=== PATIENT | female | born 1935 | race Caucasian/White ===

== ENCOUNTER 2017-01-10 14:00 | Inpatient (IN) | payer MEDICARE ==
[~2017-01-10] VITALS: Ht 154.9 cm; Wt 46.3 kg
[2017-01-10] VITALS: BP 103/32
[~2017-01-10 14:00] MED LIST: ALBU2.5V11 NEB; ASPI81TA2 PO; LACT1CAP69 PO; LEVO50TA8 PO
[2017-01-10] MEDS ORDERED: IPRATROPIUM NEB FS 0.5 MG/2.5 ML AMPUL.NEB NEB ONE (14:30)
[2017-01-10] MEDS ORDERED: ACETAMINOPHEN ES 500 MG TABLET PO ONE (14:30)
[2017-01-10] MEDS ORDERED: ALBUTEROL FS 2.5 MG/3 ML VIAL.NEB NEB ONE (14:30)
[2017-01-10] MEDS ORDERED: IV NS 0.9% 1,000 ML BAG IV ONE (14:30)
[2017-01-10] MEDS ORDERED: ACETAMINOPHEN ES 500 MG TABLET ONE (14:34)
--- NOTE | 2017-01-10 14:45 | NUR ---
PT C/O SOB SHAKING . IV STARTED 20 RT AC LABS DRAWN SENT TO LAB IV NS INFUSING WELL VSS O2 SATS 2L 98%. SON AT BEDSIDE . LIVES WITH HIS MOTHER .
[2017-01-10 15:08] LABS: EOSINOPHILS # (AUTO) 0.1 /CMM (0.0-0.7); EOSINOPHILS % (AUTO) 0.6 % (0.0-6.0); HEMATOCRIT 30 % (33-45); MEAN CORPUSCULAR HGB CONC 34 g/dl (31.0-36.0); MONOCYTES # (AUTO) 1.5 /CMM (0.1-1.30); NEUTROPHILS # (AUTO) 13.3 /CMM (1.8-8.9); WHITE BLOOD COUNT (AUTO) 16.5 K/uL (4.3-11.0)
[2017-01-10 15:18] LABS: BASOPHILS # (AUTO) 0.1 /CMM (0.0-0.2); BASOPHILS % (AUTO) 0.9 % (0.0-2.0); LYMPHOCYTES # (AUTO) 1.5 /CMM (0.8-4.8); LYMPHOCYTES % (AUTO) 8.9 % (20.0-44.0); MEAN CORPUSCULAR HEMOGLOBIN 31 PG (26.0-33.0); MEAN CORPUSCULAR VOLUME 92 fL (82-100); MONOCYTES % (AUTO) 8.9 % (2.0-12.0); NEUTROPHILS % (AUTO) 80.7 % (43.0-81.0); PLATELET COUNT (AUTO) 195 /CMM (150-450); RED BLOOD CELL COUNT(AUTO) 3.27 MIL/uL (4.0-5.2)
[2017-01-10 15:24] LABS: CALCIUM, SERUM 8.8 mg/dL (8.5-10.1); CARBON DIOXIDE 31 mmol/L (21-32); CHLORIDE 101 mmol/L (98-107); GLUCOSE 152 mg/dL (74-106); POTASSIUM 4.2 mmol/L (3.5-5.1); SODIUM SERUM 135 mmol/L (136-145); UREA NITROGEN, BLOOD 25 mg/dL (7-18)
[2017-01-10 15:32] LABS: TROPONIN I 0.021 ng/mL (0.00-0.056)
--- NOTE | 2017-01-10 15:33 | NUR ---
SON YULY NUMBER YULY [phone]
[2017-01-10 15:36] LABS: ALANINE AMINOTRANSFERASE 19 U/L (12-78); ALKALINE PHOSPHATASE 83 U/L (46-116); ASPARTATE AMINOTRANSFERASE 19 U/L (15-37); BILIRUBIN,DIRECT 0.1 mg/dL (0.0-0.2); BILIRUBIN,TOTAL 0.4 mg/dL (0.2-1.0)
[2017-01-10 15:41] LABS: INR 0.96 (0.87-1.13)
[2017-01-10] MEDS ORDERED: RANI150T8 PO (15:52)
[2017-01-10] MEDS ORDERED: TRAZ-144 PO (15:52)
[2017-01-10] MEDS ORDERED: PANT40TA4 PO (15:52)
[2017-01-10] MEDS ORDERED: BUDE10.2 IH (15:52)
[2017-01-10] MEDS ORDERED: AMLO5TAB2 PO (15:52)
[2017-01-10] MEDS ORDERED: PREG100C PO (15:52)
[2017-01-10] MEDS ORDERED: MUPI22OI2 TP (15:52)
[2017-01-10] MEDS ORDERED: CARV12.52 PO (15:52)
[2017-01-10] MEDS ORDERED: DONE5TAB34 PO (15:52)
--- NOTE | 2017-01-10 15:56 | NUR ---
RT CALLED FOR BREATHING TX
[2017-01-10] MEDS ORDERED: VANCOMYCIN 1 GM in IV D5W 250 ML IV ONE (16:30)
--- NOTE | 2017-01-10 17:00 | NUR ---
PT UP TO BEDSIDER COMMODE VOIDED UA SENT TO LAB
[2017-01-10] MEDS ORDERED: ALBUTEROL FS 2.5 MG/0.5 ML VIAL.NEB ONE (17:03)
[2017-01-10] MEDS ORDERED: IPRATROPIUM NEB FS 0.5 MG/2.5 ML AMPUL.NEB ONE (17:03)
--- NOTE | 2017-01-10 17:23 | NUR ---
PT GIVEN VANCO IVPB TO THE FLOOR CALED REPORT TO RN MANGO ARMAS FOR TRANSFER TO TELE CALLED SON YULY NOTIFIED HIM OF ADMIT
[2017-01-10 17:37] LABS: APPEARANCE,URINE Slightly Cloudy (CLEAR); BILIRUBIN,URINE Negative (NEGATIVE); BLOOD, URINE Negative Ery/uL (NEGATIVE); COLOR,URINE Yellow (YELLOW); KETONES,URINE Trace (NEGATIVE); LEUKOCYTE ESTERASE ,URINE Trace (NEGATIVE); NITRITE, URINE Negative (NEGATIVE); PROTEIN,URINE Negative (NEGATIVE); UGLUCOSE Negative (NEGATIVE); UROBILINOGEN,URINE 0.2 EU/dL (0.2)
[2017-01-10 18:30] VITALS: BP 96/40
[2017-01-10] MEDS ORDERED: PANTOPRAZOLE 40 MG VIAL IV SCH (18:30)
[2017-01-10] MEDS ORDERED: ONDANSETRON HCL/PF 4 MG/2 ML VIAL IV PRN (18:30)
[2017-01-10] MEDS: IPRATROPIUM NEB FS 0.5 MG/2.5 ML AMPUL.NEB NEB SCH (19:30)
[2017-01-10] MEDS: ALBUTEROL FS 2.5 MG/0.5 ML VIAL.NEB NEB SCH (19:30)
[2017-01-10 20:00] VITALS: BP 105/34
--- NOTE | 2017-01-10 20:00 | NUR ---
rn noteS RECEIVED PATIENT IN BED. ON O2 AT 2LPM VIA NASAL CANNULA TOLERATING WELL. ALERT AND ORIENTED. ABLE TO COMMUNICATE NEEDS VERBALLY. NO COMPLAINT OF PAIN OF THIS TIME. WILL CONTINUE TO MONITOR
--- NOTE | 2017-01-10 23:15 | NUR ---
RN NOTES NOTED PATIENT WITH DIFFICULTY BREATHING. CHECKED O2SAT 97%. ON O2 VIA NASAL CANNULA. VITAL SIGNS BP105/36, TEMP 98.7, RR 32, HR 82. PATIENT COMPLAINING OF SHORTNESS OF BREATH. BREATHING TREATMENT ADMINISTERED BY RT. HEAD OF BED ELEVATED. REPOSITION FOR COMFORT. PATIENT STILL NOTED WITH SHORTNESS OF BREATH. CALLED MD AND LEFT MESSAGE. WILL CONTINUE TO MONITOR.
[2017-01-10 23:37] LABS: BACTERIA,URINE None seen /HPF (None Seen); RBC,URINE NONE SEEN /HPF (0-2); SQUAMOUS EPITHELIAL CELL,UR Rare /HPF (None Seen); WBC,URINE 0-2 /HPF (0-3)
[2017-01-10] MEDS: ALBUTEROL FS 2.5 MG/0.5 ML VIAL.NEB NEB PRN (23:44)
[2017-01-10] MEDS: IPRATROPIUM NEB FS 0.5 MG/2.5 ML AMPUL.NEB NEB PRN (23:45)
[2017-01-11] VITALS (8 sets, daily range): BP systolic 98–123; BP diastolic 26–78
[2017-01-11] MEDS: TRAZODONE 50 MG TABLET PO PRN (01:10)
[2017-01-11] MEDS: IPRATROPIUM NEB FS 0.5 MG/2.5 ML AMPUL.NEB NEB SCH ×4 (01:19→20:04)
[2017-01-11] MEDS: ALBUTEROL FS 2.5 MG/0.5 ML VIAL.NEB NEB SCH ×4 (01:19→20:04)
[2017-01-11] MEDS ORDERED: BUMETANIDE INJ 1 MG in IV NS 0.9% 40 ML IV ONE ×4 (02:00)
[2017-01-11] MEDS ORDERED: MORPHINE SULFATE INJ 2 MG/ML DISP.SYRIN IVP PRN (02:00)
--- NOTE | 2017-01-11 02:00 | NUR ---
RN NOTES SPOKE WITH MD WITH ORDEERS FOR BUMEX DRIP, MORPHINE 2MG IV,ABG AND TO INSERT FC, NOTED AND CARRIED OUT.
[2017-01-11] MEDS ORDERED: BUMETANIDE INJ 0.25 MG/ML VIAL ONE (02:07)
[2017-01-11] MEDS ORDERED: methylPREDNISolone SOD SUCC 125 MG/2ML VIAL IV SCH (02:30)
--- NOTE | 2017-01-11 02:30 | NUR ---
RN NOTES MD (DR. GAY) SEEN AND EVALUATED PATIENT WITH ADDITIONAL ORDERS OF SOLUMEDROL ivp AND CHEST XRAY 1VIEW. NOTED AND CARRIED OUT.
[2017-01-11] MEDS ORDERED: methylPREDNISolone SOD SUCC 125 MG/2ML VIAL ONE (02:33)
[2017-01-11 02:38] LABS: ABG BASE EXCESS 3.3 mmol/L; ABG OXYGEN SATURATION 94.8 % (92.0-98.5); ABG PCO2 38.7 mmHg (35.0-45.0); ABG PH 7.465 (7.350-7.450); AaDO2 109.9 mmHg; COHb 0.3 % (0.5-1.5); MetHb 0.9 % (0.0-1.5); O2Hb 93.7 % (94.0-97.0); SITE, ABG Left Radial; VENT MODE, BG nasal cannula
--- NOTE | 2017-01-11 03:50 | NUR ---
RN NOTES RECEIVED ABG RESULTS RECEIVED, WAITING FOR CHEST XRAY RESULTS TO BE COMMUNICATED TO TO MD.-
[2017-01-11] MEDS: ALBUTEROL FS 2.5 MG/0.5 ML VIAL.NEB NEB PRN (04:34)
[2017-01-11] MEDS: IPRATROPIUM NEB FS 0.5 MG/2.5 ML AMPUL.NEB NEB PRN ×2 (04:34→16:30)
--- NOTE | 2017-01-11 04:41 | NUR ---
ABG RESULTS AND XR-CHEST RELAYED TO DR PINEDA, AWAITING CALL BACK, LABS
--- NOTE | 2017-01-11 06:32 | NUR ---
DEPARTMENT HEAD CLOSING NOTE ENDORSED PATIENT IN BED. ON O2 AT 2LPM VIA NASAL CANNULA TOLERATING WELL, O2 SAT 95 %. ALERT AND ORIENTED. ABLE TO COMMUNICATE NEEDS VERBALLY. NO COMPLAINT OF PAIN OF THIS TIME. WILL CONTINUE TO MONITOR
--- NOTE | 2017-01-11 07:35 | NUR ---
ELEVATOR TECHNICIAN OPENING RECEIVED PATIENT SLEEPING COMFORTABLY. TELE AV PACING 70. PATIENT APPEARS STABLE NO S/S SOB, DIFFICULTY BREATHING AND WILL REASSESS PAIN ONCE PATIENT AWAKE. ALL NEEDS IN REACH, BED LOWERED AND LOCKED, RAILS UPX3 FOR SAFETY WITH BED ALARM ON. WILL MONITOR CLOSELY PRN
[2017-01-11 07:37] LABS: HEMATOCRIT 30 % (33-45); HEMOGLOBIN 9.9 g/dL (11.5-14.8); LYMPHOCYTES # (AUTO) 0.8 /CMM (0.8-4.8); LYMPHOCYTES % (AUTO) 4.6 % (20.0-44.0); MEAN CORPUSCULAR HEMOGLOBIN 31 PG (26.0-33.0); MEAN CORPUSCULAR HGB CONC 33 g/dl (31.0-36.0); MEAN CORPUSCULAR VOLUME 92 fL (82-100); MONOCYTES # (AUTO) 0.2 /CMM (0.1-1.30); MONOCYTES % (AUTO) 1.1 % (2.0-12.0); NEUTROPHILS # (AUTO) 16.4 /CMM (1.8-8.9); NEUTROPHILS % (AUTO) 94.3 % (43.0-81.0); PLATELET COUNT (AUTO) 159 /CMM (150-450); RDW COEFFICIENT OF VARIATION 16.9 (11.5-15.0); RED BLOOD CELL COUNT(AUTO) 3.24 MIL/uL (4.0-5.2); WHITE BLOOD COUNT (AUTO) 17.4 K/uL (4.3-11.0)
[2017-01-11 07:53] LABS: CALCIUM, SERUM 8.9 mg/dL (8.5-10.1); CARBON DIOXIDE 28 mmol/L (21-32); CHLORIDE 100 mmol/L (98-107); CREATININE 1.1 mg/dL (0.6-1.3); GLUCOSE 177 mg/dL (74-106); MAGNESIUM 1.8 mg/dL (1.8-2.4); PHOSPHORUS 3.1 mg/dL (2.5-4.9); POTASSIUM 3.8 mmol/L (3.5-5.1); SODIUM SERUM 137 mmol/L (136-145); UREA NITROGEN, BLOOD 23 mg/dL (7-18)
[2017-01-11] MEDS ORDERED: MORPHINE SULFATE INJ 10 MG/ML DISP.SYRIN IV PRN (08:30)
[2017-01-11] MEDS ORDERED: CARVEDILOL 3.125 MG TABLET PO SCH (09:00)
[2017-01-11] MEDS: ASPIRIN 81 MG TAB.CHEW PO SCH (09:06)
[2017-01-11] MEDS: methylPREDNISolone SOD SUCC 125 MG/2ML VIAL IV SCH ×2 (09:08→17:47)
[2017-01-11] MEDS: ENOXAPARIN SODIUM 30 MG/0.3 ML DISP.SYRIN SQ SCH (09:14)
--- NOTE | 2017-01-11 11:00 | NUR ---
NEEDLE MAKER NOTE DR ESPOSITO AND DR MITCHELL AT THE BEDSIDE
[2017-01-11] MEDS ORDERED: ASPIRIN 81 MG TAB.CHEW PO SCH (11:30)
[2017-01-11] MEDS: CARVEDILOL 12.5 MG TABLET PO SCH ×2 (11:30→17:00)
[2017-01-11] MEDS: LEVOTHYROXINE SODIUM 50 MCG TABLET PO SCH (11:30)
[2017-01-11] MEDS: AMLODIPINE BESYLATE 5 MG TABLET PO SCH (11:30)
[2017-01-11] MEDS: PANTOPRAZOLE 40 MG TABLET.DR PO SCH (11:30)
[2017-01-11 12:15] LABS: THYROID STIMULATING HORMONE 0.452 uIU/mL (0.358-3.74)
[2017-01-11] MEDS: IV NS 0.9% 1,000 ML IV PRN (12:18)
--- NOTE | 2017-01-11 12:29 | NUR ---
VETERINARY POULTRY INSPECTOR NOTE PROTONIX AND SYNTHROID WERE NOT ADMINISTERED BECAUSE PATIENT HAD ATE ALREADY
[2017-01-11] MEDS: LACTOBACILLUS RHAMNOSUS GG 1 EACH CAP.SPRINK PO SCH ×2 (12:35→17:47)
[2017-01-11] MEDS: PREGABALIN 100 MG CAPSULE PO SCH ×2 (12:43→17:47)
[2017-01-11] MEDS ORDERED: LEVOFLOXACIN 500 MG /D5W 100ML 500 MG in PREMIX 1 EA IV ONE (13:00)
--- NOTE | 2017-01-11 13:47 | NUR ---
telegraph inspector notes Notified MD of manual BP, no new orders given
--- NOTE | 2017-01-11 16:18 | NUR ---
ENGINEERING TEST MECHANIC NOTES Notified dr Christianson regarding diastolic reading, no new orders given
--- NOTE | 2017-01-11 19:39 | NUR ---
telecom billing analyst closing notes All due medications given. Endorsed report to ROSALVA Milian. All needs are met. Patient is stable.
[2017-01-11] MEDS ORDERED: FAMOTIDINE 40 MG TABLET PO SCH (22:00)
[2017-01-11] MEDS ORDERED: TRAZODONE 50 MG TABLET PO SCH (22:00)
[2017-01-12] VITALS (43 sets, daily range): BP systolic 70–175; BP diastolic 29–90
[2017-01-12] MEDS: IPRATROPIUM NEB FS 0.5 MG/2.5 ML AMPUL.NEB NEB PRN ×2 (00:09→05:24)
[2017-01-12] MEDS: ALBUTEROL FS 2.5 MG/3 ML VIAL.NEB NEB PRN ×2 (00:09→05:24)
[2017-01-12] MEDS: methylPREDNISolone SOD SUCC 125 MG/2ML VIAL IV SCH ×2 (01:17→09:00)
[2017-01-12] MEDS: TRAZODONE 50 MG TABLET PO PRN ×2 (01:30→20:49)
[2017-01-12] MEDS: IV NS 0.9% 1,000 ML IV PRN (01:32)
[2017-01-12] MEDS: ALBUTEROL FS 2.5 MG/0.5 ML VIAL.NEB NEB SCH ×4 (02:30→19:38)
[2017-01-12] MEDS: IPRATROPIUM NEB FS 0.5 MG/2.5 ML AMPUL.NEB NEB SCH ×4 (02:30→19:38)
--- NOTE | 2017-01-12 05:30 | NUR ---
QUILLER MACHINE FIXER NOTES, PATIENT REQUESTING BREATHING TREATMENT, WHEN ASSESSED PATIENT, PATIENT NOTED WITH SOB AND WHEEZING, 02 SAT @86%, RR 24, WITH LABORED BREATHING, BP 150/ 60, HR 68, CALLED RT STAT, AND BREATHING TREATMENT ADMINISTERED, O2 SAT 95-97% DESPITE BREATHING TREATMENT PATIENT CONTINUE WITH LABORED BREATHING AND SOB, PATIENT PLACED IN NON RE- BREATHING MASK @15LPM, PATIENT O2 SAT DECREASED AGAIN TO HIGH 80%, CONTINUE CARE PROVIDED TO PATIENT, RN'S AND RTS AT BEDSIDE PROVIDING CONTINUE CARE.
--- NOTE | 2017-01-12 06:00 | NUR ---
RN NOTES PATIENT NOTED TO EXPERIENCE SOB. RT AT BEDSIDE TO ADMINISTER BREATHING TREATMENT, INEFFECTIVE. PATIENT STILL CONTINUES TO HAVE SOB, STAT ABG AND STAT CXR ORDERED. DR ESPOSITO MADE AWARE OF THE PATIENT'S CHANGE OF CONDITION, WELL CRITICAL RESULTS OF ABG, WITH FOLLOWING ORDERS: TRANSFER TO ICU FOR RESCUE BIPAP SETTINGS 01/28, REPEAT ABG IN 1 HOUR. IV LASIX 40MG X1 NOW. ALL ORDERS READ BACK FOR CLARIFICATION. PATIENT TRANSFERRED TO ICU VIA ACLS PROTOCOL.
[2017-01-12] MEDS ORDERED: FUROSEMIDE 40 MG/4 ML VIAL ONE (06:10)
--- NOTE | 2017-01-12 06:29 | NUR ---
FOOD AND BEVERAGE ASSOCIATE DF PROGRESSIVE DIE MAKER RESPONDED TO ROOM 115-1 TO EVALUATE PT FOR RESPIRATORY DISTRESS. PT OBSERVED ON NRM @ 15 LPM. PT IN DISTRESS, SOB, UNABLE TO SPEAK IN FULL SENTENCES, ACCESSORY MUSCLE USE OBSERVED(I SAW THIS PT EARLIER IN PM OF 01/11 AND PT WAS CONVERSING W/O DIFFICULTY. ABG/PXCR OBTAINED. ABNORMAL ABG PH 7.17 CO2 80. PT WITH STAT TRANSFER TO ICU.PLACED ON BIPAP, LASIX 40 MG IVP ADMIN. PT DISTRESS DECREASING, O2 SAT OF 99% VSS. NAD NOTED.
[2017-01-12] MEDS ORDERED: FUROSEMIDE 40 MG/4 ML VIAL IV ONE (06:30)
[2017-01-12] MEDS ORDERED: FUROSEMIDE 40 MG/4 ML VIAL IV SCH ×2 (06:30→17:30)
[2017-01-12 06:52] LABS: ABG BASE EXCESS -0.4 mmol/L; ABG OXYGEN SATURATION 87.6 % (92.0-98.5); ABG PH 7.177 (7.350-7.450); ABG PO2 64.9 mmHg (75.0-100.0); AaDO2 566.1 mmHg; COHb 0.4 % (0.5-1.5); MetHb 0.5 % (0.0-1.5); O2Hb 86.8 % (94.0-97.0); SITE, ABG Right Radial; VENT MODE, BG NRB
[2017-01-12 07:16] LABS: HEMATOCRIT 32 % (33-45); HEMOGLOBIN 10.4 g/dL (11.5-14.8); MEAN CORPUSCULAR HEMOGLOBIN 30 PG (26.0-33.0); MEAN CORPUSCULAR HGB CONC 33 g/dl (31.0-36.0); MEAN CORPUSCULAR VOLUME 93 fL (82-100); PLATELET COUNT (AUTO) 218 /CMM (150-450); RDW COEFFICIENT OF VARIATION 17.1 (11.5-15.0); RED BLOOD CELL COUNT(AUTO) 3.44 MIL/uL (4.0-5.2); WHITE BLOOD COUNT (AUTO) 20.2 K/uL (4.3-11.0)
[2017-01-12] MEDS: PANTOPRAZOLE 40 MG TABLET.DR PO SCH (07:30)
[2017-01-12] MEDS: LEVOTHYROXINE SODIUM 50 MCG TABLET PO SCH (07:30)
--- NOTE | 2017-01-12 07:34 | NUR ---
INITIAL MOTOR HOTEL MANAGER NOTE RCVD PT AWAKE AND ALERT, ON BIPAP APPEARS SOB, RT AT BEDSIDE. NO C/O PAIN VERBALIZED. V-PACING ON TELE. KHOURY TO GRAVITY DRAINING CLEAR, YELLOW URINE. LEFT FA #22 C/D/I/PATENT. NO S/O INFILTRATION/PHLEBITIS OBSERVED UPON FLUSHING. WILL CONTINUE TO MONITOR PT FOR SAFETY AND COMFORT. CALL LIGHT WITHIN REACH. BED IN LOW AND LOCKED POSITION.
[2017-01-12 07:40] LABS: ALANINE AMINOTRANSFERASE 106 U/L (12-78); ALBUMIN 3.1 g/dL (3.4-5.0); ALKALINE PHOSPHATASE 98 U/L (46-116); ASPARTATE AMINOTRANSFERASE 115 U/L (15-37); BILIRUBIN,TOTAL 0.4 mg/dL (0.2-1.0); CALCIUM, SERUM 9.3 mg/dL (8.5-10.1); CARBON DIOXIDE 28 mmol/L (21-32); CHLORIDE 98 mmol/L (98-107); CREATININE 1.1 mg/dL (0.6-1.3); GLUCOSE 263 mg/dL (74-106); MAGNESIUM 1.9 mg/dL (1.8-2.4); POTASSIUM 3.9 mmol/L (3.5-5.1); SODIUM SERUM 135 mmol/L (136-145); UREA NITROGEN, BLOOD 22 mg/dL (7-18)
[2017-01-12 08:50] LABS: ABG BASE EXCESS 1.6 mmol/L; ABG OXYGEN SATURATION 95.4 % (92.0-98.5); ABG PCO2 40.4 mmHg (35.0-45.0); ABG PH 7.428 (7.350-7.450); ABG PO2 77.1 mmHg (75.0-100.0); AaDO2 53.2 mmHg; COHb 0.3 % (0.5-1.5); MetHb 0.9 % (0.0-1.5); O2Hb 94.3 % (94.0-97.0); PEEP,BG 6 cm H2O; SITE, ABG Right Radial
[2017-01-12] MEDS: FUROSEMIDE 40 MG/4 ML VIAL IV SCH ×3 (08:58→17:21)
[2017-01-12] MEDS: methylPREDNISolone SOD SUCC 40 MG/ML VIAL IV SCH ×3 (09:00→17:08)
[2017-01-12] MEDS: PREGABALIN 100 MG CAPSULE PO SCH ×3 (09:00→17:08)
[2017-01-12] MEDS: ASPIRIN 81 MG TAB.CHEW PO SCH (09:00)
[2017-01-12] MEDS: LACTOBACILLUS RHAMNOSUS GG 1 EACH CAP.SPRINK PO SCH ×2 (09:00→17:08)
[2017-01-12] MEDS: AMLODIPINE BESYLATE 5 MG TABLET PO SCH (09:00)
[2017-01-12] MEDS ORDERED: BUDESONIDE INH SCH (09:00)
[2017-01-12] MEDS ORDERED: FORMOTEROL FUMARATE INH SCH (09:00)
[2017-01-12] MEDS: ENOXAPARIN SODIUM 30 MG/0.3 ML DISP.SYRIN SQ SCH (09:05)
--- NOTE | 2017-01-12 09:17 | NUR ---
ABG DONE. ABG RESULTS WNL. PT TRIED OFF BIPAP, PT WAS LABORED AND TACHYPNEIC. PT PLACED BACK ON BIPAP. NICK BLACKWELL IN ROOM AND AWARE.
--- NOTE | 2017-01-12 09:21 | NUR ---
DIRECTOR OF SUSTAINABILITY NOTE PT INSISTING TO BE OFF BIPAP, PT PLACED ON NC APPEARS IN DISTRESS, RT AT BEDSIDE PLACED PT BACK ON BIPAP. WILL CONTINUE TO MONITOR AM MEDS HELD, PT UNABLE TO TOLERATE BEING OFF BIPAP AT THIS TIME. WILL RE-ASSESS LATER.
[2017-01-12] MEDS: POTASSIUM CL. PREMIX PERIPHER. 50 ML IV SCH ×4 (09:31→17:08)
[2017-01-12] MEDS ORDERED: BOOST GLUCOSE CONTROL VANILLA 237 ML BOX PO SCH (10:00)
[2017-01-12 10:39] LABS: BAND % (MANUAL) 11 % (0.0-5.0); MONOCYTES % (MANUAL) 3 % (0-11.0); NEUTROPHILS % (MANUAL) 86 (42-76)
--- NOTE | 2017-01-12 10:50 | NUR ---
PT TRIED OFF BIPAP ONCE AGAIN. PT LOOKS COMFORTABLE OFF BIPAP. PLACED ON 2LPM NC.
--- NOTE | 2017-01-12 11:14 | NUR ---
WOUND CARE CONSULT PATIENT SEEN AND SKIN INTEGRITY ASSESSMENT DONE. PATIENT INDEPENDENT WITH BED MOBILITY, POOJA 18. PATIENT NOTED TO HAVE INTACT SKIN AT THIS TIME, BLANCHABLE REDNESS TO BILATERAL HEELS AND SACRAL REGION. ALL SKIN MANAGEMENT AND PREVENTION MEASURES IN PLACE. MD IN AGREEMENT WITH PLAN OF CARE. Addendum: 01/12/17 at 1116 by RICARDO MCKEON WNDNU Amended: Links added.
--- NOTE | 2017-01-12 11:40 | NUR ---
METAL STAMPER NOTE PT OFF BIPAP, TOLERATING O2 VIA NC. PT APPEARS COMFORTABLE, ABLE TO SPEAK WITHOUT BEING SOB. WILL CONTINUE TO MONITOR.
[2017-01-12] MEDS: LEVOFLOXACIN 250 MG /D5W 50 ML 250 MG in PREMIX 1 EA IV SCH (12:38)
[2017-01-12] MEDS: SOD FERRIC GLUC 125 MG in IV NS 0.9% 100 ML IV SCH (14:25)
--- NOTE | 2017-01-12 15:05 | NUR ---
MASTER ESTHETICIAN NOTE PT'S SON AT BEDSIDE UPDATED ON PT'S CONDITION. QUESTIONS ANSWERED. MYRA ANDUJAR RN AT BEDSIDE ATTEMPTING TO PUT A LINE. AFTER TRYING PT AND PT'S SON DECLINE MIDLINE. JANELLE, CRN INFORMED.
[2017-01-12] MEDS: BOOST PLUS FOOD-CHOCLATE 237 ML BOX PO SCH (17:08)
--- NOTE | 2017-01-12 18:33 | NUR ---
CROSS COUNTRY/TRACK AND FIELD COACH NOTE PT REMAINS STABLE, OFF BIPAP, TOLERATING O2 VIA NC. V-PACING ON TELE. KHOURY TO GRAVITY DRAINING CLEAR, YELLOW URINE. IV SITES REMAIN C/D/I/PATENT. NO S/O INFILTRATION/PHLEBITIS OBSERVED. PT'S CARE WILL BE ENDORSED TO TOOL/DIE MAKER RN FOR CONTINUITY OF CARE. BED IN LOW AND LOCKED POSITION. CALL LIGHT WITHIN REACH.
--- NOTE | 2017-01-12 19:41 | NUR ---
METERS SUPERINTENDENT NON ADMIT STK MEDS FOR PT SAFETY.
--- NOTE | 2017-01-12 21:01 | NUR ---
STREETCAR MOTORMAN PER PT SHE HAS A SORE THROAT SHE HAS BEEN CALLING OUT SO MUCH; REINSTRUCTED TO USE CALL LIGHT WHICH IS RIGHT NEXT TO HER. NURSE OUTSIDE ROOM; PT HAS NOT BEEN CALLING OUT HAS BEEN USING CALL LIGHT EFFECTIVELY; MULTIPLE NURSES HAVE ATTENDED TO HER. CONTINUE TO MONITOR.
[2017-01-13] VITALS (20 sets, daily range): BP systolic 79–127; BP diastolic 37–70
--- NOTE | 2017-01-13 | NUR ---
HAIR SPINNING MACHINE OPERATOR PT REMOVED NIBP CUFF; DECLINES TO PUT IT BACK ON. PT NOTED WITH MOMENTS OF CONFUSION. UPSET ABOUT THE CARE SHE IS RECEIVING. MULTIPLE ATTEMPTS TO REMIND PT OF SITUATION, ATTEMPT TO MEET ALL NEEDS. PT UPSET ONLY WANTS TO TALK TO CHARGE. CONTINUE TO MONITOR PT.
[2017-01-13] MEDS: ALBUTEROL FS 2.5 MG/0.5 ML VIAL.NEB NEB SCH ×4 (01:47→19:44)
[2017-01-13] MEDS: IPRATROPIUM NEB FS 0.5 MG/2.5 ML AMPUL.NEB NEB SCH ×4 (01:47→19:44)
--- NOTE | 2017-01-13 03:00 | NUR ---
COMPUTER SYSTEMS TECHNOLOGY INSTRUCTOR PT MORE CALM; MORE ALERT AND AWARE OF SITUATION. ABLE TO REPOSITION PT. CONTINUE TO MONITOR.
--- NOTE | 2017-01-13 03:34 | NUR ---
ANIMAL NUTRITION TEACHER REPORT GIVEN TO CARINE FOR CONTINUITY OF CARE. Addendum: 01/13/17 at 0335 by GERRY GEORGE RN PT REMAINED OFF BIPAP. NO RESP DIST NOTED. TOLERATING O2 2L VIA NC.
[2017-01-13 05:12] LABS: HEMATOCRIT 27 % (33-45); HEMOGLOBIN 9.1 g/dL (11.5-14.8); LYMPHOCYTES # (AUTO) 0.5 /CMM (0.8-4.8); LYMPHOCYTES % (AUTO) 3.5 % (20.0-44.0); MEAN CORPUSCULAR HEMOGLOBIN 31 PG (26.0-33.0); MEAN CORPUSCULAR HGB CONC 33 g/dl (31.0-36.0); MEAN CORPUSCULAR VOLUME 92 fL (82-100); MONOCYTES # (AUTO) 0.7 /CMM (0.1-1.30); MONOCYTES % (AUTO) 4.9 % (2.0-12.0); NEUTROPHILS # (AUTO) 13.1 /CMM (1.8-8.9); NEUTROPHILS % (AUTO) 91.6 % (43.0-81.0); PLATELET COUNT (AUTO) 180 /CMM (150-450); RDW COEFFICIENT OF VARIATION 16.9 (11.5-15.0); RED BLOOD CELL COUNT(AUTO) 2.95 MIL/uL (4.0-5.2); WHITE BLOOD COUNT (AUTO) 14.3 K/uL (4.3-11.0)
[2017-01-13 05:33] LABS: ALANINE AMINOTRANSFERASE 59 U/L (12-78); ALBUMIN 2.6 g/dL (3.4-5.0); ALKALINE PHOSPHATASE 73 U/L (46-116); ASPARTATE AMINOTRANSFERASE 27 U/L (15-37); BILIRUBIN,TOTAL 0.3 mg/dL (0.2-1.0); CALCIUM, SERUM 8.9 mg/dL (8.5-10.1); CARBON DIOXIDE 34 mmol/L (21-32); CHLORIDE 97 mmol/L (98-107); CREATININE 1.2 mg/dL (0.6-1.3); GLUCOSE 180 mg/dL (74-106); MAGNESIUM 1.6 mg/dL (1.8-2.4); POTASSIUM 3.9 mmol/L (3.5-5.1); SODIUM SERUM 134 mmol/L (136-145); TOTAL PROTEIN, SERUM 5.9 g/dL (6.4-8.2); UREA NITROGEN, BLOOD 36 mg/dL (7-18)
[2017-01-13 05:36] LABS: TROPONIN I 0.052 ng/mL (0.00-0.056)
[2017-01-13] MEDS: PANTOPRAZOLE 40 MG TABLET.DR PO SCH (06:48)
--- NOTE | 2017-01-13 07:41 | NUR ---
INITIAL FRAME GATE MORTISER OPERATOR NOTE RCVD PT AWAKE AND ALERT, SHOWING NO S/O DISTRESS. TOLERATING O2 VIA NC. AV PACING ON TELE. KHOURY TO GRAVITY DRAINING CLEAR, YELLOW URINE. IV SITES C/D/I/PATENT. NO S/O INFILTRATION/PHLEBITIS OBSERVED UPON FLUSHING. WILL CONTINUE TO MONITOR PT FOR SAFETY AND COMFORT. CALL LIGHT WITHIN REACH. BED IN LOW AND LOCKED POSITION.
[2017-01-13] MEDS: LEVOTHYROXINE SODIUM 50 MCG TABLET PO SCH (07:57)
[2017-01-13] MEDS: ASPIRIN 81 MG TAB.CHEW PO SCH (08:00)
[2017-01-13] MEDS: LACTOBACILLUS RHAMNOSUS GG 1 EACH CAP.SPRINK PO SCH ×2 (08:00→17:32)
[2017-01-13] MEDS: AMLODIPINE BESYLATE 5 MG TABLET PO SCH (08:00)
[2017-01-13] MEDS: methylPREDNISolone SOD SUCC 40 MG/ML VIAL IV SCH ×3 (08:00→17:32)
[2017-01-13] MEDS: PREGABALIN 100 MG CAPSULE PO SCH ×3 (08:00→17:32)
[2017-01-13] MEDS: ENOXAPARIN SODIUM 30 MG/0.3 ML DISP.SYRIN SQ SCH (08:01)
--- NOTE | 2017-01-13 08:07 | NUR ---
RT NOTE PT IN STABLE CONDITION. PT FOUND ON NC AT 2L. PT AWAKE AND ALERT. APPEARS COMFORTABLE. SATURATION 99% HR 73. BIPAP AT BED SIDE. AMBU BAG AT BED SIDE. NO DISTRESS NOTED. WILL CONTINUE TO MONITOR. Addendum: 01/13/17 at 0808 by JENNIFER DUNHAM RT Amended: Links added.
[2017-01-13] MEDS: BOOST PLUS FOOD-CHOCLATE 237 ML BOX PO SCH ×3 (08:11→17:33)
[2017-01-13] MEDS ORDERED: Magnesium 1GM/D5W 100ML PREMIX PIGGYBACK IV ONE ×2 (09:00→10:00)
[2017-01-13] MEDS: Magnesium 1GM/D5W 100ML PREMIX 100 ML IV SCH ×2 (09:53→11:17)
[2017-01-13] MEDS: LEVOFLOXACIN 250 MG /D5W 50 ML 250 MG in PREMIX 1 EA IV SCH (13:51)
[2017-01-13] MEDS ORDERED: HYDROMORPHONE INJ 2 MG/ML DISP.SYRIN IV PRN (15:30)
[2017-01-13] MEDS: SOD FERRIC GLUC 125 MG in IV NS 0.9% 100 ML IV SCH (15:40)
--- NOTE | 2017-01-13 18:04 | NUR ---
SUPERVISOR SECURITIES VAULT NOTE REPORT GIVEN TO Rajeev WOMACK RN. PT REMAINS STABLE, SHOWING NO S/O DISTRESS OR C/O PAIN VERBALIZED. TOLERATING O2 VIA NC. KHOURY TO GRAVITY DRAINING CLEAR, YELLOW URINE. IV SITES C/D/I/PATENT. NO S/O INFILTRATION/PHLEBITIS OBSERVED UPON FLUSHING. PT'S SON AT BEDSIDE UPDATED ON PT'S CONDITION.
--- NOTE | 2017-01-13 18:17 | NUR ---
TRANSFER RN NOTE PT TRANSFERRED PER PROTOCOL, VIA BED IN STABLE CONDITION. PT'S BELONGINGS TRANSPORTED WELL. PT REMAINS STABLE TAKEN TO ROOM 325-1 PT'S CARE ENDORSED TO ROSALVA WOMACK.
--- NOTE | 2017-01-13 18:28 | NUR ---
TELEMETRY NOTES RECEIVED PT TRANSFER FROM ICU. AO X 3, ON 2L O2, NOT IN ANY DISTRESS. VSS. TELEMETRY READS V PACING, HR 79 BELONGINGS CHECKED. UNIT ORIENTATION DONE. CALL LIGHT WITHIN REACH. MADE COMFORTABLE. WILL ENDORSE TO NEXT SHIFT FOR KUSUM.
--- NOTE | 2017-01-13 19:15 | NUR ---
MS RN NOTES RECEIVED TRANSFER FROM ICU,A/O X 2-3,BREATHING REGULAR,NOT IN ANY FORM OF DISTRESS.WITH KHOURY CATH IN PLACE DRAINING YELLOWISH OUTPUT.SALINE LOCK BILATERAL ARM INTACT AND PATENT.FALL PRECAUTION OBSERVED.BED ON LOWEST POSITION AND LOCK.CALL LIGHT IN REACH,NEEDS ANTICIPATED.
--- NOTE | 2017-01-13 19:45 | NUR ---
MS RN NOTES RT AT BEDSIDE ADMINISTERING DUE BREATHING TREATMENT.WILL CONTINUE TO MONITOR STATUS.
--- NOTE | 2017-01-13 20:30 | NUR ---
PHARMACIST TECHNICIAN NOTES TELE READING V-PACING,RATE OF 82 ON TELE MONITOR.
[2017-01-13] MEDS: DONEPEZIL 5 MG TABLET PO SCH (21:43)
[2017-01-13] MEDS: TRAZODONE 50 MG TABLET PO PRN (23:03)
--- NOTE | 2017-01-13 23:03 | NUR ---
SAND MILL GRINDER NOTES C/O INSOMNIA,TRAZODONE 50MG PO GIVEN PER PATIENT REQUEST
[2017-01-13] MEDS: ALBUTEROL FS 2.5 MG/3 ML VIAL.NEB NEB PRN (23:29)
[2017-01-14] VITALS: BP 127/50
--- NOTE | 2017-01-14 00:42 | NUR ---
BUSINESS INSIGHT AND ANALYTICS MANAGER NOTES STILL AWAKE,CLAIMED SHE WANTS TO GO HOME THIS MORNING.
[2017-01-14] MEDS: IPRATROPIUM NEB FS 0.5 MG/2.5 ML AMPUL.NEB NEB SCH ×4 (02:27→19:40)
[2017-01-14] MEDS: ALBUTEROL FS 2.5 MG/0.5 ML VIAL.NEB NEB SCH ×4 (02:27→19:40)
[2017-01-14 04:00] VITALS: BP 149/60
--- NOTE | 2017-01-14 06:23 | NUR ---
JET HANDLER NOTES ON BED A/O X2-3 WITH PERIODS OF CONFUSION.WITH KNOWN HX OF MILD DEMENTIA.VERBALIZING SHE WANTS TO GO HOME,REFUSING BLOOD DRAW AT THE MOMENT,SHE WANTS IT LATER.KEPT WARM AND COMFORTABLE.CALL LIGHT IN REACH,NEEDS ATTENDED.WILL ENDORSE TO DAY NURSE FOR KUSUM.
--- NOTE | 2017-01-14 07:55 | NUR ---
MS/BIODIESEL ENGINEERING MANAGER OPENING NOTES. PT IN LOW SEMI FOWLERS IN BED. A&0X3 AT THIS BUT CONFRONTATIONAL AND AGITATED REGARDING HER ROOM PARTNER'S CONSTANT YELLING. SHE REPORTS NOT SLEEPING THROUGH THE NIGHT AND REQUESTING A ROOM CHANGE. CHARGE NURSE NOTIFIED. PT WITH NC AT 3LPM AND SAO2 96%. IVC AT L.AC G#22 AND R .UA G#20 BOTH PATENT AND S.L. BED IN LOWEST LOCKED POSITION, HANDRAILSX2 AND CALL CHAPPELL WITH REACH. PT BRIEFED ON TODAY'S POC.
[2017-01-14 08:00] VITALS: BP 115/56
[2017-01-14] MEDS: PANTOPRAZOLE 40 MG TABLET.DR PO SCH (08:18)
[2017-01-14] MEDS: LEVOTHYROXINE SODIUM 50 MCG TABLET PO SCH (08:18)
[2017-01-14] MEDS: DILTIAZEM HCL CD 240 MG PO SCH (08:19)
[2017-01-14] MEDS: methylPREDNISolone SOD SUCC 40 MG/ML VIAL IV SCH ×3 (08:19→16:52)
[2017-01-14] MEDS: ASPIRIN 81 MG TAB.CHEW PO SCH (08:19)
[2017-01-14] MEDS: PREGABALIN 100 MG CAPSULE PO SCH ×3 (08:20→16:52)
[2017-01-14] MEDS: LACTOBACILLUS RHAMNOSUS GG 1 EACH CAP.SPRINK PO SCH ×2 (08:20→16:52)
[2017-01-14] MEDS: ENOXAPARIN SODIUM 30 MG/0.3 ML DISP.SYRIN SQ SCH (08:30)
[2017-01-14] MEDS: BOOST PLUS FOOD-CHOCLATE 237 ML BOX PO SCH ×3 (08:35→16:56)
--- NOTE | 2017-01-14 10:00 | NUR ---
MS RN NOTES. TELE MONITORING D/C. PT HAS DECLINED MOVING TO A NEW ROOM, REPORTS THAT WE SHOULD MOVE HER ROOM MATE INSTEAD. CHARGE AWARE.
--- NOTE | 2017-01-14 10:30 | NUR ---
MS RN NOTES. PT REFUSED BLOOD DRAWS. PT EDUCATED ON TECHNIQUE OF LAB DRAW AND BENEFIT OF LAB RESULTS.
[2017-01-14] MEDS: FLUTICASONE/VILANTEROL 1 EACH BLST.W.DEV IH SCH (13:34)
[2017-01-14] MEDS: LEVOFLOXACIN 250 MG /D5W 50 ML 250 MG in PREMIX 1 EA IV SCH (13:52)
[2017-01-14] MEDS: ALBUTEROL FS 2.5 MG/3 ML VIAL.NEB NEB PRN (14:34)
--- NOTE | 2017-01-14 14:46 | NUR ---
MS RN NOTES. PT SITTING IN BED A&0X3. NO OBVIOUS CHANGE IN PATIENT STATUS AT THIS TIME. PT SON HERRERA VISTED FOR LUNCH. PT RELIEVED TO HAVE PRIVATE ROOM.
[2017-01-14] MEDS: SOD FERRIC GLUC 125 MG in IV NS 0.9% 100 ML IV SCH (14:56)
[2017-01-14 16:00] VITALS: BP 126/47
--- NOTE | 2017-01-14 19:12 | NUR ---
MS RN CLOSING NOTES. PT A&0X3 RESTING LOW SEMI FOWLERS, BED IN LOWEST LOCKED POSITION WITH HAND RAILSX2 AND CALL CHAPPELL WITHIN REACH. PT IVCX2 AND KHOURY INTACT AND OPERATIONAL. PT REPORTS NO PAIN OR DISTRESS AT THIS TIME. ALL DAY SHIFT DUTIES ATTENDED TO. PT WITHOUT CONCERN OR COMPLAINT AT THIS TIME. WILL ENDORSE TO NIGHT NURSE
--- NOTE | 2017-01-14 19:40 | NUR ---
MS/RN OPENING NOTES PT AWAKE, SITTING UP IN BED, TALKING ON THE PHONE. ON 3L O2 VIA NC, BREATHING APPEARS EVEN AND UNLABORED, NO APPARENT DISTRESS NOTED. NO FACIAL GRIMACING OR SIGNS OF PAIN. KHOURY IN PLACE AND DRAINING TO GRAVITY. IV TO LEFT HAND AND AUGIE PATENT AND INTACT. BED IN LOW/LOCKED POSITION WITH CALL LIGHT IN REACH. SIDE RAILS UPX2. BED ALARM ON FOR SAFETY. WILL CONTINUE TO MONITOR
[2017-01-14 20:00] VITALS: BP 126/58
[2017-01-14 20:21] VITALS: BP 126/58
[2017-01-14] MEDS: DONEPEZIL 5 MG TABLET PO SCH (22:03)
[2017-01-15] MEDS: ALBUTEROL FS 2.5 MG/0.5 ML VIAL.NEB NEB SCH ×5 (00:33→23:07)
[2017-01-15] MEDS: IPRATROPIUM NEB FS 0.5 MG/2.5 ML AMPUL.NEB NEB SCH ×7 (00:33→23:08)
[2017-01-15] MEDS: IPRATROPIUM NEB FS 0.5 MG/2.5 ML AMPUL.NEB NEB PRN (04:51)
[2017-01-15] MEDS: ALBUTEROL FS 2.5 MG/3 ML VIAL.NEB NEB PRN (04:51)
--- NOTE | 2017-01-15 06:57 | NUR ---
MS/RN CLOSING NOTES PT ASLEEP, AROUSABLE TO NAME/LIGHT TOUCH. ON 3L O2 VIA NC, BREATHING EVEN AND UNLABORED. BREATHING TX PROVIDED ORDERED. KHOURY IN PLACE AND DRAINING TO GRAVITY. IV TO LEFT HAND AND AUGIE PATENT AND INTACT. MADE PT COMFORTABLE DURING SHIFT. NO SIGNIFICANT CHANGES OVERNIGHT. BED IN LOW/LOCKED POSITION WITH CALL LIGHT IN REACH. SIDE RAILS UPX3 BED ALARM ON FOR SAFETY. WILL ENDORSE TO AM SHIFT KUSUM.
[2017-01-15] MEDS: PANTOPRAZOLE 40 MG TABLET.DR PO SCH (07:30)
--- NOTE | 2017-01-15 07:40 | NUR ---
MS RN OPENING NOTE RECEIVED SBAR REPORT AT THE BEDSIDE. PATIENT IS A/O X3, AWAKE AND RESPONSIVE. NO SOB/DISTRESS/DYSPNEA PRESENT. SPO2 94 % ON 3 L O2. CHEST IS RISING EQUALLY BILATERALLY. DENIES PAIN/DISCOMFORT AT THIS TIME. BED IS LOCKED IN LOWEST POSITION, SIDE RAILS UP X2, BED ALARM IS ON. CALL LIGHT WITHIN REACH. PATIENT EDUCATED TO CALL FOR ASSISTANCE USING THE CALL LIGHT VIA TEACH BACK METHOD. PATIENT VERBALIZED FULL UNDERSTANDING OF THE TEACHING. WILL CONTINUE TO ASSESS AND MONITOR THROUGHOUT THE SHIFT.
[2017-01-15 08:00] VITALS: BP 129/73
[2017-01-15] MEDS: ENOXAPARIN SODIUM 30 MG/0.3 ML DISP.SYRIN SQ SCH (09:00)
[2017-01-15] MEDS: LACTOBACILLUS RHAMNOSUS GG 1 EACH CAP.SPRINK PO SCH ×2 (09:12→17:42)
[2017-01-15] MEDS: BOOST PLUS FOOD-CHOCLATE 237 ML BOX PO SCH ×3 (09:13→17:44)
[2017-01-15] MEDS: PREGABALIN 100 MG CAPSULE PO SCH ×3 (09:14→17:42)
[2017-01-15] MEDS: LEVOTHYROXINE SODIUM 50 MCG TABLET PO SCH (09:14)
[2017-01-15] MEDS: methylPREDNISolone SOD SUCC 40 MG/ML VIAL IV SCH ×3 (09:16→17:42)
[2017-01-15] MEDS: DILTIAZEM HCL CD 240 MG PO SCH (09:16)
[2017-01-15] MEDS: ASPIRIN 81 MG TAB.CHEW PO SCH (09:16)
[2017-01-15] MEDS: FLUTICASONE/VILANTEROL 1 EACH BLST.W.DEV IH SCH (09:18)
--- NOTE | 2017-01-15 09:21 | NUR ---
MS RN NOTE PATIENT REFUSED LOVENOX. EDUCATION PROVIDED ON RISKS AND BENEFITS OF THE MEDICATION. PATIENT REFUSED THE MEDICATION, WHILE VERBALIZED UNDERSTANDING OF THE RISKS AND BENEFITS.
[2017-01-15] MEDS: LEVOFLOXACIN (250MG) 250 MG TABLET PO SCH (13:04)
--- NOTE | 2017-01-15 13:10 | NUR ---
MS RN NOTE ISOSORBIDE DINITRATE [facility] TOOK OUT LEVOQUIN REPEATEDLY. LEVAQUIN ADMINISTERED PRESCRIBED. ISOSORBIDE PLACED IN THE BIN FOR THE PHARMACY TO BRAIDER SETTER.
[2017-01-15] MEDS: SOD FERRIC GLUC 125 MG in IV NS 0.9% 100 ML IV SCH (15:10)
[2017-01-15] MEDS: ACETAMINOPHEN 325 MG TABLET PO PRN (15:45)
[2017-01-15 16:00] VITALS: BP 130/78
[2017-01-15] MEDS ORDERED: ALBUTEROL FS 2.5 MG/3 ML VIAL.NEB NEB PRN (17:23)
--- NOTE | 2017-01-15 17:50 | NUR ---
MS RN NOTE RIGHT UPPER ARM IV CATHETER WAS LICKING. IV SITE DISCONTINUED. IV CATHETER REMOVED WITH THE TIP INTACT. OCCLUSIVE DRESSING APPLIED. PATIENT TOLERATED THE PROCEDURE WELL.
--- NOTE | 2017-01-15 18:45 | NUR ---
MS RN CLOSING NOTE PATIENT IS A/O X3, AWAKE AND RESPONSIVE.NO SOB/DISTRESS/DYSPNEA PRESENT. SPO2 96 % ON 2 L O2. CHEST IS RISING EQUALLY BILATERALLY. DENIES PAIN/DISCOMFORT AT THIS TIME. HOB ELEVATED THROUGHOUT THE DAY. ALL DUE MEDICATIONS ADMINISTERED. BED IS LOCKED IN LOWEST POSITION, SIDE RAILS UP X2, BED ALARM IS ON. CALL LIGHT WITHIN REACH. PATIENT EDUCATED TO CALL FOR ASSISTANCE USING THE CALL LIGHT VIA TEACH BACK METHOD. PATIENT VERBALIZED FULL UNDERSTANDING OF THE TEACHING. FAMILY AT THE BEDSIDE. ALL NEEDS ARE MET AT THIS TIME. WILL ENDORSE TO THE SOFTWARE DEVELOPER MID LEVEL NURSE FOR THE KUSUM.
--- NOTE | 2017-01-15 19:30 | NUR ---
MS/RN OPENING NOTES PT AWAKE, A/OX3. ON 2L O2 VIA NC, BREATHING EVEN AND UNLABORED. FAMILY MEMBER AT BEDSIDE. HOB ELEVATED. IV TO LEFT HAND PATENT AND INTACT. KHOURY IN PLACE AND DRAINING TO GRAVITY. BED IN LOW/LOCKED POSITION WITH CALL LIGHT IN REACH. SIDE RAILS UPX2 WITH BED ALARM ON FOR SAFETY. WILL CONTINUE TO MONITOR
[2017-01-15 20:00] VITALS: BP 135/49
--- NOTE | 2017-01-15 21:00 | NUR ---
MS/RN NOTES PT COMPLAINING OF INDIGESTION. SPOKE TO DR POE WITH ORDERS FOR MAALOX 30ML PO Q6H PRN. ORDERS NOTED AND CARRIED OUT.
[2017-01-15] MEDS ORDERED: MAG HYDROX/AL HYDROX/SIMETH 30 ML UDC ONE (21:04)
[2017-01-15] MEDS: MAG HYDROX/AL HYDROX/SIMETH 30 ML UDC PO PRN (21:05)
[2017-01-15] MEDS: DONEPEZIL 5 MG TABLET PO SCH (21:58)
[2017-01-16] MEDS: IPRATROPIUM NEB FS 0.5 MG/2.5 ML AMPUL.NEB NEB SCH ×4 (02:30→11:34)
[2017-01-16] MEDS: ALBUTEROL FS 2.5 MG/0.5 ML VIAL.NEB NEB SCH ×3 (02:30→11:34)
[2017-01-16] MEDS ORDERED: MAG HYDROX/AL HYDROX/SIMETH 30 ML UDC ONE (04:25)
[2017-01-16] MEDS: ACETAMINOPHEN 325 MG TABLET PO PRN ×2 (04:28→11:28)
[2017-01-16] MEDS: MAG HYDROX/AL HYDROX/SIMETH 30 ML UDC PO PRN (04:28)
--- NOTE | 2017-01-16 04:32 | NUR ---
MS/RN NOTES PT C/O OF SOME ABDOMINAL PAIN 05/02 AND INDIGESTION. REQUESTING TYLENOL AND MAALOX. ADMINISTERED ORDERED.
--- NOTE | 2017-01-16 06:40 | NUR ---
MS/RN NOTES PT AWAKE, A/OX3. ON 2L O2 VIA NC, BREATHING EVEN SLIGHTLY LABORED. PT ASKING FOR BREATHING TX. RT CALLED. PT REFUSED AM LAB DRAW, WANTED TO GET BREATHING TX FIRST. NO COMPLAINTS OF INDIGESTION OR PAIN AT THIS TIME. KHOURY IN PLACE AND DRAINING TO GRAVITY. IV TO LEFT HAND PATENT AND INTACT. MADE PT COMFORTABLE DURING SHIFT. SIDE RAILS UPX2 AND CALL LIGHT IN REACH. BED IN LOW/LOCKED POSITION. WILL ENDORSE TO AM SHIFT KUSUM.
--- NOTE | 2017-01-16 06:59 | NUR ---
MS RN OPENING NOTE RECEIVED bedside SBAR REPORT. PATIENT IS A/O X3, AWAKE AND RESPONSIVE. RESPIRATOEY THERAPIST AT THE BEDSIDE. PATIENT IS RECEIVING BREATHING TREATMENT. NO SOB/DISTRESS/DYSPNEA PRESENT. SPO2 96 % ON 2 L O2. CHEST IS RISING EQUALLY BILATERALLY. DENIES PAIN/DISCOMFORT AT THIS TIME. BED IS LOCKED IN LOWEST POSITION, SIDE RAILS UP X2, BED ALARM IS ON. CALL LIGHT WITHIN REACH. PATIENT EDUCATED TO CALL FOR ASSISTANCE USING THE CALL LIGHT VIA TEACH BACK METHOD. PATIENT VERBALIZED FULL UNDERSTANDING OF THE TEACHING. WILL CONTINUE TO ASSESS AND MONITOR THROUGHOUT THE SHIFT.
[2017-01-16] MEDS: PANTOPRAZOLE 40 MG TABLET.DR PO SCH (07:50)
[2017-01-16] MEDS: LEVOTHYROXINE SODIUM 50 MCG TABLET PO SCH (07:50)
[2017-01-16 08:00] VITALS: BP 114/51
[2017-01-16 09:00] VITALS: BP 110/59
[2017-01-16] MEDS: ENOXAPARIN SODIUM 30 MG/0.3 ML DISP.SYRIN SQ SCH (09:00)
[2017-01-16] MEDS: DILTIAZEM HCL CD 240 MG PO SCH (09:00)
[2017-01-16] MEDS: FLUTICASONE/VILANTEROL 1 EACH BLST.W.DEV IH SCH (09:33)
[2017-01-16] MEDS: LACTOBACILLUS RHAMNOSUS GG 1 EACH CAP.SPRINK PO SCH (09:35)
[2017-01-16] MEDS: PREGABALIN 100 MG CAPSULE PO SCH ×2 (09:37→12:12)
[2017-01-16] MEDS: ASPIRIN 81 MG TAB.CHEW PO SCH (09:37)
[2017-01-16] MEDS: methylPREDNISolone SOD SUCC 40 MG/ML VIAL IV SCH ×2 (09:38→12:12)
[2017-01-16] MEDS: BOOST PLUS FOOD-CHOCLATE 237 ML BOX PO SCH ×2 (09:39→12:12)
--- NOTE | 2017-01-16 09:50 | NUR ---
MS RN NOTE PATIENT REFUSED ENOXAPARIN AND CARDIZEM. RISKS AND BENEFITS DISCUSSED.
[2017-01-16 10:01] LABS: HEMATOCRIT 32 % (33-45); HEMOGLOBIN 10.5 g/dL (11.5-14.8); LYMPHOCYTES # (AUTO) 0.4 /CMM (0.8-4.8); LYMPHOCYTES % (AUTO) 2.3 % (20.0-44.0); MEAN CORPUSCULAR HEMOGLOBIN 30 PG (26.0-33.0); MEAN CORPUSCULAR HGB CONC 32 g/dl (31.0-36.0); MEAN CORPUSCULAR VOLUME 93 fL (82-100); MONOCYTES # (AUTO) 0.8 /CMM (0.1-1.30); MONOCYTES % (AUTO) 4.1 % (2.0-12.0); NEUTROPHILS # (AUTO) 17.9 /CMM (1.8-8.9); NEUTROPHILS % (AUTO) 93.6 % (43.0-81.0); PLATELET COUNT (AUTO) 301 /CMM (150-450); RDW COEFFICIENT OF VARIATION 16.8 (11.5-15.0); WHITE BLOOD COUNT (AUTO) 19.2 K/uL (4.3-11.0)
[2017-01-16 10:15] LABS: CALCIUM, SERUM 9.3 mg/dL (8.5-10.1); CARBON DIOXIDE 35 mmol/L (21-32); CHLORIDE 97 mmol/L (98-107); GLUCOSE 201 mg/dL (74-106); MAGNESIUM 2.5 mg/dL (1.8-2.4); PHOSPHORUS 2.8 mg/dL (2.5-4.9); POTASSIUM 4.4 mmol/L (3.5-5.1); SODIUM SERUM 136 mmol/L (136-145); UREA NITROGEN, BLOOD 40 mg/dL (7-18)
[2017-01-16] MEDS ORDERED: DILT240C88 PO (10:58)
[2017-01-16] MEDS ORDERED: METH4TAB17 PO (10:58)
[2017-01-16] MEDS ORDERED: LEVO250T2 PO (10:58)
[2017-01-16] MEDS ORDERED: PRED20TA PO (10:58)
[2017-01-16] MEDS: LEVOFLOXACIN (250MG) 250 MG TABLET PO SCH (12:12)
--- NOTE | 2017-01-16 13:45 | NUR ---
ms rn note catheter removed. patient tolerated the procedure well.
--- NOTE | 2017-01-16 14:45 | NUR ---
MS RN NOTE PATIENT VOIDED. DENIES BURNING SENSATION. ANY S/S OF DISCOMFORT ON URINATION.
--- NOTE | 2017-01-16 15:00 | NUR ---
MS ATTENDANT HONOR BAR NOTE DISCHARGE INSTRUCTIONS PROVIDED TO THE PATIENT. DISCHARGE ORDERS DISCUSSED. EDUCATION PROVIDED VIA TEACH BACK METHOD. PATIENT/SON VERBALIZED UNDERSTANDING OF THE TEACHINGS. ALL BELONGINGS ACCOUNTED FOR. IV CATHETER REMOVED WITH THE TIP INTACT. OCCLUSIVE DRESSING APPLIED. PATIENT TOLERATED THE PROCEDURE WELL. VS WNL. SPO2 95% ON RA. PATIENT IS LEAVING THE UNIT ACCOMPANIED BY THE SON VIA WHEELCHAIR IN STABLE CONDITION. PATIENT IS TO GO HOME ACCOMPANIED BY THE SON VIA PRIVATE CAR. HOME HEALTH ARRANGEMENTS DISCUSSED WITH THE BANK NOTE DESIGNER AND THE PATIENT.
== END 2017-01-16 15:00 | disposition home health service (06) | DRG 177 ==
LOC: ER 14:03 → TELE1 16:36 → ICU 01-12 06:03 → MED 01-13 18:39 → TELE 01-14 02:03 → MED 01-14 08:25
PROVIDERS: ADMIT Legal Medicine; ATTEND Legal Medicine
PROC: 5A09357 Assistance with Respiratory Ventilation, Less than 24 Consecutive Hours, Continuous Positive Airway Pressure (ICD-10-PCS; principal; 2017-01-12)
DX: J15.6 Pneumonia due to other Gram-negative bacteria (principal); J96.02 Acute respiratory failure with hypercapnia; J96.01 Acute respiratory failure with hypoxia; J44.0 Chronic obstructive pulmonary disease with (acute) lower respiratory infection; J44.1 Chronic obstructive pulmonary disease with (acute) exacerbation; G62.9 Polyneuropathy, unspecified; J15.9 Unspecified bacterial pneumonia; E03.9 Hypothyroidism, unspecified; I10 Essential (primary) hypertension; I25.10 Atherosclerotic heart disease of native coronary artery without angina pectoris; K21.9 Gastro-esophageal reflux disease without esophagitis; Z95.0 Presence of cardiac pacemaker; I34.2 Nonrheumatic mitral (valve) stenosis; R79.89 Other specified abnormal findings of blood chemistry; J40 Bronchitis, not specified as acute or chronic; E61.1 Iron deficiency; F03.90 Unspecified dementia, unspecified severity, without behavioral disturbance, psychotic disturbance, mood disturbance, and anxiety
CPT/HCPCS: 36415; 36600; 71010-TC; 71250-TC; 80048-TC; 80053-TC; 80076-TC; 81000-TC; 82728-TC; 82803-TC; 83540-TC; 83605-TC; 83735-TC; 83880; 84100-TC; 84439-TC; 84443-TC; 84484-TC; 85025-TC; 85730-TC; 87040-TC; 87081-TC; 87086-TC; 93307-TC; 94799-TC; 97116-TC; 97530-TC; A4216; A4606; C9113; J1650; J1940; J1956; J2405; J2916; J2920; J2930; J3370; J3475; J3480; J3490; J7030; J7050; J7060; Z7610

== ENCOUNTER 2017-01-24 13:50 | Inpatient (IN) | payer MEDICARE ==
[~2017-01-24] VITALS: Ht 157.5 cm; Wt 58.1 kg
[2017-01-24] VITALS (16 sets, daily range): BP systolic 105–136; BP diastolic 36–63
[~2017-01-24 13:50] MED LIST changes: +ASPI-1169 PO; -ASPI81TA2 PO; +BUDE10.2 IH; +DILT240C88 PO; +DONE5TAB34 PO; +LEVO250T2 PO; +METH4TAB17 PO; +MUPI22OI2 TP; +PANT40TA4 PO; +PRED20TA PO; +PREG100C PO; +RANI150T8 PO; +TRAZ-144 PO
[2017-01-24] MEDS ORDERED: Magnesium 1GM/D5W 100ML PREMIX 200 ML IV ONE ×2 (13:52→13:59)
[2017-01-24] MEDS ORDERED: ETOMIDATE 2 MG/ML VIAL IV ONE ×2 (13:53→14:00)
[2017-01-24] MEDS ORDERED: SUCCINYLCHOLINE CHLORIDE 20 MG/ML VIAL IV ONE ×2 (13:53→14:00)
--- NOTE | 2017-01-24 13:55 | NUR ---
BIB RA 78 FROM HOME C/O SOB ALTERED GIVEN ALBUTEROL AND NONREBREATHER MASK, RT AND MD AT BEDSIDE.
--- NOTE | 2017-01-24 13:55 | NUR ---
2 BAGS MAG INFUSED IN 2 HOURS END TIME 6514
[2017-01-24] MEDS ORDERED: methylPREDNISolone SOD SUCC 125 MG/2ML VIAL IV ONE (14:00)
[2017-01-24] MEDS ORDERED: PROPOFOL 100 ML IV ONE ×2 (14:00→14:02)
[2017-01-24] MEDS ORDERED: IPRATROPIUM NEB FS 0.5 MG/2.5 ML AMPUL.NEB NEB ONE (14:00)
[2017-01-24] MEDS ORDERED: IV NS 0.9% 1,000 ML BAG IV ONE (14:00)
[2017-01-24] MEDS ORDERED: ALBUTEROL FS 2.5 MG/3 ML VIAL.NEB NEB ONE (14:00)
[2017-01-24] MEDS ORDERED: CEFEPIME 1 GM in IV D5W 50 ML IV ONE (14:00)
[2017-01-24] MEDS ORDERED: VANCOMYCIN 1 GM in IV D5W 250 ML IV ONE (14:00)
--- NOTE | 2017-01-24 14:00 | NUR ---
IV ACCESS OBTAINED, BLOOD SAMPLE SENT TO LAB, KHOURY CATH INSERTED, URINE COLLECTED, SENT TO LAB.
[2017-01-24] MEDS ORDERED: methylPREDNISolone SOD SUCC 125 MG/2ML VIAL ONE (14:02)
--- NOTE | 2017-01-24 14:02 | NUR ---
PT TO CTSCAN.
[2017-01-24] MEDS ORDERED: IPRATROPIUM NEB FS 0.5 MG/2.5 ML AMPUL.NEB ONE (14:03)
[2017-01-24] MEDS ORDERED: ALBUTEROL FS 2.5 MG/3 ML VIAL.NEB ONE (14:03)
[2017-01-24 14:25] LABS: BASOPHILS # (AUTO) 0.6 /CMM (0.0-0.2); BASOPHILS % (AUTO) 2.3 % (0.0-2.0); HEMATOCRIT 30 % (33-45); LYMPHOCYTES # (AUTO) 1.7 /CMM (0.8-4.8); MEAN CORPUSCULAR HEMOGLOBIN 32 PG (26.0-33.0); MEAN CORPUSCULAR HGB CONC 34 g/dl (31.0-36.0); MEAN CORPUSCULAR VOLUME 94 fL (82-100); MONOCYTES # (AUTO) 1.7 /CMM (0.1-1.30); NEUTROPHILS # (AUTO) 24.2 /CMM (1.8-8.9); NEUTROPHILS % (AUTO) 85.7 % (43.0-81.0); PLATELET COUNT (AUTO) 383 /CMM (150-450); RED BLOOD CELL COUNT(AUTO) 3.16 MIL/uL (4.0-5.2); WHITE BLOOD COUNT (AUTO) 28.2 K/uL (4.3-11.0)
--- NOTE | 2017-01-24 14:28 | NUR ---
RT NOTE PT INTUBATED PER MD ORDER. 7.5 ETT 22 CM AT LIP. SETTINGS PRESCRIBED AC 16 400 100% +5. ALARMS SET PER PROTOCOL AND AUDIBLE. AMBU BAG AT BED SIDE. VENT PLUGGED IN TO RED OUTLET. NO DISTRESS NOTED WILL CONTINUE TO MONITOR. Addendum: 01/24/17 at 1430 by JENNIFER DUNHAM RT Amended: Links added.
[2017-01-24] MEDS ORDERED: DILT240C56 PO (14:29)
[2017-01-24] MEDS ORDERED: CARV6.252 PO (14:29)
[2017-01-24 14:32] LABS: CALCIUM, SERUM 8.9 mg/dL (8.5-10.1); CARBON DIOXIDE 35 mmol/L (21-32); CHLORIDE 95 mmol/L (98-107); CREATININE 0.7 mg/dL (0.6-1.3); GLUCOSE 217 mg/dL (74-106); POTASSIUM 4.8 mmol/L (3.5-5.1); SODIUM SERUM 130 mmol/L (136-145); UREA NITROGEN, BLOOD 33 mg/dL (7-18)
[2017-01-24 14:35] LABS: INR 0.95 (0.87-1.13); PROTHROMBIN TIME 9.9 SECS (9.5-12.7)
--- NOTE | 2017-01-24 14:36 | NUR ---
SEISMIC SURVEY ASSISTANT AT BEDSIDE
[2017-01-24 14:40] LABS: TROPONIN I < 0.017 ng/mL (0.00-0.056)
[2017-01-24 14:44] LABS: ALANINE AMINOTRANSFERASE 41 U/L (12-78); ALBUMIN 3.3 g/dL (3.4-5.0); ALKALINE PHOSPHATASE 77 U/L (46-116); ASPARTATE AMINOTRANSFERASE 25 U/L (15-37); B-TYPE NATRIURETIC PEPTIDE 1171 PG/ML (0-125); BILIRUBIN,TOTAL 0.3 mg/dL (0.2-1.0); TOTAL PROTEIN, SERUM 6.6 g/dL (6.4-8.2)
[2017-01-24 14:45] LABS: APPEARANCE,URINE Slightly Cloudy (CLEAR); BILIRUBIN,URINE Negative (NEGATIVE); BLOOD, URINE Negative Ery/uL (NEGATIVE); COLOR,URINE Yellow (YELLOW); KETONES,URINE Negative (NEGATIVE); LEUKOCYTE ESTERASE ,URINE Negative (NEGATIVE); NITRITE, URINE Negative (NEGATIVE); PROTEIN,URINE 100 mg/dl (NEGATIVE); UGLUCOSE Negative (NEGATIVE); UROBILINOGEN,URINE 0.2 EU/dL (0.2)
[2017-01-24 15:02] LABS: BACTERIA,URINE Few /HPF (None Seen); FINE GRANULAR CASTS,URINE Few /LPF (None Seen); RBC,URINE 0-2 /HPF (0-2); SQUAMOUS EPITHELIAL CELL,UR Few /HPF (None Seen)
[2017-01-24 15:03] LABS: HYALINE CASTS, URINE Few /LPF (None Seen); MUCUS,URINE Few /LPF (None Seen)
--- NOTE | 2017-01-24 15:14 | NUR ---
RIND DR. ESPOSITO FOR PANEL
--- NOTE | 2017-01-24 15:26 | NUR ---
MARIPOSA GUPTA AT [facility] - DR. DAVIS IS ACCOUNTS RECEIVABLE EXECUTIVE FOR CONSULT
--- NOTE | 2017-01-24 15:38 | NUR ---
YULY Connors PT SON PHONE # [phone]
[2017-01-24 16:00] LABS: ABG BASE EXCESS 5.2 mmol/L; ABG OXYGEN SATURATION 99.3 % (92.0-98.5); ABG PCO2 61.4 mmHg (35.0-45.0); ABG PH 7.336 (7.350-7.450); ABG PO2 570.3 mmHg (75.0-100.0); AaDO2 81.3 mmHg; COHb 0.3 % (0.5-1.5); MetHb 0.6 % (0.0-1.5); O2Hb 98.4 % (94.0-97.0); PEEP,BG 5 cm H2O; SITE, ABG Right Radial; VENT MODE, BG AC 16 400 100% +5; VT, ABG 400 mL
[2017-01-24 16:11] LABS: BAND % (MANUAL) 5 % (0.0-5.0); LYMPHOCYTES % (MANUAL) 5 % (16-48); MONOCYTES % (MANUAL) 9 % (0-11.0); NEUTROPHILS % (MANUAL) 80 (42-76); REACTIVE LYMPHOCYTES 1 % (0-0)
[2017-01-24] MEDS ORDERED: PROPOFOL 100 ML IV PRN (17:00)
[2017-01-24] MEDS: IV NS 0.9% 1,000 ML IV PRN (17:17)
[2017-01-24] MEDS ORDERED: FEE PK DOSING 1 MIN EA MC ONE (17:21)
[2017-01-24] MEDS ORDERED: ACETAMINOPHEN 650 MG/SUPP.RECT RC PRN (17:30)
[2017-01-24] MEDS ORDERED: ALBUTEROL FS 2.5 MG/0.5 ML VIAL.NEB NEB PRN (17:30)
[2017-01-24] MEDS ORDERED: MORPHINE SULFATE INJ 2 MG/ML DISP.SYRIN IV PRN (17:30)
[2017-01-24] MEDS ORDERED: IPRATROPIUM NEB FS 0.5 MG/2.5 ML AMPUL.NEB NEB PRN (17:30)
[2017-01-24] MEDS ORDERED: ENOXAPARIN SODIUM 40 MG/0.4 ML DISP.SYRIN SQ SCH (17:30)
[2017-01-24] MEDS: methylPREDNISolone SOD SUCC 40 MG/ML VIAL IV SCH ×2 (17:39→23:21)
[2017-01-24] MEDS: ENOXAPARIN SODIUM 30 MG/0.3 ML DISP.SYRIN SQ SCH (17:44)
[2017-01-24] MEDS: FENTANYL PF 100MCG/2ML AMPUL IV PRN (17:46)
[2017-01-24 17:50] LABS: ABG BASE EXCESS 1.8 mmol/L; ABG OXYGEN SATURATION 98.3 % (92.0-98.5); ABG PCO2 48.4 mmHg (35.0-45.0); ABG PH 7.372 (7.350-7.450); ABG PO2 154.3 mmHg (75.0-100.0); AaDO2 75.2 mmHg; COHb 0.3 % (0.5-1.5); MetHb 0.8 % (0.0-1.5); O2Hb 97.2 % (94.0-97.0); PEEP,BG 5 cm H2O; SITE, ABG Right Radial; VENT MODE, BG AC 18 450 40% +5; VT, ABG 450 mL
[2017-01-24] MEDS: PIPERACILLIN /TAZOBACTAM 3.375 G in IV D5W 50 ML IV SCH ×2 (17:58→23:21)
[2017-01-24] MEDS: PROPOFOL 100 ML IV PRN (17:58)
--- NOTE | 2017-01-24 18:13 | NUR ---
UNDERWRITING CLERKS SUPERVISOR NOTE Admitted 81 y/o F patient from ER, intubated for COPD exacerbation, sepsis, with WBC 28.2 from unknown source for now. Awaiting cultures. ETT to vent, tolerated settings, no respiratory distress noted at this time. Placed on bed from [facility]. Examined skin, noted with sacral redness and all extremities discoloration. AV pacing 70 on the monitor. PIVs on RFA and LH intact. On Diprivan @ 50mcg, still noted with restless and trying to pull out ETT, placed on CORPORATE AFFAIRS MANAGER restraints and will keep on 50 mcg at this time, with order of pain med, will F.U from pharmacy. S/E by Dr. Isabel, admitting order placed in. S/E by Dr. Sloan, aware for the ABG result, continue same vent settings of AC 18, 450, 40%, +5. With order of CXR and ABG in am. Able to get order to may increase Diprivan to 75 mcg, calm on 50mcg for now, will continue to monitor, Fentanyl given as ordered. Lujan cath intact, noted with clear yellow urine drained to BSD. No order for NGT insertion for now, no any PO or /GT meds ordered for now.
[2017-01-24] MEDS: Z GUARD REMEDY 2 OZ OINT TP SCH (19:03)
[2017-01-24] MEDS: ALBUTEROL FS 2.5 MG/0.5 ML VIAL.NEB NEB SCH (19:22)
[2017-01-24] MEDS: IPRATROPIUM NEB FS 0.5 MG/2.5 ML AMPUL.NEB NEB SCH (19:22)
--- NOTE | 2017-01-24 20:00 | NUR ---
CONCRETE ROD BUSTER DF RECEIVED PT TO ROOM#258 PT INTUBATED SEDATED ON DIPRIVAN @50MCG/MIN IV, TOLERATING CURRENT AC VENT SETTINGS WITH FIO2 OF 35%.PT WITH PPM WITH AV PACING ON MONITOR RATE OF 70BPM. VSS.NAD NOTED.
[2017-01-25] VITALS (39 sets, daily range): BP systolic 97–138; BP diastolic 40–70
[2017-01-25] MEDS: PROPOFOL 100 ML IV PRN ×4 (00:07→22:29)
[2017-01-25] MEDS: VANCOMYCIN 500 MG in IV D5W 100 ML IV SCH ×2 (02:25→13:56)
[2017-01-25 04:35] LABS: BASOPHILS % (AUTO) 0.1 % (0.0-2.0); EOSINOPHILS % (AUTO) 0.2 % (0.0-6.0); HEMATOCRIT 28 % (33-45); HEMOGLOBIN 9.1 g/dL (11.5-14.8); LYMPHOCYTES # (AUTO) 0.6 /CMM (0.8-4.8); LYMPHOCYTES % (AUTO) 6.7 % (20.0-44.0); MEAN CORPUSCULAR HEMOGLOBIN 31 PG (26.0-33.0); MEAN CORPUSCULAR HGB CONC 33 g/dl (31.0-36.0); MEAN CORPUSCULAR VOLUME 94 fL (82-100); MONOCYTES # (AUTO) 0.4 /CMM (0.1-1.30); MONOCYTES % (AUTO) 4.2 % (2.0-12.0); NEUTROPHILS # (AUTO) 8.5 /CMM (1.8-8.9); NEUTROPHILS % (AUTO) 88.8 % (43.0-81.0); PLATELET COUNT (AUTO) 213 /CMM (150-450); RDW COEFFICIENT OF VARIATION 18.2 (11.5-15.0); RED BLOOD CELL COUNT(AUTO) 2.93 MIL/uL (4.0-5.2); WHITE BLOOD COUNT (AUTO) 9.5 K/uL (4.3-11.0)
[2017-01-25 04:47] LABS: CALCIUM, SERUM 8.3 mg/dL (8.5-10.1); CARBON DIOXIDE 27 mmol/L (21-32); CHLORIDE 103 mmol/L (98-107); CREATININE 0.7 mg/dL (0.6-1.3); GLUCOSE 151 mg/dL (74-106); MAGNESIUM 2.3 mg/dL (1.8-2.4); POTASSIUM 3.6 mmol/L (3.5-5.1); SODIUM SERUM 137 mmol/L (136-145); UREA NITROGEN, BLOOD 21 mg/dL (7-18)
[2017-01-25] MEDS: PIPERACILLIN /TAZOBACTAM 3.375 G in IV D5W 50 ML IV SCH ×3 (05:36→17:59)
[2017-01-25] MEDS: methylPREDNISolone SOD SUCC 40 MG/ML VIAL IV SCH ×3 (05:36→17:59)
--- NOTE | 2017-01-25 07:30 | NUR ---
LABS AND X/R R/V'D WITHOUT REPORTABLE VALUES. VSS. AFEBRILE. D/W R.T. ABG PLAN.
[2017-01-25] MEDS: IPRATROPIUM NEB FS 0.5 MG/2.5 ML AMPUL.NEB NEB SCH ×3 (07:41→20:13)
[2017-01-25] MEDS: ALBUTEROL FS 2.5 MG/0.5 ML VIAL.NEB NEB SCH ×3 (07:41→20:13)
--- NOTE | 2017-01-25 08:00 | NUR ---
PROPOFOL GTT DECREASED TO 20 MCG/KG/MIN TO EVAL NEURO. PT AWAKENS, AGITATED, ATTEMPTING TO SELF EXTUBATE. MOVES ALL 4 EXTREMS PURPOSEFULLY. DOES NOT FOLLOW INSTRUCTIONS. FREQ VIGOROUS COUGHING WHICH CAUSES CONTIN. VENT PRESSURE LIMITING. NO VENT WEAN PLAN. PROPOFOL GTT TITRATED BACK UP TO 50 MCG/KG/MIN
[2017-01-25] MEDS: Z GUARD REMEDY 2 OZ OINT TP SCH ×2 (08:41→21:34)
[2017-01-25] MEDS: PANTOPRAZOLE 40 MG VIAL IV SCH (08:41)
[2017-01-25] MEDS: FENTANYL PF 100MCG/2ML AMPUL IV PRN ×2 (08:42→22:36)
[2017-01-25 09:21] LABS: ABG OXYGEN SATURATION 98.5 % (92.0-98.5); ABG PCO2 24.1 mmHg (35.0-45.0); ABG PH 7.611 (7.350-7.450); ABG PO2 189.1 mmHg (75.0-100.0); AaDO2 68.4 mmHg; COHb 0.3 % (0.5-1.5); MetHb 0.8 % (0.0-1.5); O2Hb 97.4 % (94.0-97.0); SITE, ABG Left Radial
[2017-01-25] MEDS: IV NS 0.9% 1,000 ML IV PRN (09:45)
--- NOTE | 2017-01-25 10:00 | NUR ---
VENT RESPIR RATE DECREASED TO 12/MIN BASED ON ABG WHICH SHOWED HYPERVENTILATION. RAMO SALDIVAR AND CATE HERE TO R/V
--- NOTE | 2017-01-25 11:30 | NUR ---
D/W DNP JUAN AND NURS. SUP. CINTHIA THAT PT NEEDS A MIDLINE IV CATH RUE IV SITE IS SLIGHTLY RED AND SWOLLEN-TO BE DONE AT 1400
--- NOTE | 2017-01-25 15:30 | NUR ---
WOUND RX-I DO NOT APPRECIATE TISSUE INJURY-JUST AISLINN ANAL AND SACRAL REDNESS-USUAL RX INCLUDING Z REMEDY. PT IS ON AN ISO FLEX BED. [employer] MATTRESS NOT APPLIED PER RN RICARDO'S POLICY TO ISO FLEX BED. PT ON VENTILATOR WITH ETT AND HAS BREAKTHROUGH AGITATION THEREFORE BENEFITS OF TRANSFERRING TO ANOTHER BED OUTWEIGHED BY RISKS. .
--- NOTE | 2017-01-25 19:30 | NUR ---
DELIVERY RN INITIAL NOTE RECEIVED REPORT FROM JANELLE RN. PT IN BED, INTUBATED AND SEDATED. ETT 7.5, 21 CM, SETTINGS AC 12, TV 450, FIO2 30%, PEEP 5. LUNG SOUNDS CLEAR AT UPPER BASES AND DIMINISHED AT LOWER BASES. ORAL CARE PROVIDED. BOWEL SOUNDS PRESENT. KHOURY INTACT AND DRAINING URINE. PULSES PRESENT. IV PATENT AND INTACT. REPOSITIONED FOR COMFORT. BED IN LOW LOCKED POSITION. WILL CONTINUE TO MONITOR.
[2017-01-25] MEDS: ENOXAPARIN SODIUM 30 MG/0.3 ML DISP.SYRIN SQ SCH (21:34)
[2017-01-26] VITALS (33 sets, daily range): BP systolic 109–172; BP diastolic 42–104
[2017-01-26] MEDS: methylPREDNISolone SOD SUCC 40 MG/ML VIAL IV SCH ×4 (00:02→17:46)
[2017-01-26] MEDS: PIPERACILLIN /TAZOBACTAM 3.375 G in IV D5W 50 ML IV SCH ×4 (00:02→17:46)
[2017-01-26] MEDS: IV NS 0.9% 1,000 ML IV PRN ×2 (00:07→16:50)
[2017-01-26] MEDS: VANCOMYCIN 500 MG in IV D5W 100 ML IV SCH ×2 (01:24→14:49)
[2017-01-26 04:32] LABS: HEMATOCRIT 26 % (33-45); HEMOGLOBIN 8.5 g/dL (11.5-14.8); LYMPHOCYTES # (AUTO) 0.5 /CMM (0.8-4.8); LYMPHOCYTES % (AUTO) 4.8 % (20.0-44.0); MEAN CORPUSCULAR HEMOGLOBIN 31 PG (26.0-33.0); MEAN CORPUSCULAR HGB CONC 33 g/dl (31.0-36.0); MEAN CORPUSCULAR VOLUME 93 fL (82-100); MONOCYTES # (AUTO) 0.5 /CMM (0.1-1.30); MONOCYTES % (AUTO) 4.3 % (2.0-12.0); NEUTROPHILS # (AUTO) 10.3 /CMM (1.8-8.9); NEUTROPHILS % (AUTO) 90.9 % (43.0-81.0); PLATELET COUNT (AUTO) 216 /CMM (150-450); RDW COEFFICIENT OF VARIATION 18.1 (11.5-15.0); RED BLOOD CELL COUNT(AUTO) 2.76 MIL/uL (4.0-5.2); WHITE BLOOD COUNT (AUTO) 11.4 K/uL (4.3-11.0)
[2017-01-26 04:47] LABS: CALCIUM, SERUM 8.1 mg/dL (8.5-10.1); CARBON DIOXIDE 30 mmol/L (21-32); CHLORIDE 106 mmol/L (98-107); CREATININE 0.8 mg/dL (0.6-1.3); GLUCOSE 164 mg/dL (74-106); MAGNESIUM 2.2 mg/dL (1.8-2.4); POTASSIUM 3.1 mmol/L (3.5-5.1); SODIUM SERUM 142 mmol/L (136-145); UREA NITROGEN, BLOOD 16 mg/dL (7-18)
[2017-01-26 05:46] LABS: BAND % (MANUAL) 3 % (0.0-5.0); LYMPHOCYTES % (MANUAL) 1 % (16-48); MONOCYTES % (MANUAL) 3 % (0-11.0); NEUTROPHILS % (MANUAL) 93 (42-76)
[2017-01-26] MEDS: IPRATROPIUM NEB FS 0.5 MG/2.5 ML AMPUL.NEB NEB SCH ×3 (07:46→20:14)
[2017-01-26] MEDS: ALBUTEROL FS 2.5 MG/0.5 ML VIAL.NEB NEB SCH ×3 (07:46→20:14)
--- NOTE | 2017-01-26 07:47 | NUR ---
ICU/RN INITIAL NOTES,AM RECEIVED REPORT FROM NIGHT NURSE. PT INTUBATED, ETT 7.5, 21 CM AT THE LIP, PT ON VENT SETTINGS ORDERED BY MD, NO ACUTE DISTRESS NOTED AT THIS TIME. PT SEDATED ON DIPRIVAN, 50 MCG, WILL TITRATE APPROPRIATE. POSSIBLE WEANING THIS AM, WILL REVIEW CHEST XRAY AND COLLABORATE WITH MD. PT ON TELE, AV PACING. OG TUBE IN PLACE, FEEDING INFUSING ORDERED, TOLERATING WELL, NO ISSUES NOTED. PIV/MIDLINE PATENT AND INTACT, NO S/S INFECTION OR INFILTRATION NOTED. ALL NEEDS NEEDS WILL BE MET, SAFETY MEASURES TAKEN, BED IN LOW POSITION, SIDE RAILS UP, CALL LIGHT WITHIN REACH.
[2017-01-26] MEDS: Z GUARD REMEDY 2 OZ OINT TP SCH ×2 (08:06→20:51)
[2017-01-26] MEDS: PANTOPRAZOLE 40 MG VIAL IV SCH (08:06)
--- NOTE | 2017-01-26 08:55 | NUR ---
ICU/RN: SEDATION VACATION DECREASED DIPRIVAN PER PROTOCOL, PT AT THIS TIME ABLE TO FOLLOW COMMANDS AND MOVE ALL EXTREMITIES. PT BITING DOWN ON TUBE INTERFERING WITH VOLUMES, WILL RESUME AND TITRATE PER PROTOCOL
[2017-01-26] MEDS: PROPOFOL 100 ML IV PRN (10:13)
[2017-01-26] MEDS ORDERED: POTASSIUM CHLORIDE 20 MEQ TAB.PRT.SR PO SCH (11:00)
[2017-01-26] MEDS: Potassium Chloride 10 MEQ in IV D5W 50 ML IV SCH ×4 (12:08→16:49)
--- NOTE | 2017-01-26 13:00 | NUR ---
ICU/RN: PER , WEANING PROCESS STARTED. WEANING OFF SEDATION, WILL GO DOWN PER PROTOCOL.
--- NOTE | 2017-01-26 15:40 | NUR ---
ICU/RN: PT OFF DIPRIVAN PER PROTOCOL. PT OPENS EYES, FOLLOWS COMMANDS. WILL DO ABG ORDERED.
[2017-01-26 15:59] LABS: ABG BASE EXCESS 2.6 mmol/L; ABG OXYGEN SATURATION 97.2 % (92.0-98.5); ABG PCO2 42.1 mmHg (35.0-45.0); ABG PH 7.428 (7.350-7.450); ABG PO2 106.4 mmHg (75.0-100.0); COHb 0.3 % (0.5-1.5); MetHb 0.8 % (0.0-1.5); O2Hb 96.1 % (94.0-97.0); PEEP,BG 5 cm H2O; SITE, ABG Right Radial; VENT MODE, BG CPAP 15
--- NOTE | 2017-01-26 16:10 | NUR ---
ICU/RN: POST ABG RESULTS REVIEWED BY . PT ON VENT WEANING MODE. DR GUPTA ORDERED TO EXTUBATE PATIENT. PATIENT EXTUBATED AND PLACED ON 2L N/C. WILL CONTINUE TO CLOSELY MONITOR.
--- NOTE | 2017-01-26 16:10 | NUR ---
RT POST ABG RESULTS ON VENT WEANING MODE DR GUPTA ORDERED TO EXTUBATE PATIENT. PATIENT EXTUBATED AND PLACED ON 2L N/C.
--- NOTE | 2017-01-26 16:50 | NUR ---
ICU/RN: SOB/DISTRESS NOTED. PER MD ORDER PT PLACED ON BIPAP WITH SETTINGS ORDERED BY MD. WILL CONTINUE TO MONITOR AND ASSESS.
--- NOTE | 2017-01-26 18:37 | NUR ---
ICU/RN ENDING NOTES,AM REPORT WILL BE ENDORSED TO NIGHT NURSE FOR CONTINUATION OF CARE. PT ON BIPAP WITH SETTINGS ORDERED BY MD, NO ACUTE RESPIRATORY DISTRESS NOTED. PT MAINTAINING 02 SAT >90%. PT AV PACING ON TELE. CALLED REGARDING MED. RECON DIDN'T GET CALL BACK WILL ENDORSE TO FOLLOW UP IN AM. IV FLUIDS INFUSING ORDERED. MIDLINE PATENT AND INTACT, NO S/S OF INFECTION OR INFILTRATION NOTED. ALL NEEDS MET. SAFETY MEASURES TAKEN, BED IN LOW POSITION, SIDE RIALS UP, CALL LIGHT WITHIN REACH. WILL CONTINUE CARE.
[2017-01-26] MEDS: FENTANYL PF 100MCG/2ML AMPUL IV PRN (19:26)
--- NOTE | 2017-01-26 19:30 | NUR ---
BODY MECHANIC INITIAL NOTE RECEIVED REPORT FROM KASIE BLACKWELL. PT IN BED, ON BIPAP. PT IS AGITATED, RESTLESS BUT EASILY CONSOLABLE. LUNG SOUNDS RHONCHI. THICK ORAL SECRETIONS NOTED. ORAL CARE PROVIDED. BOWEL SOUNDS PRESENT. KHOURY INTACT AND DRAINING YELLOW URINE. PULSES PRESENT. IV PATENT AND INTACT. BED IN LOW LOCKED POSITION. CALL LIGHT WITHIN REACH. WILL CONTINUE TO MONITOR.
--- NOTE | 2017-01-26 20:30 | NUR ---
BEE RAISER PT SCREAMING FOR WATER. PT REMAINS NPO. ICE CHIPS GIVEN AND OBSERVED REACTION, PT STARTED COUGHING AND SPIT OUT WATER. REINSTRUCTED PATIENT THAT WE CANNOT GIVE HER WATER AT THIS TIME AND WILL RE ASSESS LATER. WILL CONTINUE TO MONITOR.
[2017-01-26] MEDS: ENOXAPARIN SODIUM 30 MG/0.3 ML DISP.SYRIN SQ SCH (20:52)
--- NOTE | 2017-01-26 21:05 | NUR ---
GLOBAL ANALYTICS HEAD PT IS VERY AGITATED. SAYS SHE CANT BREATH, RR 26 SATS 100% ON 4L NC. NO DISTRESS NOTED. CALL MADE TO DR ESPOSITO FOR ORDERS RELATED TO AGITATION .
[2017-01-26] MEDS ORDERED: LORAZEPAM INJ 2 MG/ML VIAL ONE (21:36)
[2017-01-26] MEDS: LORAZEPAM INJ 2 MG/ML VIAL IV PRN (21:37)
--- NOTE | 2017-01-26 22:31 | NUR ---
ACCOUNTING SYSTEMS MANAGER PT PLACED BACK ON BIPAP. PT CONTINUES TO SAY SHE IS SHORT OF BREATH. WILL CONTINUE TO MONITOR.
[2017-01-27] VITALS (55 sets, daily range): BP systolic 102–206; BP diastolic 41–94
[2017-01-27] MEDS: methylPREDNISolone SOD SUCC 40 MG/ML VIAL IV SCH ×5 (00:07→23:12)
[2017-01-27] MEDS: PIPERACILLIN /TAZOBACTAM 3.375 G in IV D5W 50 ML IV SCH ×5 (00:07→23:12)
[2017-01-27] MEDS: FENTANYL PF 100MCG/2ML AMPUL IV PRN (01:07)
[2017-01-27] MEDS: VANCOMYCIN 500 MG in IV D5W 100 ML IV SCH ×2 (02:27→13:48)
[2017-01-27 04:55] LABS: CALCIUM, SERUM 8.3 mg/dL (8.5-10.1); CARBON DIOXIDE 31 mmol/L (21-32); CHLORIDE 105 mmol/L (98-107); CREATININE 0.7 mg/dL (0.6-1.3); GLUCOSE 169 mg/dL (74-106); POTASSIUM 3.4 mmol/L (3.5-5.1); SODIUM SERUM 144 mmol/L (136-145); UREA NITROGEN, BLOOD 15 mg/dL (7-18)
[2017-01-27] MEDS: IV NS 0.9% 1,000 ML IV PRN ×2 (05:51→17:41)
[2017-01-27] MEDS ORDERED: HALOPERIDOL LACTATE INJ 5 MG/ML VIAL ONE (06:14)
[2017-01-27] MEDS: HALOPERIDOL LACTATE INJ 5 MG/ML VIAL IM PRN (06:15)
--- NOTE | 2017-01-27 07:05 | NUR ---
RN INITIAL NOTES RECEIVED PT LETHARGIC. ON BIPAP. SOB NOTED. 02 SAT 88%. BP AND HR ELEVATED. HOB ELEVATED. PT AV PACING ON MONITOR. VAN MIDLINE IN PLACE. NS AT 75ML/HR INFUSING. FC IN PLACE. NO HEMATURIA NOTED. CHUCK RT AT BEDSIDE AWARE. PT SEEN BY DR. ESPOSITO AT 0630, AWARE THAT PT WAS AGITATED AND GIVEN HALDOL ORDERED AT 0615. WILL CLOSELY MONITOR.
[2017-01-27] MEDS: ALBUTEROL FS 2.5 MG/0.5 ML VIAL.NEB NEB SCH ×3 (07:06→19:27)
[2017-01-27] MEDS: IPRATROPIUM NEB FS 0.5 MG/2.5 ML AMPUL.NEB NEB SCH ×3 (07:06→19:27)
[2017-01-27] MEDS: LEVOTHYROXINE SODIUM 50 MCG TABLET PO SCH (07:30)
[2017-01-27] MEDS ORDERED: PANTOPRAZOLE 40 MG TABLET.DR PO SCH (07:30)
[2017-01-27 07:58] LABS: ABG BASE EXCESS -0.1 mmol/L; ABG PCO2 91.5 mmHg (35.0-45.0); ABG PH 7.146 (7.350-7.450); ABG PO2 77.2 mmHg (75.0-100.0); AaDO2 102.8 mmHg; COHb 0.3 % (0.5-1.5); MetHb 0.7 % (0.0-1.5); O2Hb 90.1 % (94.0-97.0); SITE, ABG Right Radial
--- NOTE | 2017-01-27 08:00 | NUR ---
RN NOTES CALLED DR. ESPOSITO REGARDING MEDICATIONS. PT LETHARGIC. ON BIPAP. UNABLE TO FOLLOW COMMANDS. HAS ORDER FOR SWALLOW EVAL. PER MD, DO SWALLOW EVAL FIRST. ALSO ORDERED HYDRALAZINE PRN FOR SPB>160. NOTED AND CARRIED OUT.
--- NOTE | 2017-01-27 08:03 | NUR ---
RN NOTES ABG RESULT RELAYED TO DR. GUPTA. AWAITING FOR CALL BACK. PT REMAINS ON BIPAP. 02 SAT 90%. WILL CLOSELY MONITOR. Addendum: 01/27/17 at 0812 by CATHERINE JAEGER RN DR. GUPTA CALLED BACK REGARDING ABG RESULT. ORDERED CHANGE BIPAP SETTINGS TO 18/5, RR 14. ABG IN 1HR. NOTED AND CARRIED OUT. WILL CLOSELY MONITOR.
[2017-01-27] MEDS: Z GUARD REMEDY 2 OZ OINT TP SCH ×2 (08:19→20:52)
[2017-01-27] MEDS: PANTOPRAZOLE 40 MG VIAL IV SCH (08:19)
[2017-01-27] MEDS: hydrALAZINE HCL IV 20 MG VIAL IV PRN (08:24)
[2017-01-27] MEDS: DILTIAZEM HCL CD 120 MG PO SCH (08:52)
[2017-01-27] MEDS: PREGABALIN 100 MG CAPSULE PO SCH ×3 (08:52→17:06)
[2017-01-27] MEDS: ACIDOPHILUS/BULGARICUS 1 EACH TAB.CHEW PO SCH ×2 (08:52→17:06)
[2017-01-27] MEDS: CARVEDILOL 6.25 MG TABLET PO SCH ×2 (08:52→17:06)
[2017-01-27] MEDS: ASPIRIN 81 MG TAB.CHEW PO SCH (08:52)
--- NOTE | 2017-01-27 09:00 | NUR ---
RN NOTES SEEN AND EXAMINED BY DR. GUPTA. AWARE OF CURRENT ABG RESULT. PT ON BIPAP. LETHARGIC. MD ORDERED INTUBATION. 0910 PT INTUBATED. STAT CXR ORDERED. OG PLACED. NO RESPIRATORY DISTRESS NOTED. NO SOB NOTED. AWAITING CXR RESULT. WILL CLOSELY MONITOR.
--- NOTE | 2017-01-27 09:15 | NUR ---
PT. 81 Y OLD FEMALE ASSIST ORALLY INTUBATED @[address] TURPIN (ER DR,.) 7.5@ 21CM LIP LINE. GOOD COLOR EXCHANGE (CAPNOGRAPHY), ALARMS ARE SET AND FUNCTIONAL, EQUAL CHEST RISE NOTED PT. DARRICK. CURRENT SETTINGS. AND AMBU BAG REMAIN AT THE BEDSIDE. AND CONTINUE FOR MONITOR AND BAG REPEAT IN 1 HR.
[2017-01-27] MEDS ORDERED: PROPOFOL 100 ML IV PRN (09:30)
[2017-01-27] MEDS: POTASSIUM CL. PREMIX PERIPHER. 50 ML IV SCH ×2 (09:50→11:11)
[2017-01-27] MEDS ORDERED: SUCCINYLCHOLINE CHLORIDE 20 MG/ML VIAL IV ONE (10:06)
[2017-01-27] MEDS ORDERED: ETOMIDATE 2 MG/ML VIAL IV ONE (10:06)
[2017-01-27 10:38] LABS: ABG BASE EXCESS 1.6 mmol/L; ABG OXYGEN SATURATION 99.4 % (92.0-98.5); ABG PCO2 41.7 mmHg (35.0-45.0); ABG PH 7.417 (7.350-7.450); ABG PO2 593.5 mmHg (75.0-100.0); AaDO2 77.8 mmHg; COHb 0.4 % (0.5-1.5); MetHb 0.4 % (0.0-1.5); O2Hb 98.6 % (94.0-97.0); SITE, ABG Right Radial; VENT MODE, BG AC 18. 450. 100%+5; VT, ABG 450 mL
--- NOTE | 2017-01-27 10:40 | NUR ---
RN NOTES DR. GUPTA AWARE OF ABG RESULT 1HR POST INTUBATION. NO RESPIRATORY DISTRESS NOTED. NO SOB NOTED. HOB ELEVATED. ORDERED TO DECREASE AC TO 12 FI02 TO 40%. WILL CLOSELY MONITOR.
[2017-01-27] MEDS: PROPOFOL 100 ML IV PRN ×2 (12:20→20:51)
--- NOTE | 2017-01-27 12:20 | NUR ---
RN NOTES PT AWAKE AND AGITATED. UNABLE TO FOLLOW COMMANDS. TRYING TO PULL OUT ETT/OG TUBE. PT ON BILATERAL WRIST RESTRAINTS. NO CIRCULATORY IMPAIRMENT NOTED. DIPRIVAN STARTED. WILL TITRATE ACCORDINGLY. WILL MONITOR.
--- NOTE | 2017-01-27 18:45 | NUR ---
RN CLOSING NOTES PT INTUBATED, ON VENT. NO RESPIRATORY DISTRESS NOTED. NO SIGNS OF PAIN NOTED. PT SEDATED. ON DIPRIVAN, TITRATED ACCORDINGLY. OG IN PLACE. MIDLINE IN PLACE. TOLERATING IVF WELL. FC IN PLACE. ADEQUATE OUTPUT NOTED. KEPT CLEAN AND DRY. REPOSITIONED Q2. BLE ELEVATED. PT COMFORTABLE. WILL MONITOR.
--- NOTE | 2017-01-27 19:51 | NUR ---
RN:ICU: PT RECEIVED IN BED REINTUBATED THIS MORNING DUE TO RESPIRATORY DISTRESS. PT IS RESTLESS AT TIMES REQUIRING DIPRIVAN AND BILATERAL SOFT WRIST RESTRAINTS. ASPIRATION PRECAUTIONS IN PLACE. WILL CONTINUE TO MONITOR CLOSELY.
--- NOTE | 2017-01-27 19:58 | NUR ---
PT RECEIVED INTUBATED WITH 7.5 ETT SECURED AT 21CM AT THE LIP. NO RESP DISTRESS NOTED. PT TOLERATING VENT SETTINGS. SX'D FOR SML AMT OF WHITE SECRETIONS. VENT ALARMS SET AND AUDIBLE. AMBU BAG AT BEDSIDE. WILL CONTINUE TO MONITOR. Addendum: 01/27/17 at 1959 by IRENE REYES RT Amended: Links added.
[2017-01-27] MEDS: ENOXAPARIN SODIUM 30 MG/0.3 ML DISP.SYRIN SQ SCH (20:52)
[2017-01-27] MEDS: FAMOTIDINE (20 MG) 20 MG TABLET PO SCH (21:04)
[2017-01-27] MEDS: DONEPEZIL 5 MG TABLET PO SCH (21:04)
[2017-01-27] MEDS: TRAZODONE 50 MG TABLET PO SCH (21:04)
[2017-01-28] VITALS (40 sets, daily range): BP systolic 125–162; BP diastolic 44–74
[2017-01-28] MEDS: VANCOMYCIN 500 MG in IV D5W 100 ML IV SCH ×2 (01:10→16:12)
[2017-01-28] MEDS: PROPOFOL 100 ML IV PRN ×3 (03:22→18:06)
[2017-01-28 04:47] LABS: HEMATOCRIT 24 % (33-45); HEMOGLOBIN 7.9 g/dL (11.5-14.8); LYMPHOCYTES # (AUTO) 0.2 /CMM (0.8-4.8); LYMPHOCYTES % (AUTO) 3.2 % (20.0-44.0); MEAN CORPUSCULAR HEMOGLOBIN 31 PG (26.0-33.0); MEAN CORPUSCULAR HGB CONC 32 g/dl (31.0-36.0); MEAN CORPUSCULAR VOLUME 95 fL (82-100); MONOCYTES # (AUTO) 0.3 /CMM (0.1-1.30); MONOCYTES % (AUTO) 3.3 % (2.0-12.0); NEUTROPHILS # (AUTO) 7.2 /CMM (1.8-8.9); NEUTROPHILS % (AUTO) 93.5 % (43.0-81.0); PLATELET COUNT (AUTO) 163 /CMM (150-450); RDW COEFFICIENT OF VARIATION 18.3 (11.5-15.0); RED BLOOD CELL COUNT(AUTO) 2.57 MIL/uL (4.0-5.2); WHITE BLOOD COUNT (AUTO) 7.7 K/uL (4.3-11.0)
[2017-01-28 05:01] LABS: CALCIUM, SERUM 7.7 mg/dL (8.5-10.1); CARBON DIOXIDE 32 mmol/L (21-32); CHLORIDE 108 mmol/L (98-107); CREATININE 0.7 mg/dL (0.6-1.3); GLUCOSE 151 mg/dL (74-106); MAGNESIUM 2.1 mg/dL (1.8-2.4); POTASSIUM 3.1 mmol/L (3.5-5.1); SODIUM SERUM 144 mmol/L (136-145); UREA NITROGEN, BLOOD 23 mg/dL (7-18)
[2017-01-28] MEDS: methylPREDNISolone SOD SUCC 40 MG/ML VIAL IV SCH ×4 (05:32→23:57)
[2017-01-28] MEDS: PIPERACILLIN /TAZOBACTAM 3.375 G in IV D5W 50 ML IV SCH ×4 (05:32→23:58)
[2017-01-28] MEDS: IV NS 0.9% 1,000 ML IV PRN ×2 (05:33→17:18)
--- NOTE | 2017-01-28 07:10 | NUR ---
RN INITIAL NOTES RECEIVED PT INTUBATED. ON MECH VENT. NO RESPIRATORY DISTRESS NOTED. NO SIGNS OF PAIN NOTED. PT SEDATED. ON DIPRIVAN AT 50MCG/KG/MIN. OG IN PLACE. VAN MIDLINE IN PLACE. IVF INFUSING. FC IN PLACE. NO HEMATURIA NOTED. BILATERAL WRIST RESTRAINTS ON. NO CIRCULATORY DISTRESS NOTED. BLE ELEVATED. WILL MONITOR.
[2017-01-28] MEDS: ALBUTEROL FS 2.5 MG/0.5 ML VIAL.NEB NEB SCH ×3 (07:55→19:46)
[2017-01-28] MEDS: IPRATROPIUM NEB FS 0.5 MG/2.5 ML AMPUL.NEB NEB SCH ×3 (07:55→19:47)
--- NOTE | 2017-01-28 07:56 | NUR ---
RT PT RECEIVED ORALLY INTUBATED WITH A 7.5 ETT SECURED 21CM AT THE LIP LINE. PT IS ON THE VENT WITH NOTED SETTINGS. VENT ALARMS ARE SET AND AUDIBLE WITH BVM BY BEDSIDE. CONSUMER MARKETING ANALYST CUFF PRESSURE NOTED. VENT IS PLUGGED INTO RED OUTLET. SX SMALL MEJIA THIN/THICK SECRETIONS. NO RESPIRATORY DISTRESS NOTED AT THIS TIME, WILL CONTINUE TO MONITOR. Addendum: 01/28/17 at 0958 by ROCK YOUSIF RT Amended: Links added.
[2017-01-28] MEDS: PANTOPRAZOLE 40 MG VIAL IV SCH (08:09)
[2017-01-28] MEDS: DILTIAZEM HCL CD 120 MG PO SCH (08:10)
[2017-01-28] MEDS: Z GUARD REMEDY 2 OZ OINT TP SCH ×2 (08:10→21:28)
[2017-01-28] MEDS: ASPIRIN 81 MG TAB.CHEW PO SCH (08:10)
[2017-01-28] MEDS: PREGABALIN 100 MG CAPSULE PO SCH ×3 (08:10→16:13)
[2017-01-28] MEDS: ACIDOPHILUS/BULGARICUS 1 EACH TAB.CHEW PO SCH ×2 (08:10→16:13)
[2017-01-28] MEDS: LEVOTHYROXINE SODIUM 50 MCG TABLET PO SCH (08:10)
[2017-01-28] MEDS: CARVEDILOL 6.25 MG TABLET PO SCH ×2 (08:10→16:13)
--- NOTE | 2017-01-28 09:00 | NUR ---
RN NOTES PT ON SEDATION VACATION. PT OPENS EYES. ABLE TO FOLLOW SIMPLE COMMAND. NO RESPIRATORY DISTRESS NOTED. NO SOB NOTED. NO SIGNS OF PAIN NOTED. VS STABLE. WILL CLOSELY MONITOR
[2017-01-28 09:05] LABS: ABG BASE EXCESS 3.5 mmol/L; ABG OXYGEN SATURATION 98.4 % (92.0-98.5); ABG PCO2 43.5 mmHg (35.0-45.0); ABG PH 7.429 (7.350-7.450); ABG PO2 151.6 mmHg (75.0-100.0); AaDO2 83.6 mmHg; COHb 0.2 % (0.5-1.5); MetHb 0.7 % (0.0-1.5); O2Hb 97.5 % (94.0-97.0); PEEP,BG 5 cm H2O; SITE, ABG Right Radial; VT, ABG 450 mL
--- NOTE | 2017-01-28 09:30 | NUR ---
RN NOTES SEEN AND EXAMINED BY DR. GUPTA. PT ON SEDATION VACATION. PT ABLE TO OPEN EYES UPON VERBAL AND TACTILE STIMULI. ABLE TO FOLLOW SIMPLE COMMANDS. NO RESPIRATORY DISTRESS NOTED. NO SOB NOTED. NO SIGNS OF PAIN NOTED. WILL CLOSELY MONITOR
[2017-01-28] MEDS ORDERED: POTASSIUM CL. PREMIX PERIPHER. 50 ML IV SCH (10:30)
--- NOTE | 2017-01-28 11:08 | NUR ---
RN NOTES DIPRIVAN RESTARTED. PT AGITATED. TRYING TO PULL OUT ETT/OG TUBE. PT ON BILATERAL WRIST RESTRAINT. WILL CLOSELY MONITOR. WILL TITRATE DIPRIVAN ACCORDINGLY.
[2017-01-28] MEDS: Potassium Chloride 10 MEQ in IV D5W 50 ML IV SCH ×4 (11:59→14:59)
--- NOTE | 2017-01-28 15:30 | NUR ---
RN NOTES SEEN AND EXAMINED BY DR. IDALMIS TALAVERA. PT REMAINS INTUBATED. NO RESPIRATORY DISTRESS NOTED. NO SOB NOTED. NO SIGNS OF PAIN NOTED. PT SEDATED. PT ABLE TO OPEN EYES AND FOLLOW SIMPLE COMMANDS DURING SEDATION VACATION. AWARE OF CURRENT LAB VALUES: WBC 7.7, HGN 7.9, HCT 24, PLATELET 163. POTASSIUM 3.1, REPLACED. MADE AWARE WEANING TRIALS IN AM. NO ORDER MADE. WILL MONITOR.
--- NOTE | 2017-01-28 18:41 | NUR ---
RN CLOSING NOTES PT STABLE. NO SIGNIFICANT CHANGE NOTED. REMAINS INTUBATED AND SEDATED. ON VENT. NO RESPIRATORY DISTRESS NOTED. NO SIGNS OF PAIN NOTED. MIDLINE IN PLACE. FC IN PLACE. KEPT CLEAN AND DRY. REPOSITIONED Q2. KEPT BLE ELEVATED. WILL ENDORSE FOR CONTINUITY OF CARE.
[2017-01-28] MEDS: DONEPEZIL 5 MG TABLET PO SCH (21:28)
[2017-01-28] MEDS: TRAZODONE 50 MG TABLET PO SCH (21:28)
[2017-01-28] MEDS: FAMOTIDINE (20 MG) 20 MG TABLET PO SCH (21:28)
[2017-01-28] MEDS: ENOXAPARIN SODIUM 30 MG/0.3 ML DISP.SYRIN SQ SCH (21:30)
[2017-01-29] VITALS (46 sets, daily range): BP systolic 120–222; BP diastolic 47–91
[2017-01-29] MEDS: PROPOFOL 100 ML IV PRN ×2 (01:28→08:39)
[2017-01-29] MEDS: VANCOMYCIN 500 MG in IV D5W 100 ML IV SCH (02:30)
[2017-01-29 05:00] LABS: HEMATOCRIT 26 % (33-45); HEMOGLOBIN 8.4 g/dL (11.5-14.8); LYMPHOCYTES # (AUTO) 0.3 /CMM (0.8-4.8); LYMPHOCYTES % (AUTO) 3.7 % (20.0-44.0); MEAN CORPUSCULAR HEMOGLOBIN 30 PG (26.0-33.0); MEAN CORPUSCULAR HGB CONC 32 g/dl (31.0-36.0); MEAN CORPUSCULAR VOLUME 94 fL (82-100); MONOCYTES # (AUTO) 0.1 /CMM (0.1-1.30); MONOCYTES % (AUTO) 1.5 % (2.0-12.0); NEUTROPHILS # (AUTO) 6.6 /CMM (1.8-8.9); NEUTROPHILS % (AUTO) 94.8 % (43.0-81.0); PLATELET COUNT (AUTO) 150 /CMM (150-450); RDW COEFFICIENT OF VARIATION 17.5 (11.5-15.0); RED BLOOD CELL COUNT(AUTO) 2.78 MIL/uL (4.0-5.2)
[2017-01-29 05:27] LABS: CALCIUM, SERUM 7.8 mg/dL (8.5-10.1); CARBON DIOXIDE 29 mmol/L (21-32); CHLORIDE 105 mmol/L (98-107); CREATININE 0.6 mg/dL (0.6-1.3); GLUCOSE 167 mg/dL (74-106); PHOSPHORUS 2.4 mg/dL (2.5-4.9); POTASSIUM 3.2 mmol/L (3.5-5.1); SODIUM SERUM 140 mmol/L (136-145); UREA NITROGEN, BLOOD 20 mg/dL (7-18)
[2017-01-29] MEDS: PIPERACILLIN /TAZOBACTAM 3.375 G in IV D5W 50 ML IV SCH ×2 (05:41→11:58)
[2017-01-29] MEDS: hydrALAZINE HCL IV 20 MG VIAL IV PRN ×2 (05:41→20:41)
[2017-01-29] MEDS: methylPREDNISolone SOD SUCC 40 MG/ML VIAL IV SCH ×3 (05:41→17:43)
--- NOTE | 2017-01-29 06:45 | NUR ---
RN CLOSING NOTE PT REMAINS IN NO ACUTE DISTRESS IN BED. PT DID NOT HAVE ANY SIGNIFICANT CHANGE IN CONDITION DURING SHIFT. PT TOLERATING VENT SETTING WELL. PT TOLERATING DIPRIVAN @ 50MCG/KG/MIN. ALL NEEDS MET ALL ORDERS CARRIED OUT. WILL ENDORSE CARE TO AM RN FOR CONTINUITY OF CARE.
[2017-01-29] MEDS: IPRATROPIUM NEB FS 0.5 MG/2.5 ML AMPUL.NEB NEB SCH ×3 (07:41→19:24)
[2017-01-29] MEDS: ALBUTEROL FS 2.5 MG/0.5 ML VIAL.NEB NEB SCH ×3 (07:42→19:24)
[2017-01-29] MEDS: LEVOTHYROXINE SODIUM 50 MCG TABLET PO SCH (07:46)
[2017-01-29] MEDS ORDERED: DC PROPOFOL WHEN EXTUBATED XX PRN (08:00)
--- NOTE | 2017-01-29 08:00 | NUR ---
PATIENT RECEIVED ORALLY INTUBATED TO VENT-SEDATED ON DIPRIVAN DRIP AT 50 MCG/KG/MIN-AROUSABLE TO PAIN STIMULI. VITAL SIGNS STABLE ON MONITOR. AFEBRILE.
[2017-01-29] MEDS: PANTOPRAZOLE 40 MG VIAL IV SCH (08:39)
[2017-01-29] MEDS: ASPIRIN 81 MG TAB.CHEW PO SCH (08:39)
[2017-01-29] MEDS: CARVEDILOL 6.25 MG TABLET PO SCH ×2 (08:40→16:37)
[2017-01-29] MEDS: ACIDOPHILUS/BULGARICUS 1 EACH TAB.CHEW PO SCH ×2 (08:40→16:37)
[2017-01-29] MEDS: Z GUARD REMEDY 2 OZ OINT TP SCH ×2 (08:41→21:01)
[2017-01-29] MEDS: DILTIAZEM HCL CD 120 MG PO SCH (08:41)
--- NOTE | 2017-01-29 09:00 | NUR ---
WEANING OFF DIPRIVAN FOR VENT WEANING. EASILY AROUSABLE TO NAME-FOLLOWS SOME SIMPLE COMMANDS. SEEN AND EXAMINED BY DR. GUPTA. VENT SETTINGS CHANGED TO CPAP, PS 12, PEEP 5 BY RT. CONTINUE TO MONITOR CLOSELY.
[2017-01-29 10:58] LABS: ABG BASE EXCESS 3.2 mmol/L; ABG OXYGEN SATURATION 97.7 % (92.0-98.5); ABG PCO2 42.5 mmHg (35.0-45.0); ABG PH 7.433 (7.350-7.450); ABG PO2 125.7 mmHg (75.0-100.0); AaDO2 74.4 mmHg; COHb 0.3 % (0.5-1.5); MetHb 0.9 % (0.0-1.5); O2Hb 96.5 % (94.0-97.0); PEEP,BG 5 cm H2O; SITE, ABG Right Radial
--- NOTE | 2017-01-29 11:20 | NUR ---
ABG RESULTS SEEN BY DR. GUPTA. OK FOR EXTUBATION-DONE BY RT. PLACED ON 02 4L N/C. KEPT HOB ELEVATED. ENCOURAGED DEEP BREATHING AND COUGHING EXERCISES.
--- NOTE | 2017-01-29 11:25 | NUR ---
RT NOTE PT EXTUBATED PER MD ORDER. PT AWAKE AND ALERT. NO STRIDOR HEARD UPON AUSCULTATION. BILATERAL CHEST RISE NOTED. PT PLACED ON 4L NC. SP02 99%. Addendum: 01/29/17 at 1135 by JENNIFER DUNHAM RT Amended: Links added.
[2017-01-29] MEDS: IV NS 0.9% 1,000 ML IV PRN (11:39)
[2017-01-29] MEDS: POTASSIUM CHLORIDE 20 MEQ TAB.PRT.SR PO SCH ×2 (11:50→13:14)
[2017-01-29] MEDS ORDERED: POTASSIUM CHLORIDE 20 MEQ TAB.PRT.SR PO ONE (13:00)
--- NOTE | 2017-01-29 13:00 | NUR ---
PATIENT RESPIRATIONS UNLABORED . NO SOB NOTED SPO2 REMAINS >97% ON 3L N/C. SEEN BY DR. ESPOSITO- MAY START ON FULL LIQUID DIET PER MD.
[2017-01-29] MEDS: PREGABALIN 100 MG CAPSULE PO SCH ×3 (13:16→17:43)
--- NOTE | 2017-01-29 14:00 | NUR ---
PATIENT SON AT BEDSIDE. UPDATED WITH PATIENT CONDITION.
--- NOTE | 2017-01-29 15:35 | NUR ---
PATIENT NOTED WITH INCREASED WHEEZING, DECREASED SPO2 AT 84%. HHN GIVEN BY RT. DR. GUPTA NOTIFIED.
--- NOTE | 2017-01-29 15:45 | NUR ---
G POST HHN PER .
[2017-01-29 15:58] LABS: ABG OXYGEN SATURATION 94.9 % (92.0-98.5); ABG PCO2 56.4 mmHg (35.0-45.0); ABG PH 7.302 (7.350-7.450); ABG PO2 85.4 mmHg (75.0-100.0); AaDO2 62.2 mmHg; COHb 0.3 % (0.5-1.5); MetHb 0.7 % (0.0-1.5); SITE, ABG Right Radial; VENT MODE, BG NC 4L POST TX
[2017-01-29] MEDS ORDERED: NEUTRA PHOS 1 POWD.PACKET PO ONE (16:00)
--- NOTE | 2017-01-29 16:00 | NUR ---
PATIENT REMAINS TACHYPNEIC 30'S, TACHYCARDIC 120'S. SBP>200. PLACED ON RESCUE BIPAP PER DR. GUPTA ORDERS. 01/27-RATE 16 AT 30%.
--- NOTE | 2017-01-29 18:15 | NUR ---
REMAINS ON BIPAP-ABG IN AM. PATIENT CALMER. HR 70'S. SBP>140. SPO2-98%. FOLLOWS INSTRUCTIONS. KEPT HOB ELEVATED.
--- NOTE | 2017-01-29 20:09 | NUR ---
received pt from day shift, a/o x3, AV pacing, s/p extubation, on bipap fi02 30%, sat well, lungs congested, L arm edema, f/c OK output, v/s stable, no pain, pt turned and repositioned.
[2017-01-29] MEDS: FAMOTIDINE (20 MG) 20 MG TABLET PO SCH (21:01)
[2017-01-29] MEDS: DONEPEZIL 5 MG TABLET PO SCH (21:01)
[2017-01-29] MEDS: TRAZODONE 50 MG TABLET PO SCH (21:01)
[2017-01-29] MEDS: ENOXAPARIN SODIUM 30 MG/0.3 ML DISP.SYRIN SQ SCH (21:02)
[2017-01-29] MEDS: LORAZEPAM INJ 2 MG/ML VIAL IV PRN (21:09)
[2017-01-30] VITALS (49 sets, daily range): BP systolic 115–201; BP diastolic 52–98
[2017-01-30] MEDS: methylPREDNISolone SOD SUCC 40 MG/ML VIAL IV SCH ×5 (00:11→23:18)
--- NOTE | 2017-01-30 00:22 | NUR ---
pt is resting in the bed, v/s stable, no pain, pt turned and repositioned q2hrs.
--- NOTE | 2017-01-30 04:17 | NUR ---
pt is resting in the bed, no acute distress overnight, on bipap, sat well, v/s stable, no pain, pt cleaned, changed and repositioned q2hrs.
[2017-01-30] MEDS: IV NS 0.9% 1,000 ML IV PRN ×2 (04:19→14:40)
[2017-01-30 05:31] LABS: CALCIUM, SERUM 8.2 mg/dL (8.5-10.1); CARBON DIOXIDE 29 mmol/L (21-32); CHLORIDE 110 mmol/L (98-107); CREATININE 0.5 mg/dL (0.6-1.3); GLUCOSE 135 mg/dL (74-106); PHOSPHORUS 2.6 mg/dL (2.5-4.9); POTASSIUM 3.5 mmol/L (3.5-5.1); SODIUM SERUM 145 mmol/L (136-145); UREA NITROGEN, BLOOD 22 mg/dL (7-18)
--- NOTE | 2017-01-30 08:00 | NUR ---
VENDOR ANALYST: pt.is on Bipap, reactive by touch, but very drowsy, poor concentration, unable to follow commands well, no any pain, got 2 doses of Ativan over night d/t agitation, high BP per report, SR, O2 sat. WNL, will encourage to keep up awake activity
[2017-01-30] MEDS: hydrALAZINE HCL IV 20 MG VIAL IV PRN ×3 (08:05→23:18)
[2017-01-30] MEDS: LEVOTHYROXINE SODIUM 50 MCG TABLET PO SCH (08:05)
[2017-01-30] MEDS: ALBUTEROL FS 2.5 MG/0.5 ML VIAL.NEB NEB SCH ×4 (08:08→19:45)
[2017-01-30] MEDS: IPRATROPIUM NEB FS 0.5 MG/2.5 ML AMPUL.NEB NEB SCH ×4 (08:08→19:45)
--- NOTE | 2017-01-30 08:30 | NUR ---
MONTESSORI TEACHER: SBP 171-172, Hydralazine 10mg IV was given
--- NOTE | 2017-01-30 09:00 | NUR ---
REGIONAL SALES ENGINEER: updated with pt.current condition, VS, see new orders
[2017-01-30] MEDS: PREGABALIN 100 MG CAPSULE PO SCH ×3 (09:45→16:27)
[2017-01-30] MEDS: ACIDOPHILUS/BULGARICUS 1 EACH TAB.CHEW PO SCH ×2 (09:45→16:27)
[2017-01-30] MEDS: DILTIAZEM HCL CD 120 MG PO SCH (09:45)
[2017-01-30] MEDS: PANTOPRAZOLE 40 MG VIAL IV SCH (09:45)
--- NOTE | 2017-01-30 09:45 | NUR ---
TELEVISION INSPECTOR: pt.is more awake, no c/o now, no pain, A/Ox2, can follow commands, SR, O2 sat. WNL, placed on n/cO2 by RT, resp.Tx given
[2017-01-30] MEDS: CARVEDILOL 6.25 MG TABLET PO SCH ×2 (09:46→16:27)
[2017-01-30] MEDS: Z GUARD REMEDY 2 OZ OINT TP SCH ×2 (09:46→20:45)
[2017-01-30] MEDS: ASPIRIN 81 MG TAB.CHEW PO SCH (09:48)
--- NOTE | 2017-01-30 11:00 | NUR ---
SUPERVISOR CYTOGENETIC LABORATORY: ABG on 2L n/c, pH 7.43, O2 77, CO2 37, pt.is awake, no SOB, no any pain
[2017-01-30 11:11] LABS: ABG BASE EXCESS 0.4 mmol/L; ABG PCO2 37.9 mmHg (35.0-45.0); ABG PO2 77.5 mmHg (75.0-100.0); AaDO2 77.4 mmHg; COHb 0.3 % (0.5-1.5); MetHb 0.9 % (0.0-1.5); O2Hb 93.9 % (94.0-97.0); SITE, ABG Right Radial
--- NOTE | 2017-01-30 12:45 | NUR ---
DIGITAL IMAGING SPECIALIST: is in room, updated with pt.status, ABG, VS, O2 sat., ordered: change albuterol/atrovent resp.Tx from q6h to q4h
--- NOTE | 2017-01-30 14:30 | NUR ---
SYSTEM ADMIN: pt.is awake, needy, no any pain, got resp.Tx, feels better, AV pacing on station monitor, HR 70-80, SBP below 160, O2 sat. over 94%, on 2 L n/c
--- NOTE | 2017-01-30 17:37 | NUR ---
KNIFE CUTTER: pt.is A/Ox2, no c/o now, no pain, AV pacing, SBP below 160, O2 sat. over 94%, pt.son is in room, notified re pt.VS, neuro status, orders, labs, progress, POC
[2017-01-30] MEDS: ENOXAPARIN SODIUM 30 MG/0.3 ML DISP.SYRIN SQ SCH (20:46)
[2017-01-30] MEDS: DONEPEZIL 5 MG TABLET PO SCH (20:47)
[2017-01-30] MEDS: HALOPERIDOL LACTATE INJ 5 MG/ML VIAL IM PRN (20:47)
[2017-01-30] MEDS: FAMOTIDINE (20 MG) 20 MG TABLET PO SCH (20:53)
--- NOTE | 2017-01-30 21:00 | NUR ---
HYDRO EXCAVATION OPERATOR - PT. IS AGGRESSIVE, CONFUSED & SAYS MEAN WORDS TO STAFF. PT. WAS ADM. A COMPLETE BEDBATH DUE TO [employer]. ORAL,AISLINN & SKIN CARE ADM. PT.WAS MUCH HAPPIER AFTER BEDBATH. PT. IS ON O2/2L/NC & HAS RHONCHI/WHEEZES AUSC. O2 SATS ARE WNL. LUE MIDLINE-DL HAS ALL PORTS PATENT TO FLUSH & 0.9%NS INFUSING AT 75CC/HR VIA MOSQUEDA PUMP. ALL PULSES PALPABLE X 4 EXT. AFEBRILE. HALDOL ONE MG/IM ADM. TO RT. BUTTOCKS. KHOURY CATH TO GRAVITY. LEFT C/W PACER. PT. IS ALTERNATING BETWEEN AV PACING & V-PACING. SBP'S ARE LABILE IN THE 160'S. CONT.POC.
[2017-01-31] VITALS (38 sets, daily range): BP systolic 134–187; BP diastolic 46–127
--- NOTE | 2017-01-31 | NUR ---
LAN/WAN ENGINEER - PT. WAS ADM. HYDRALAZINE 10MG IVP FOR SBP'S IN THE 180'S. NO S/S OF DISTRESS/DISCOMFORT. CONT. POC.
[2017-01-31] MEDS: HALOPERIDOL LACTATE INJ 5 MG/ML VIAL IM PRN (03:39)
[2017-01-31] MEDS: IV NS 0.9% 1,000 ML IV PRN (03:39)
--- NOTE | 2017-01-31 04:00 | NUR ---
CROWN ASSEMBLY MACHINE SET UP MECHANIC - PT. DOZES OFF INTERMITTENTLY. NO S/S OF DISTRESS, BUT PT. YELLS ALOUD FOR RN TO COME IN ROOM LITERALLY EVERY 5-10 MINUTES. PT. IS FORGETFUL THAT RN/RT WAS AT BS A FEW MINUTES BEFORE & CALLS STAFF "LIARS" AMONGST OTHER NAMES. PT. IS REORIENTED FREQUENTLY. CONT. POC. HALDOL ONE MG - IM ADM. FOR COMFORT. CONT. POC.
[2017-01-31] MEDS: methylPREDNISolone SOD SUCC 40 MG/ML VIAL IV SCH ×4 (05:37→23:55)
[2017-01-31] MEDS: hydrALAZINE HCL IV 20 MG VIAL IV PRN ×4 (05:37→22:04)
--- NOTE | 2017-01-31 06:00 | NUR ---
PRODUCT SCIENTIST - PT'S SBP'S ARE ELEVATED IN THE 170'S-180'S. PT'S SBP'S CAME DOWN INTO THE 150'S-160'S W/LAST DOSE OF HYDRAL - AZINE. ANOTHER 10MG SLOW IVP OF HYDRALAZINE ADM. FOR PRESSURES. CONT.POC.
--- NOTE | 2017-01-31 07:50 | NUR ---
CAT SKINNER: pt.is A/Ox2, weak, rest now, got Haldol x2 over night, can follow simple commands, no c/o now, no pain, SR, SBP over 160, Hydralazine 10mg given at 05.40, wheezing, going to get resp.Tx by Rt, I/O +400ml, IVF NS @75ml/h, on 2L n/c, O2 sat. 92-98%
[2017-01-31] MEDS: LEVOTHYROXINE SODIUM 50 MCG TABLET PO SCH (08:06)
[2017-01-31] MEDS: IPRATROPIUM NEB FS 0.5 MG/2.5 ML AMPUL.NEB NEB SCH ×4 (08:11→19:29)
[2017-01-31] MEDS: ALBUTEROL FS 2.5 MG/0.5 ML VIAL.NEB NEB SCH ×4 (08:12→19:29)
[2017-01-31] MEDS: PANTOPRAZOLE 40 MG VIAL IV SCH (08:17)
[2017-01-31] MEDS: CARVEDILOL 6.25 MG TABLET PO SCH ×2 (08:18→21:25)
[2017-01-31] MEDS: ASPIRIN 81 MG TAB.CHEW PO SCH (08:18)
[2017-01-31] MEDS: ACIDOPHILUS/BULGARICUS 1 EACH TAB.CHEW PO SCH ×2 (08:18→16:51)
[2017-01-31] MEDS: PREGABALIN 100 MG CAPSULE PO SCH ×3 (08:18→16:51)
[2017-01-31] MEDS: DILTIAZEM HCL CD 120 MG PO SCH (08:20)
[2017-01-31] MEDS: Z GUARD REMEDY 2 OZ OINT TP SCH ×2 (08:21→21:20)
--- NOTE | 2017-01-31 10:30 | NUR ---
OPERATER: is in room, updated with pt.current condition, history, VS, ABG, I/O, IVF, meds, resp.Tx, O2sat., said: stop IVF, see new orders
[2017-01-31 10:32] LABS: ABG BASE EXCESS 3.3 mmol/L; ABG OXYGEN SATURATION 95.3 % (92.0-98.5); ABG PCO2 41.6 mmHg (35.0-45.0); ABG PH 7.442 (7.350-7.450); ABG PO2 80.1 mmHg (75.0-100.0); AaDO2 70.5 mmHg; COHb 0.3 % (0.5-1.5); MetHb 1.4 % (0.0-1.5); O2Hb 93.7 % (94.0-97.0); SITE, ABG Right Radial; VENT MODE, BG NASAL CANNULA
--- NOTE | 2017-01-31 11:00 | NUR ---
LANDING MAN: is in room/notified re pt.history, pt.current condition, VS, ABG on n/c, I/O, meds, see new orders
--- NOTE | 2017-01-31 11:45 | NUR ---
BOILER SHOP MECHANIC: pt.is awake, weak, O2 sat. 94-100%, but RR 24-32, laboring breathing, resp.Tx was done before, pt.is placed back on Bipap by RT
--- NOTE | 2017-01-31 13:00 | NUR ---
TOLL LINEMAN: pt.is on Bipap continuous, RR 24-30, better breathing, but still some laboring, SR, O2sat. WNL, pt.is drowsy, with risk of aspiration/unable to give PO meds now
--- NOTE | 2017-01-31 14:40 | NUR ---
POULTRY FARM MANAGER: pt.is getting regular BP and prn meds, but still with SBP episodes up to 170-180 q3-4hrs, paged , got new order: increase Coreg 12.5mg PO now, then BID. Pt.son was in room, updated with pt.POC, VS, condition
[2017-01-31] MEDS ORDERED: CARVEDILOL 6.25 MG TABLET PO SCH ×2 (15:00→17:00)
--- NOTE | 2017-01-31 17:03 | NUR ---
LEAD NURSE: pt.got 12.5mg Coreg one extra dose at 15.00, will endorse next nurse to give next dose at 21.00 (instead 17.00)
--- NOTE | 2017-01-31 20:00 | NUR ---
Received patient resting in bed.Respiration even and unlabored.On Bipap rate 16,FIO2 30%,12/5. SPO2 98%.AV Paced 70's.Normotensive.Patient denies any discomfort.FC to gravity with small urine output.Turned and repositioned offloading pressure points.NS @ tko infusing to VAN Midline site intact.Continue monitoring.
[2017-01-31] MEDS ORDERED: CARVEDILOL 12.5 MG TABLET ONE (20:57)
[2017-01-31] MEDS: ENOXAPARIN SODIUM 30 MG/0.3 ML DISP.SYRIN SQ SCH (21:26)
[2017-01-31] MEDS: DONEPEZIL 5 MG TABLET PO SCH (21:27)
[2017-01-31] MEDS: FAMOTIDINE (20 MG) 20 MG TABLET PO SCH (21:27)
--- NOTE | 2017-01-31 22:05 | NUR ---
PRN Hydralazine administered for elevated BP.Turned and repositioned.Denies pain or any discomfort.
[2017-02-01] VITALS (42 sets, daily range): BP systolic 144–178; BP diastolic 49–91
--- NOTE | 2017-02-01 | NUR ---
Patient resting.Afebrile.Denies pain.Repositioned.
--- NOTE | 2017-02-01 02:00 | NUR ---
Patient awake.Afebrile.Bed bath rendered for comfort.Linens changed.Repositioned.Remains on Bipap and tolerating well.
--- NOTE | 2017-02-01 04:15 | NUR ---
0400 Patient BP 169/71 tried to get Hydralazine as PRN in the [facility] but no medication inside bin. dealer compliance representative,ED notified.He tried to get same medication from [facility] but is says to get another order from MD.
[2017-02-01] MEDS ORDERED: hydrALAZINE HCL IV 20 MG VIAL ONE (04:33)
[2017-02-01] MEDS: hydrALAZINE HCL IV 20 MG VIAL IV PRN ×4 (04:37→21:34)
[2017-02-01] MEDS: methylPREDNISolone SOD SUCC 40 MG/ML VIAL IV SCH ×4 (06:18→23:37)
--- NOTE | 2017-02-01 06:20 | NUR ---
Patient resting.VSS.AV Paced.No acute distress noted.Patient appears comfortable all throughout the night.All due medications administered.No BM noted.Adequate urine output.Turned and repositioned.
--- NOTE | 2017-02-01 07:12 | NUR ---
FISHER EEL NOTES RECEIVED PATIENT DROWSY , LETHARGIC , OPENS EYES VIA TACTILE STIMULATION , TACHYPNEIC RR OF 35 , ON BIPAP R 16 , 12/5 FIO2 30% SPO2 OF 95% , AV PACING 70 ON BEDSIDE MONITOR , FC DRAINING WELL VIA GRAVITY WITH CLOUDY YELLOW URINE , VAN MIDLINE PATENT AND INTACT WITH NS @ TKO , ALL NEEDS ATTENDED , BED ON LOW AND LOCKED POSITION , SIDE RAILS X2 ,CALL LIGHT WITHIN REACH . HOB @ 45, WILL CONTINUE TO MONITOR
[2017-02-01] MEDS: LEVOTHYROXINE SODIUM 50 MCG TABLET PO SCH ×2 (07:30→14:17)
[2017-02-01] MEDS: IPRATROPIUM NEB FS 0.5 MG/2.5 ML AMPUL.NEB NEB SCH ×4 (08:17→19:27)
[2017-02-01] MEDS: ALBUTEROL FS 2.5 MG/0.5 ML VIAL.NEB NEB SCH ×4 (08:17→19:27)
[2017-02-01 08:28] LABS: ABG BASE EXCESS 2.9 mmol/L; ABG PH 7.273 (7.350-7.450); ABG PO2 64.8 mmHg (75.0-100.0); COHb 0.9 % (0.5-1.5); MetHb 0.6 % (0.0-1.5); O2Hb 87.7 % (94.0-97.0); PEEP,BG 7 cm H2O; SITE, ABG Right Radial
--- NOTE | 2017-02-01 08:53 | NUR ---
SANDER AND POLISHER NOTES ABG RESULT RECEIVED , BIPAP SETTINGS CHANGE TO 18/7 , RA 16 , FIO2 OF 30% , ABG AFTER ONE HOUR , WILL CONTINUE TO MONITOR
[2017-02-01] MEDS: ASPIRIN 81 MG TAB.CHEW PO SCH ×2 (09:00→14:12)
[2017-02-01] MEDS: ACIDOPHILUS/BULGARICUS 1 EACH TAB.CHEW PO SCH ×2 (09:00→18:15)
[2017-02-01] MEDS: PREGABALIN 100 MG CAPSULE PO SCH ×3 (09:00→17:00)
[2017-02-01] MEDS: DILTIAZEM HCL CD 120 MG PO SCH ×2 (09:00→14:12)
[2017-02-01] MEDS: CARVEDILOL 6.25 MG TABLET PO SCH ×3 (09:00→18:15)
[2017-02-01 09:13] LABS: EOSINOPHILS # (AUTO) 0.2 /CMM (0.0-0.7); EOSINOPHILS % (AUTO) 1.4 % (0.0-6.0); HEMATOCRIT 30 % (33-45); HEMOGLOBIN 9.6 g/dL (11.5-14.8); LYMPHOCYTES # (AUTO) 0.3 /CMM (0.8-4.8); LYMPHOCYTES % (AUTO) 1.5 % (20.0-44.0); MEAN CORPUSCULAR HEMOGLOBIN 31 PG (26.0-33.0); MEAN CORPUSCULAR HGB CONC 32 g/dl (31.0-36.0); MEAN CORPUSCULAR VOLUME 95 fL (82-100); MONOCYTES # (AUTO) 0.2 /CMM (0.1-1.30); MONOCYTES % (AUTO) 1.2 % (2.0-12.0); NEUTROPHILS # (AUTO) 16.4 /CMM (1.8-8.9); NEUTROPHILS % (AUTO) 95.9 % (43.0-81.0); PLATELET COUNT (AUTO) 175 /CMM (150-450); RDW COEFFICIENT OF VARIATION 17.9 (11.5-15.0); RED BLOOD CELL COUNT(AUTO) 3.14 MIL/uL (4.0-5.2)
[2017-02-01 09:30] LABS: ALANINE AMINOTRANSFERASE 41 U/L (12-78); ALBUMIN 2.7 g/dL (3.4-5.0); ALKALINE PHOSPHATASE 58 U/L (46-116); ASPARTATE AMINOTRANSFERASE 25 U/L (15-37); BILIRUBIN,TOTAL 0.5 mg/dL (0.2-1.0); CALCIUM, SERUM 8.6 mg/dL (8.5-10.1); CARBON DIOXIDE 33 mmol/L (21-32); CHLORIDE 110 mmol/L (98-107); CREATININE 0.4 mg/dL (0.6-1.3); GLUCOSE 203 mg/dL (74-106); PHOSPHORUS 2.7 mg/dL (2.5-4.9); SODIUM SERUM 147 mmol/L (136-145); TOTAL PROTEIN, SERUM 5.6 g/dL (6.4-8.2); UREA NITROGEN, BLOOD 27 mg/dL (7-18)
--- NOTE | 2017-02-01 09:45 | NUR ---
SHANK TAPER NOTES PO MEDS HELD , PT ON BIPAP , STILL DROWSY AND LETHARGIC , HIGH ASPIRATION RISK
[2017-02-01] MEDS: PANTOPRAZOLE 40 MG VIAL IV SCH (10:25)
[2017-02-01] MEDS: Z GUARD REMEDY 2 OZ OINT TP SCH ×2 (10:27→21:33)
[2017-02-01 10:39] LABS: ABG BASE EXCESS 5.8 mmol/L; ABG PCO2 46.7 mmHg (35.0-45.0); ABG PH 7.437 (7.350-7.450); ABG PO2 85.6 mmHg (75.0-100.0); AaDO2 73.4 mmHg; COHb 0.3 % (0.5-1.5); MetHb 1.6 % (0.0-1.5); O2Hb 94.2 % (94.0-97.0); PEEP,BG 7 cm H2O; SITE, ABG Right Radial
[2017-02-01] MEDS ORDERED: IV NS 0.9% 250 ML IV PRN (12:00)
--- NOTE | 2017-02-01 14:17 | NUR ---
ONCOLOGY PHYSICIAN NOTES PATIENT IS MORE AWAKE X 1-2 , ABLE TO FOLLOWS SIMPLE COMMANDS , OFF BIPAP , SPO2 OF 100% VIA 3LPM NC , DAILY PO MEDS GIVEN , PT TOLERATED WELL WITH NO S/S OF ASPIRATIONS .
--- NOTE | 2017-02-01 14:23 | NUR ---
EXECUTIVE DIRECTOR OF NURSING NOTES RECEIVED A CALL FROM HEEL CEMENTER MACHINE , JUNE START PT ON BOOST BID , ORDERS CARRIED OUT
--- NOTE | 2017-02-01 14:30 | NUR ---
AIRCRAFT PILOT NOTES PLACED PT BACK ON BIPAP SETTING ORDERED , DUE TO INCREASE WORK OF BREATHING , TACHYPNEIC RR OF 35-40 CPM , WILL CONTINUE TO MONITOR
[2017-02-01] MEDS: BOOST PLUS FOOD-CHOCLATE 237 ML BOX PO SCH (17:00)
--- NOTE | 2017-02-01 18:16 | NUR ---
SILVICULTURE PROFESSOR NOTES LYRICA SCHEDULE NON ADMIN , PT IS DROWSY TODAY ,
--- NOTE | 2017-02-01 19:26 | NUR ---
ENVIRONMENTAL SAMPLING TECHNICIAN NOTES CALLED [facility], SPOKE WITH ROLDAN WILSON HISTOLOGY TECHNOLOGIST , DISCUSSED THAT K OF 3.0 WAS NOT REPLACED SINCE AM , PER HISTOLOGY TECHNOLOGIST SHE WILL ORDER REPEAT POTASSIUM AND SHE WILL REPLACED DEPENDS ON THE RESULT
--- NOTE | 2017-02-01 20:00 | NUR ---
Received patient awake alert and oriented x 1.Follows simple commands.VS stable.AV paced. Denies pain.Bipap on with rate 16,18/7,30%.No respiratory distress noted.SPO2 99%.IVF NS infusing @ tko rate via VAN Midline.Site intact.FC to gravity with yellow urine.Turned and repositioned.Call light at bedside within easy reach.
[2017-02-01] MEDS ORDERED: POTASSIUM CHLORIDE 20 MEQ POWDER PACKET ONE (21:28)
[2017-02-01] MEDS ORDERED: POTASSIUM CHLORIDE 20 MEQ POWDER PACKET GT ONE (21:30)
[2017-02-01] MEDS: FAMOTIDINE (20 MG) 20 MG TABLET PO SCH (21:33)
[2017-02-01] MEDS: DONEPEZIL 5 MG TABLET PO SCH (21:33)
[2017-02-01] MEDS: ENOXAPARIN SODIUM 30 MG/0.3 ML DISP.SYRIN SQ SCH (21:34)
--- NOTE | 2017-02-01 21:35 | NUR ---
Patient PM labs resulted K+ Level 2.7 called to QUENTIN Hui.Orders received and carried out.
[2017-02-02] VITALS (51 sets, daily range): BP systolic 114–188; BP diastolic 32–94
--- NOTE | 2017-02-02 | NUR ---
Patient resting in no acute distress.VS stable.Patient SBP remains 150's,160's,170's despite Hydralazine.No BM noted.Kept clean and dry.Turned and repositioned.Will endorsed to AM shift RN for continuity of care.
[2017-02-02] MEDS ORDERED: hydrALAZINE HCL IV 20 MG VIAL ONE (01:34)
[2017-02-02] MEDS: hydrALAZINE HCL IV 20 MG VIAL IV PRN ×2 (01:36→13:33)
[2017-02-02 04:55] LABS: HEMATOCRIT 29 % (33-45); HEMOGLOBIN 9.3 g/dL (11.5-14.8); LYMPHOCYTES # (AUTO) 0.2 /CMM (0.8-4.8); MEAN CORPUSCULAR HEMOGLOBIN 31 PG (26.0-33.0); MEAN CORPUSCULAR HGB CONC 33 g/dl (31.0-36.0); MEAN CORPUSCULAR VOLUME 94 fL (82-100); MONOCYTES # (AUTO) 0.2 /CMM (0.1-1.30); MONOCYTES % (AUTO) 1.1 % (2.0-12.0); NEUTROPHILS # (AUTO) 15.5 /CMM (1.8-8.9); NEUTROPHILS % (AUTO) 97.9 % (43.0-81.0); PLATELET COUNT (AUTO) 196 /CMM (150-450); RDW COEFFICIENT OF VARIATION 17.9 (11.5-15.0); RED BLOOD CELL COUNT(AUTO) 3.02 MIL/uL (4.0-5.2); WHITE BLOOD COUNT (AUTO) 15.8 K/uL (4.3-11.0)
[2017-02-02 05:12] LABS: CALCIUM, SERUM 8.9 mg/dL (8.5-10.1); CARBON DIOXIDE 34 mmol/L (21-32); CHLORIDE 108 mmol/L (98-107); CREATININE 0.4 mg/dL (0.6-1.3); GLUCOSE 193 mg/dL (74-106); PHOSPHORUS 2.1 mg/dL (2.5-4.9); POTASSIUM 3.3 mmol/L (3.5-5.1); SODIUM SERUM 147 mmol/L (136-145); UREA NITROGEN, BLOOD 27 mg/dL (7-18)
[2017-02-02] MEDS: methylPREDNISolone SOD SUCC 40 MG/ML VIAL IV SCH ×3 (05:41→17:13)
--- NOTE | 2017-02-02 07:19 | NUR ---
Patient status unchanged.Needs attended.
[2017-02-02] MEDS: IPRATROPIUM NEB FS 0.5 MG/2.5 ML AMPUL.NEB NEB SCH ×4 (07:40→19:57)
[2017-02-02] MEDS: ALBUTEROL FS 2.5 MG/0.5 ML VIAL.NEB NEB SCH ×4 (07:40→19:57)
--- NOTE | 2017-02-02 08:00 | NUR ---
AROUSABLE TO NAME, APPEARS LETHARGIC. ABLE TO SQUEEZE HAND LIGHTLY TO COMMAND. ON BIPAP-RATE 16, 18/7, 30%. SPO2 >93%. AV PACED ON MONITOR AT 70'S. SBP>160. AFEBRILE. UO ADEQUATE.
[2017-02-02] MEDS: LEVOTHYROXINE SODIUM 50 MCG TABLET PO SCH (08:10)
[2017-02-02] MEDS: BOOST PLUS FOOD-CHOCLATE 237 ML BOX PO SCH ×2 (08:11→17:14)
--- NOTE | 2017-02-02 08:20 | NUR ---
PT. APPEARS MORE TACHYPNEIC. SPO2<85%. ABG DONE BY RT. PH 7.37, PCO2 57.8, PO2 46. FIO2 INCREASED TO 80% BY RT.
[2017-02-02 08:22] LABS: ABG BASE EXCESS 6.8 mmol/L; ABG OXYGEN SATURATION 81.4 % (92.0-98.5); ABG PCO2 57.8 mmHg (35.0-45.0); ABG PH 7.378 (7.350-7.450); AaDO2 172.7 mmHg; COHb 0.5 % (0.5-1.5); MetHb 0.8 % (0.0-1.5); O2Hb 80.3 % (94.0-97.0); SITE, ABG Right Radial; VENT MODE, BG 18/7 R16 40%
--- NOTE | 2017-02-02 08:30 | NUR ---
PATIENT SPO2 REMAINS 86%. FIO2 TO 100%.
--- NOTE | 2017-02-02 08:40 | NUR ---
DR. ESPOSITO AT BEDSIDE TO EXAMINE PATIENT. ABG RESULTS GIVEN.
[2017-02-02] MEDS: DILTIAZEM HCL CD 120 MG PO SCH (09:00)
[2017-02-02] MEDS: ACIDOPHILUS/BULGARICUS 1 EACH TAB.CHEW PO SCH (09:00)
[2017-02-02] MEDS: CARVEDILOL 6.25 MG TABLET PO SCH (09:00)
[2017-02-02] MEDS: ASPIRIN 81 MG TAB.CHEW PO SCH (09:00)
[2017-02-02] MEDS: PREGABALIN 100 MG CAPSULE PO SCH ×2 (09:00→12:10)
--- NOTE | 2017-02-02 09:00 | NUR ---
SPO2 IMPROVED TO 98%. REMAINS TACHYNEIC AT 35. AROUSABLE BUT REMAINS LETHARGIC.
--- NOTE | 2017-02-02 09:10 | NUR ---
PATIENT SEEN AND EXAMINED BY DR. GUPTA-ABG RESULTS NOTED BY MD. TO REPEAT ABG AT 1030. WILL NOTIFY RT.
[2017-02-02] MEDS: Z GUARD REMEDY 2 OZ OINT TP SCH ×2 (09:33→21:07)
--- NOTE | 2017-02-02 10:00 | NUR ---
ALL AM PO MEDS NOT GIVEN AT THIS TIME. PATIENT REMAINS TACHYNEIC WITH 100% FIO2 ON BIPAP. UNABLE TO INSERT NGT.
[2017-02-02] MEDS: PANTOPRAZOLE 40 MG VIAL IV SCH (10:18)
[2017-02-02 10:32] LABS: BAND % (MANUAL) 1 % (0.0-5.0); LYMPHOCYTES % (MANUAL) 1 % (16-48); MONOCYTES % (MANUAL) 1 % (0-11.0); NEUTROPHILS % (MANUAL) 97 (42-76)
--- NOTE | 2017-02-02 10:40 | NUR ---
REPEAT ABG RESULTS GIVEN TO DR. GUPTA.PH 7.33, PCO2 70, PO2 55.. NO BIPAP CHANGES AT THIS TIME. MD SPEAKING TO PATIENT SON YULY REGARDING PATIENT CONDITION
[2017-02-02 10:41] LABS: ABG BASE EXCESS 8.5 mmol/L; ABG OXYGEN SATURATION 86.8 % (92.0-98.5); ABG PH 7.332 (7.350-7.450); ABG PO2 55.2 mmHg (75.0-100.0); AaDO2 295.6 mmHg; COHb 0.4 % (0.5-1.5); MetHb 0.4 % (0.0-1.5); O2Hb 86.1 % (94.0-97.0); PEEP,BG 7 cm H2O; SITE, ABG Right Radial; VENT MODE, BG st 18/7 RR 16 60%
--- NOTE | 2017-02-02 10:50 | NUR ---
PATIENT SON AGREED FOR REINTUBATION PER DR. GUPTA. SPOKE TO SON ALSO REGARDING TRACHEOSTOMY AND WILL CONSENT.
[2017-02-02] MEDS ORDERED: NEUTRA PHOS 1 POWD.PACKET NG ONE (11:30)
--- NOTE | 2017-02-02 11:30 | NUR ---
RT POST POOR ABG RESULTS ON BIPAP PER DR GUPTA ORDERS PATIENT WAS ORALLY INTUBATED BY ER MD JUAN. INTUBATED WITH A 7.5 ETT SECURED VIA ANCHOR FAST AT 22CM MID LIP. POSITIVE CO2 DETECTOR COLOR CHANGE. BILAT BREATH SOUND AUSCULTATED. BILAT CHEST RISE NOTED. PATIENT PLACED ON [facility] VENT WITH PREVIOUS VENT SETTINGS PER DR GUPTA. AC 18, 450, +5 60% VENT ALARMS CHECKED + AUDIBLE. CUFF PRESSURE CHECKED ASSISTANT NURSE MANAGER. VENT PLUGGED INTO RED OUTLET. AMBU BAG AT HOB. Addendum: 02/02/17 at 1206 by SINDY HEARN RT Amended: Links added.
--- NOTE | 2017-02-02 11:30 | NUR ---
PATIENT INTUBATED BY DR. JUAN POST ANDREW 60 MGS., ETOMIDATE 20 MGS. 7.5, [address] VENT AC 18 TV 450 PEEP5 60% BY RT. SXR POST INTUBATION DONE.
[2017-02-02] MEDS ORDERED: POTASSIUM CHLORIDE 20 MEQ POWDER PACKET GT SCH (12:30)
[2017-02-02] MEDS ORDERED: PHARMACY TO CHANGE PO MEDS TO GT/NG XX PRN (12:30)
[2017-02-02] MEDS: PREGABALIN 100 MG CAPSULE GT SCH ×2 (12:41→17:13)
[2017-02-02] MEDS ORDERED: ROCURONIUM BROMIDE 50 MG/5 ML IV ONE (12:48)
[2017-02-02] MEDS ORDERED: ETOMIDATE 2 MG/ML VIAL IV ONE (12:48)
--- NOTE | 2017-02-02 14:00 | NUR ---
POST INTUBATION ABG DONE. WILL NOTIFY DR. GUPTA. PATIENT EASILY AROUSABLE TO NAME. FOLLOWS SIMPLE COMMANDS. BITING ETT AT TIMES.
[2017-02-02 14:20] LABS: ABG BASE EXCESS 7.5 mmol/L; ABG OXYGEN SATURATION 98.3 % (92.0-98.5); ABG PCO2 41.4 mmHg (35.0-45.0); ABG PH 7.497 (7.350-7.450); ABG PO2 134.8 mmHg (75.0-100.0); AaDO2 247.5 mmHg; COHb 0.3 % (0.5-1.5); MetHb 0.4 % (0.0-1.5); O2Hb 97.6 % (94.0-97.0); SITE, ABG Right Radial
--- NOTE | 2017-02-02 15:30 | NUR ---
ABG RESULTS SEEN BY DR. GUPTA. VENT CHANGES DONE BY RT. DECREASED RATE TO 12.
[2017-02-02] MEDS: PROPOFOL 100 ML IV PRN (15:55)
--- NOTE | 2017-02-02 16:00 | NUR ---
PATIENT MORE AWAKE. DIPRIVAN RESTARTED PER PROTOCOL. BILATERAL WRIST RESTRAINTS APPLIED.
--- NOTE | 2017-02-02 16:30 | NUR ---
PATIENT UPDATED GIVEN TO PATIENT CORNELIA EMERY.
[2017-02-02] MEDS: ACIDOPHILUS/BULGARICUS 1 EACH TAB.CHEW GT SCH (17:13)
[2017-02-02] MEDS: CARVEDILOL 6.25 MG TABLET GT SCH (17:13)
--- NOTE | 2017-02-02 19:30 | NUR ---
STARCH FACTORY LABORER INITIAL NOTE RECEIVED REPORT FROM ABIOLA BLACKWELL. PT IS INTUBATED AND SEDATED. VENT SETTINGS AC12 TV 450 FIO2 50% PEEP 5. LUNG SOUNDS RHONCHI. BOWEL SOUNDS PRESENT. KHOURY INTACT AND DRAINING URINE, PINKISH TINGE. PULSES PRESENT. IV PATENT AND INTACT. BED IN LOW LOCKED POSITION. WILL CONTINUE TO MONITOR.
[2017-02-02] MEDS: DONEPEZIL 5 MG TABLET GT SCH (21:05)
[2017-02-02] MEDS: FAMOTIDINE (20 MG) 20 MG TABLET GT SCH (21:05)
[2017-02-02] MEDS: DILTIAZEM HCL 30 MG TABLET GT SCH (21:06)
[2017-02-02] MEDS: ENOXAPARIN SODIUM 30 MG/0.3 ML DISP.SYRIN SQ SCH (21:07)
[2017-02-03] VITALS (57 sets, daily range): BP systolic 90–137; BP diastolic 30–51
[2017-02-03] MEDS: methylPREDNISolone SOD SUCC 40 MG/ML VIAL IV SCH ×4 (00:18→17:10)
[2017-02-03] MEDS: PROPOFOL 100 ML IV PRN ×3 (02:13→20:32)
--- NOTE | 2017-02-03 04:00 | NUR ---
BUNKER WORKER PT IS AWAKE ON VENTILATOR, BITING ON TUBE. SEDATION INCREASED. PT REPOSITIONED FOR COMFORT. WILL CONTINUE TO MONITOR.
[2017-02-03 05:50] LABS: CALCIUM, SERUM 8.2 mg/dL (8.5-10.1); CARBON DIOXIDE 35 mmol/L (21-32); CHLORIDE 112 mmol/L (98-107); CREATININE 0.5 mg/dL (0.6-1.3); GLUCOSE 166 mg/dL (74-106); PHOSPHORUS 2.6 mg/dL (2.5-4.9); POTASSIUM 3.2 mmol/L (3.5-5.1); SODIUM SERUM 151 mmol/L (136-145); UREA NITROGEN, BLOOD 35 mg/dL (7-18)
[2017-02-03] MEDS: IPRATROPIUM NEB FS 0.5 MG/2.5 ML AMPUL.NEB NEB SCH ×4 (07:03→19:26)
[2017-02-03] MEDS: ALBUTEROL FS 2.5 MG/0.5 ML VIAL.NEB NEB SCH ×4 (07:03→19:26)
[2017-02-03 08:26] LABS: ABG BASE EXCESS 6.9 mmol/L; ABG OXYGEN SATURATION 98.6 % (92.0-98.5); ABG PCO2 40.2 mmHg (35.0-45.0); ABG PO2 209.3 mmHg (75.0-100.0); COHb 0.6 % (0.5-1.5); MetHb 0.9 % (0.0-1.5); O2Hb 97.1 % (94.0-97.0); PEEP,BG 5 cm H2O; SITE, ABG Right Radial; VT, ABG 450 mL
--- NOTE | 2017-02-03 08:30 | NUR ---
RN NOTES PT ON SEDATION VACATION. PATIENT MORE AWAKE, APPEARS TACHYPNEIC AND RESTLESS. DIPRIVAN RESTARTED ON PREVIOUS RATE.
[2017-02-03] MEDS: PREGABALIN 100 MG CAPSULE GT SCH ×3 (08:50→17:10)
[2017-02-03] MEDS: ASPIRIN 81 MG TAB.CHEW GT SCH (08:50)
[2017-02-03] MEDS: ACIDOPHILUS/BULGARICUS 1 EACH TAB.CHEW GT SCH ×2 (08:50→17:10)
[2017-02-03] MEDS: DILTIAZEM HCL 30 MG TABLET GT SCH ×4 (08:51→21:27)
[2017-02-03] MEDS: CARVEDILOL 6.25 MG TABLET GT SCH ×2 (08:52→17:11)
[2017-02-03] MEDS: Z GUARD REMEDY 2 OZ OINT TP SCH ×2 (08:52→21:27)
[2017-02-03] MEDS: LEVOTHYROXINE SODIUM 50 MCG TABLET GT SCH (08:55)
[2017-02-03] MEDS: BOOST PLUS FOOD-CHOCLATE 237 ML BOX PO SCH ×2 (08:58→18:09)
[2017-02-03] MEDS: PANTOPRAZOLE 40 MG VIAL IV SCH (08:58)
--- NOTE | 2017-02-03 09:15 | NUR ---
RN NOTES PT WAS SEEN AND EVALUATED BY DR GUPTA AT BEDSIDE. WILL CALL DR ASTUDILLO'S OFFICE FOR TRACHE PLACEMENT SCHEDULE. ALSO DISCUSSED WITH MD LATEST ABG RESULT, PER MD OK TO SWITCH FIO2 FROM 40 DOWN TO 30% AND TV FROM 450 TO 400. RT INFORMED.
[2017-02-03] MEDS: POTASSIUM CHLORIDE 20 MEQ POWDER PACKET GT SCH ×2 (12:30→13:05)
[2017-02-03] MEDS ORDERED: POTASSIUM CHLORIDE 20 MEQ POWDER PACKET GT SCH (14:30)
--- NOTE | 2017-02-03 14:51 | NUR ---
RN NOTES CALLED DR ASTUDILLO'S OFFICE TO FOLLOW UP TRACHEOSTOMY PLACEMENT SCHEDULE, PER EPIDEMIOLOGIST DR ROSS IS BARNWORKER GROOM. HAS BEEN PAGED, AWAITING FOR CALL BACK.
--- NOTE | 2017-02-03 18:10 | NUR ---
ROSALVA NOTES PT NOTED WITH EMESIS, ABDOMEN DISTENDED. CALLED JANET FERRARO. PER JANET ORTIZ GT CONNECT TO LIS. JOHNSON GIVEN WITH RELIEF Addendum: 02/04/17 at 1249 by DELL ROBERTSON RN WRONG ENTRY. WRONG PATIENT
[2017-02-03] MEDS: FAMOTIDINE (20 MG) 20 MG TABLET GT SCH (21:26)
[2017-02-03] MEDS: ENOXAPARIN SODIUM 30 MG/0.3 ML DISP.SYRIN SQ SCH (21:26)
[2017-02-03] MEDS: DONEPEZIL 5 MG TABLET GT SCH (21:26)
[2017-02-04] VITALS (45 sets, daily range): BP systolic 91–128; BP diastolic 28–65
[2017-02-04] MEDS: methylPREDNISolone SOD SUCC 40 MG/ML VIAL IV SCH ×5 (00:22→23:36)
[2017-02-04 04:53] LABS: CALCIUM, SERUM 8.3 mg/dL (8.5-10.1); CARBON DIOXIDE 35 mmol/L (21-32); CHLORIDE 113 mmol/L (98-107); CREATININE 0.7 mg/dL (0.6-1.3); GLUCOSE 226 mg/dL (74-106); POTASSIUM 4.3 mmol/L (3.5-5.1); SODIUM SERUM 151 mmol/L (136-145); UREA NITROGEN, BLOOD 42 mg/dL (7-18)
[2017-02-04] MEDS: PROPOFOL 100 ML IV PRN ×2 (06:01→18:11)
[2017-02-04] MEDS: ALBUTEROL FS 2.5 MG/0.5 ML VIAL.NEB NEB SCH ×4 (07:35→19:51)
[2017-02-04] MEDS: IPRATROPIUM NEB FS 0.5 MG/2.5 ML AMPUL.NEB NEB SCH ×4 (07:35→19:51)
--- NOTE | 2017-02-04 08:10 | NUR ---
RN NOTES PT ON SEDATION VACATION. PATIENT MORE AWAKE, APPEARS TACHYPNEIC AND RESTLESS. DIPRIVAN RESTARTED
[2017-02-04] MEDS: PANTOPRAZOLE 40 MG VIAL IV SCH (09:00)
[2017-02-04] MEDS: ACIDOPHILUS/BULGARICUS 1 EACH TAB.CHEW GT SCH ×2 (09:01→18:03)
[2017-02-04] MEDS: PREGABALIN 100 MG CAPSULE GT SCH ×3 (09:01→18:03)
[2017-02-04] MEDS: CARVEDILOL 6.25 MG TABLET GT SCH ×2 (09:03→18:02)
[2017-02-04 09:24] LABS: ABG BASE EXCESS 11.7 mmol/L; ABG OXYGEN SATURATION 97.5 % (92.0-98.5); ABG PCO2 45.8 mmHg (35.0-45.0); ABG PH 7.511 (7.350-7.450); ABG PO2 109.1 mmHg (75.0-100.0); COHb 0.4 % (0.5-1.5); O2Hb 96.1 % (94.0-97.0); PEEP,BG 5 cm H2O; SITE, ABG Right Radial; VENT MODE, BG AC 12 400; VT, ABG 400 mL
[2017-02-04] MEDS: ASPIRIN 81 MG TAB.CHEW GT SCH (10:49)
[2017-02-04] MEDS: LEVOTHYROXINE SODIUM 50 MCG TABLET GT SCH (10:49)
[2017-02-04] MEDS: DILTIAZEM HCL 30 MG TABLET GT SCH ×4 (10:50→21:04)
[2017-02-04] MEDS: Z GUARD REMEDY 2 OZ OINT TP SCH ×2 (10:50→21:03)
[2017-02-04] MEDS: BOOST PLUS FOOD-CHOCLATE 237 ML BOX PO SCH ×2 (10:51→18:04)
--- NOTE | 2017-02-04 11:15 | NUR ---
RN NOTES CALLED DR WALKER OFFICE TO FOLLOW UP TRACHE PLACEMENT SCHEDULE, AWAITING FOR RETURN CALL
--- NOTE | 2017-02-04 13:00 | NUR ---
RN NOTES OGT ADVANCED 2 CM. VERIFIED PLACEMENT WITNESSED BY ANOTHER RN
--- NOTE | 2017-02-04 20:00 | NUR ---
Received patient sedated on Diprivan drip at 20 mcg/kg/min infusing via VAN Midline.Site intact. patient orally intubated on AC mode.Parameters well tolerated.Secretions suctioned and oral care done.AV Paced per monitor.VS stable.NPO status with OGT clamped.Placement verified.FC to gravity with yellow urine.Turned and repositioned offloading pressure points.No pain noted. Continue monitoring.
[2017-02-04] MEDS: ENOXAPARIN SODIUM 30 MG/0.3 ML DISP.SYRIN SQ SCH (21:02)
[2017-02-04] MEDS: DONEPEZIL 5 MG TABLET GT SCH (22:00)
[2017-02-04] MEDS: FAMOTIDINE (20 MG) 20 MG TABLET GT SCH (22:00)
[2017-02-05] VITALS (45 sets, daily range): BP systolic 91–132; BP diastolic 32–73
--- NOTE | 2017-02-05 | NUR ---
Patient resting/sedated.VS remains stable.Turned and repositioned.No acute distress noted.
[2017-02-05] MEDS ORDERED: IV NS 0.9% 100 ML IV ONE (00:30)
[2017-02-05] MEDS: methylPREDNISolone SOD SUCC 40 MG/ML VIAL IV SCH ×3 (05:34→17:06)
[2017-02-05] MEDS: PROPOFOL 100 ML IV PRN ×2 (06:00→16:20)
--- NOTE | 2017-02-05 06:00 | NUR ---
Patient resting.VS stable.AV paced.Diprivan drip maintained at 20 mcg/kg/min.AM care done. Oral care done.No BM noted.No significant change noted throughout the shift.Turned and repositioned.
[2017-02-05] MEDS: ALBUTEROL FS 2.5 MG/0.5 ML VIAL.NEB NEB SCH ×4 (07:13→19:03)
[2017-02-05] MEDS: IPRATROPIUM NEB FS 0.5 MG/2.5 ML AMPUL.NEB NEB SCH ×4 (07:13→19:03)
--- NOTE | 2017-02-05 07:48 | NUR ---
RN NOTE RECEIVED PT IN BED, PT IS INTUBATED AND SEDATED. VENT SETTINGS AC12 TV400 FIO2 30% PEEP 5. LUNG SOUNDS RHONCHI. BOWEL SOUNDS PRESENT. KHOURY INTACT AND IN PLACE. AUGIE MIDLINE PATENT AND INTACT ONGOING DIRPRIVAN@20MCG/KG/MIN. NO ACUTE DISTRESS NOTED. REPOSITIONED FOR COMFORT. BED IN LOW LOCKED POSITION. WILL CONTINUE TO MONITOR CLOSELY.
--- NOTE | 2017-02-05 08:35 | NUR ---
RN NOTES PT ON SEDATION VACATION, PT NOTED RESTLESS, HR WENT UP TO 140'S, RESUMED DIPRIVAN @50MCG/KG/MIN
[2017-02-05] MEDS: BOOST PLUS FOOD-CHOCLATE 237 ML BOX PO SCH (08:39)
[2017-02-05] MEDS: ACIDOPHILUS/BULGARICUS 1 EACH TAB.CHEW GT SCH ×2 (08:40→16:17)
[2017-02-05] MEDS: PREGABALIN 100 MG CAPSULE GT SCH ×3 (08:40→16:18)
[2017-02-05] MEDS: ASPIRIN 81 MG TAB.CHEW GT SCH (08:40)
[2017-02-05] MEDS: PANTOPRAZOLE 40 MG VIAL IV SCH (08:40)
[2017-02-05] MEDS: CARVEDILOL 6.25 MG TABLET GT SCH ×2 (08:41→16:17)
[2017-02-05] MEDS: DILTIAZEM HCL 30 MG TABLET GT SCH ×4 (08:42→21:24)
[2017-02-05] MEDS: LEVOTHYROXINE SODIUM 50 MCG TABLET GT SCH (08:43)
[2017-02-05] MEDS: Z GUARD REMEDY 2 OZ OINT TP SCH ×2 (08:43→21:25)
--- NOTE | 2017-02-05 10:36 | NUR ---
RN NOTES SPOKE WIT DR ESPOSITO, PT WAS SEEN AND EVALUATED. REPORTED PT POSITIVE FOR STOOL OB. PER MD GI WILL BE CONSULTED, FOR PEG PLACEMENT. DR ESPOSITO ORDERED GTF FIBERSOURCE@40ML/HR AND PROSTAT BID PER DIETARY RECOMMENDATIONS. DR ROSS WILL DO TRACHE PLACEMENT IN THE NEXT FEW DAYS, DR ESPOSITO AWARE.
[2017-02-05 11:57] LABS: EOSINOPHILS % (AUTO) 0.3 % (0.0-6.0); HEMATOCRIT 21 % (33-45); LYMPHOCYTES # (AUTO) 0.2 /CMM (0.8-4.8); LYMPHOCYTES % (AUTO) 2.8 % (20.0-44.0); MEAN CORPUSCULAR HEMOGLOBIN 31 PG (26.0-33.0); MEAN CORPUSCULAR HGB CONC 33 g/dl (31.0-36.0); MEAN CORPUSCULAR VOLUME 94 fL (82-100); MONOCYTES # (AUTO) 0.2 /CMM (0.1-1.30); MONOCYTES % (AUTO) 2.3 % (2.0-12.0); NEUTROPHILS # (AUTO) 7.8 /CMM (1.8-8.9); NEUTROPHILS % (AUTO) 94.6 % (43.0-81.0); PLATELET COUNT (AUTO) 89 /CMM (150-450); RDW COEFFICIENT OF VARIATION 18.1 (11.5-15.0); RED BLOOD CELL COUNT(AUTO) 2.24 MIL/uL (4.0-5.2); WHITE BLOOD COUNT (AUTO) 8.3 K/uL (4.3-11.0)
[2017-02-05 12:00] LABS: HEMOGLOBIN 6.9 g/dL (11.5-14.8)
[2017-02-05 12:12] LABS: CALCIUM, SERUM 8.1 mg/dL (8.5-10.1); CARBON DIOXIDE 34 mmol/L (21-32); CHLORIDE 110 mmol/L (98-107); CREATININE 0.6 mg/dL (0.6-1.3); GLUCOSE 232 mg/dL (74-106); POTASSIUM 4.3 mmol/L (3.5-5.1); SODIUM SERUM 148 mmol/L (136-145); UREA NITROGEN, BLOOD 38 mg/dL (7-18)
--- NOTE | 2017-02-05 12:21 | NUR ---
RN NOTES RECEIVED CRITICAL VALUE FROM LAB, HEMOGLOBIN 6.9. DR ESPOSITO NOTIFIED, PER MD TO GIVE 2UNITS PRBC.
[2017-02-05 12:47] LABS: BAND % (MANUAL) 5 % (0.0-5.0); LYMPHOCYTES % (MANUAL) 2 % (16-48); MONOCYTES % (MANUAL) 3 % (0-11.0); NEUTROPHILS % (MANUAL) 90 (42-76)
--- NOTE | 2017-02-05 13:24 | NUR ---
RN NOTES CALLED SON YULY TO OBTAIN CONSENT FOR BLOOD TRANSFUSION. CORNELIA EMERY AGREED FOR BLOOD TRANSFUSION, CONSENT VERIFIED WITH CHARGE NURSE MARCO.
[2017-02-05] MEDS: PROSOURCE / PROSTAT (PYXIS) 30 ML UDC GT SCH (16:20)
[2017-02-05] MEDS: FIBERSOURCE HN 1,000 ML BOTTLE GT PRN (16:20)
--- NOTE | 2017-02-05 19:46 | NUR ---
director of curriculum and instruction initial assessment. received the pt rest on the bed. orally intubated. sedated with diprivan. ett 7.5cm,LIP 22,AC 12, TV 400,FIO2 30%, PEEP 5, SAT 98%. NO ACUTE DISTRESS NOTED. RETORT ENGINEER SHOWING AV PACING. OGT INTACT. FIBER SOURCE 40ML/H. HOB ELEVATED. FC PATENT. CECY SOFT WRIST RESTRAINT CHECKED AND RELEASED. NO INJURY OR REDNESS NOTED. TURN AND REPOSITION Q2H. WILL CONTINUE TO MONITOR VITALS.
[2017-02-05] MEDS: FAMOTIDINE (20 MG) 20 MG TABLET GT SCH (21:24)
[2017-02-05] MEDS: DONEPEZIL 5 MG TABLET GT SCH (21:24)
[2017-02-05] MEDS: IV NS 0.9% 100 ML IV PRN (23:11)
[2017-02-06] VITALS (62 sets, daily range): BP systolic 111–161; BP diastolic 30–83
[2017-02-06] MEDS: methylPREDNISolone SOD SUCC 40 MG/ML VIAL IV SCH ×4 (00:26→18:03)
--- NOTE | 2017-02-06 03:42 | NUR ---
FABRICATION DEPARTMENT SUPERVISOR. EMMA SIGNALS COLLECTION TECHNICIAN CALLED FOR SCHEDULED EGD WITH PEG PLACEMENT. TODAY. NPO FROM 0000. RONAN OSCAR MADE AWARE PT NEED 2UNITS PRBC, PT IS ANTIBODY BLOOD WILL BE READY TODAY.
--- NOTE | 2017-02-06 03:49 | NUR ---
WINDOW GLAZIER HELPER. AM CARE, ORAL CARE, BED BATH GIVEN. LINEN CHANGED. REMAINING SAME VENT SETTING TOLERATED WELL. SAT 98%. NO ACUTE DISTRESS NOTED. LATH TIER SHOWING AV PACING. OGT CLAMPED. NPO MAC 0000 FC PATENT. URINE DRAINING. CECY SAOFT WRIST RESTRAINT CHECKED AND RELEASED. NO IN JURY OR REDNESS NOTED. IV LT UPPER ARM MID LINEDIPRIVAN 15MCG/KG/MIN, TKO @5ML/H. TURN AND REPOSITION Q2H. AFEBRILE. WILL CONTINUE TO MONITOR VITALS.
[2017-02-06] MEDS: PROPOFOL 100 ML IV PRN ×2 (04:48→09:32)
--- NOTE | 2017-02-06 06:05 | NUR ---
PHP MAGENTO DEVELOPER. CALLED THE LAB AT 0699. PRBC NOT READY,
--- NOTE | 2017-02-06 06:42 | NUR ---
MEDICINE TECHNOLOGIST. DURING SHIFT NO ACTIVE BLEEDING NOTED.
--- NOTE | 2017-02-06 07:00 | NUR ---
ICU INITIAL NOTE- RECEIVED REPORT FROM JIM BLACKWELL, PT WAS RECEIVED AWAKE, ABLE TO FOLLOW SIMPLE COMMANDS, PT [facility] ETT 7.07/14 LIPLINE AC 12 TV 400 FIO2 30% PEEP 5, SATING WELL, NO S/S OF RESP.DISTRESS OR SOB NOTED AT THIS TIME, PT IS ON BEDSIDE MONITOR SHOWING SR/ AV PACING @ 70'S, NO S/S OF CHEST PAIN OR DISCOMFORT AT THIS TIME, PT HAS OGT, CLAMPED, PT HAS F/C DRAINING YELLOW URINE TO GRAVITY, PT HAS VAN MIDLINE, C/D/I/PATENT, FLUSHING WELL, RUNNING DIPRIVAN @ 5MCG/MIN, TKO @ 5ML/HR ,NO S/S OF INFECTION/ INFILTRATION NOTED AT THIS TIME,PT IS NOTED WITH MULTIPLE SKIN ISSUES,PT HAS BILATERAL WRIST RESTRAINTS ON, RELEASED AND SKIN CHECK DONE, ROM DONE, CALL LIGHT WITHIN EASY REACH, ALL SAFETY MEASURES IN PLACE AT ALL TIMES, WILL MONITOR PT CLOSELY FOR CHANGES
[2017-02-06] MEDS: LEVOTHYROXINE SODIUM 50 MCG TABLET GT SCH (07:30)
[2017-02-06] MEDS: IPRATROPIUM NEB FS 0.5 MG/2.5 ML AMPUL.NEB NEB SCH ×4 (07:35→19:37)
[2017-02-06] MEDS: ALBUTEROL FS 2.5 MG/0.5 ML VIAL.NEB NEB SCH ×4 (07:35→19:37)
--- NOTE | 2017-02-06 08:20 | NUR ---
SEDATION VACATION-DIPRIVAN TITRATED PER PROTOCOL, PT ABLE TO FOLLOW SIMPLE COMMANDS, PT ABLE TO MOVE UPPER EXTREMITIES, PT SUCTIONED, ORAL CARE GIVEN, PT REPOSITIONED, DIPRIVAN WILL BE RESTARTED PER PROTOCOL FOR PT SAFETY
[2017-02-06] MEDS: IV NS 0.9% 100 ML IV PRN (08:32)
--- NOTE | 2017-02-06 08:36 | NUR ---
ICU NOTE- DR. ESPOSITO MADE ROUNDS. AWARE ALL OF LABS AND RESULTS, AWARE OF BLOOD NOT READY, NO NEW ORDERS AT THIS TIME
[2017-02-06] MEDS: PREGABALIN 100 MG CAPSULE GT SCH ×3 (09:00→16:41)
[2017-02-06] MEDS: CARVEDILOL 6.25 MG TABLET GT SCH ×2 (09:00→16:41)
[2017-02-06] MEDS: PROSOURCE / PROSTAT (PYXIS) 30 ML UDC GT SCH ×2 (09:00→16:42)
[2017-02-06] MEDS: DILTIAZEM HCL 30 MG TABLET GT SCH ×4 (09:00→21:28)
[2017-02-06] MEDS: ACIDOPHILUS/BULGARICUS 1 EACH TAB.CHEW GT SCH ×2 (09:00→16:41)
[2017-02-06] MEDS: Z GUARD REMEDY 2 OZ OINT TP SCH ×2 (09:32→21:29)
[2017-02-06] MEDS: PANTOPRAZOLE 40 MG VIAL IV SCH (09:32)
--- NOTE | 2017-02-06 09:32 | NUR ---
ICU NOTE- RESTARTED DIPRIVAN PER PROTOCOL, PT IS BITING ON ETT, ATTEMPTING TO PULLED OUT ETT, RESTARTED FOR PT COMFORT
--- NOTE | 2017-02-06 15:03 | NUR ---
ICU NOTE- SON IS AT BEDSIDE, UPDATED, ALL QUESTIONS AND CONCERNS ANSWERED
--- NOTE | 2017-02-06 15:36 | NUR ---
ICU NOTE- TRANSFUSING 1 UNIT PRBC, VVS, WILL MONITOR CLOSELY
--- NOTE | 2017-02-06 18:10 | NUR ---
ICU NOTE- 1 UNIT PRBC UNIT INFUSED, VVS.
--- NOTE | 2017-02-06 18:51 | NUR ---
ICU NOTE- 2 UNIT OF PRBC INFUSING NOW, VVS.
[2017-02-06] MEDS: DONEPEZIL 5 MG TABLET GT SCH (21:29)
[2017-02-06] MEDS: FAMOTIDINE (20 MG) 20 MG TABLET GT SCH (21:29)
--- NOTE | 2017-02-06 21:30 | NUR ---
ICU/SENIOR SUPPORT ENGINEER SECOND UNIT OF BLOOD COMPLETED, ORDER FOR H&H PLACED IN THE COMPUTED AWAIT RESULTS.
[2017-02-07] VITALS (49 sets, daily range): BP systolic 124–180; BP diastolic 45–95
--- NOTE | 2017-02-07 00:10 | NUR ---
ICU/HYDRATE THICKENER OPERATOR H&H WAS DONE NOW .3 FROM A LOW 6.9. PT IS OK TO GO TO SURGERY, AND IS NPO SHOULD SURGEON WANT TO GO TO SURGERY.
[2017-02-07 00:11] LABS: HEMATOCRIT 31 % (33-45); HEMOGLOBIN 10.3 g/dL (11.5-14.8); LYMPHOCYTES # (AUTO) 0.1 /CMM (0.8-4.8); LYMPHOCYTES % (AUTO) 1.3 % (20.0-44.0); MEAN CORPUSCULAR HEMOGLOBIN 30 PG (26.0-33.0); MEAN CORPUSCULAR HGB CONC 33 g/dl (31.0-36.0); MEAN CORPUSCULAR VOLUME 91 fL (82-100); MONOCYTES # (AUTO) 0.2 /CMM (0.1-1.30); MONOCYTES % (AUTO) 2.3 % (2.0-12.0); NEUTROPHILS # (AUTO) 9.7 /CMM (1.8-8.9); NEUTROPHILS % (AUTO) 96.4 % (43.0-81.0); PLATELET COUNT (AUTO) 100 /CMM (150-450); RDW COEFFICIENT OF VARIATION 17.6 (11.5-15.0); RED BLOOD CELL COUNT(AUTO) 3.43 MIL/uL (4.0-5.2)
[2017-02-07] MEDS: methylPREDNISolone SOD SUCC 40 MG/ML VIAL IV SCH ×4 (00:11→17:04)
[2017-02-07 01:50] LABS: BAND % (MANUAL) 9 % (0.0-5.0); LYMPHOCYTES % (MANUAL) 3 % (16-48); MONOCYTES % (MANUAL) 4 % (0-11.0); NEUTROPHILS % (MANUAL) 84 (42-76)
--- NOTE | 2017-02-07 02:30 | NUR ---
ICU/PRESS CLEANER PT WAS GIVEN AM CARE ALONG WITH ORAL CARE. PT TOLERATED THIS WELL, PT REMAINS ON CURRENT VENT SETTINGS. PT WAS TURNED AND REPOSITIONED FOR COMFORT AND CARE.
[2017-02-07] MEDS: PROPOFOL 100 ML IV PRN (02:53)
[2017-02-07] MEDS: IV NS 0.9% 100 ML IV PRN (02:54)
--- NOTE | 2017-02-07 04:20 | NUR ---
ICU/SOFTWARE REVERSE ENGINEER AM LABS WERE DRAWN, AWAIT LAB RESULTS.
[2017-02-07 05:04] LABS: BASOPHILS # (AUTO) 0.1 /CMM (0.0-0.2); BASOPHILS % (AUTO) 0.9 % (0.0-2.0); EOSINOPHILS % (AUTO) 0.1 % (0.0-6.0); HEMATOCRIT 32 % (33-45); HEMOGLOBIN 10.3 g/dL (11.5-14.8); LYMPHOCYTES # (AUTO) 0.1 /CMM (0.8-4.8); LYMPHOCYTES % (AUTO) 1.2 % (20.0-44.0); MEAN CORPUSCULAR HEMOGLOBIN 30 PG (26.0-33.0); MEAN CORPUSCULAR HGB CONC 33 g/dl (31.0-36.0); MEAN CORPUSCULAR VOLUME 91 fL (82-100); MONOCYTES # (AUTO) 0.3 /CMM (0.1-1.30); MONOCYTES % (AUTO) 3.1 % (2.0-12.0); NEUTROPHILS # (AUTO) 9.1 /CMM (1.8-8.9); NEUTROPHILS % (AUTO) 94.7 % (43.0-81.0); PLATELET COUNT (AUTO) 97 /CMM (150-450); RDW COEFFICIENT OF VARIATION 17.7 (11.5-15.0); RED BLOOD CELL COUNT(AUTO) 3.47 MIL/uL (4.0-5.2); WHITE BLOOD COUNT (AUTO) 9.6 K/uL (4.3-11.0)
[2017-02-07 05:18] LABS: CARBON DIOXIDE 33 mmol/L (21-32); CHLORIDE 109 mmol/L (98-107); CREATININE 0.5 mg/dL (0.6-1.3); GLUCOSE 186 mg/dL (74-106); POTASSIUM 3.9 mmol/L (3.5-5.1); SODIUM SERUM 146 mmol/L (136-145); UREA NITROGEN, BLOOD 34 mg/dL (7-18)
[2017-02-07 06:15] LABS: BAND % (MANUAL) 12 % (0.0-5.0); LYMPHOCYTES % (MANUAL) 2 % (16-48); METAMYELOCYTES % 1 % (0-0); MONOCYTES % (MANUAL) 4 % (0-11.0); NEUTROPHILS % (MANUAL) 81 (42-76)
[2017-02-07] MEDS: LEVOTHYROXINE SODIUM 50 MCG TABLET GT SCH (07:30)
--- NOTE | 2017-02-07 07:45 | NUR ---
ICU/RN - Initial Notes Received pt calm and cooperative on Diprivan @ 10mcg/kg/min. Orally intubated to mechanical vent with settings as ordered. No s/s of pain or discomfort. OG tube kept clamped, pt kept NPO as ordered. Lujan catheter intact draining urine to gravity. Safety and comfort measures in place. Will continue to monitor pt closely.
[2017-02-07 08:02] LABS: ABG BASE EXCESS 7.2 mmol/L; ABG OXYGEN SATURATION 96.5 % (92.0-98.5); ABG PCO2 45.2 mmHg (35.0-45.0); ABG PH 7.465 (7.350-7.450); ABG PO2 95.2 mmHg (75.0-100.0); AaDO2 65.6 mmHg; COHb 0.3 % (0.5-1.5); MetHb 0.3 % (0.0-1.5); O2Hb 95.9 % (94.0-97.0); SITE, ABG Right Radial
[2017-02-07] MEDS: IPRATROPIUM NEB FS 0.5 MG/2.5 ML AMPUL.NEB NEB SCH ×4 (08:21→20:09)
[2017-02-07] MEDS: ALBUTEROL FS 2.5 MG/0.5 ML VIAL.NEB NEB SCH ×4 (08:21→20:09)
[2017-02-07] MEDS: ACIDOPHILUS/BULGARICUS 1 EACH TAB.CHEW GT SCH ×2 (09:00→16:54)
[2017-02-07] MEDS: CARVEDILOL 6.25 MG TABLET GT SCH ×2 (09:00→16:54)
[2017-02-07] MEDS: DILTIAZEM HCL 30 MG TABLET GT SCH ×4 (09:00→21:27)
[2017-02-07] MEDS: PROSOURCE / PROSTAT (PYXIS) 30 ML UDC GT SCH ×2 (09:00→16:54)
[2017-02-07] MEDS: PREGABALIN 100 MG CAPSULE GT SCH ×3 (09:00→16:54)
--- NOTE | 2017-02-07 09:00 | NUR ---
ICU/RN - Notes Call made out to Dr Martines and Dr Garcia's office to find out if plans for surgery (Tracheostomy and PEG placement) for today. Pt is kept NPO at this time.
[2017-02-07] MEDS: Z GUARD REMEDY 2 OZ OINT TP SCH ×2 (09:18→21:28)
[2017-02-07] MEDS: PANTOPRAZOLE 40 MG VIAL IV SCH (09:18)
--- NOTE | 2017-02-07 10:00 | NUR ---
ICU/RN - Sedation Vacation Pt calm and cooperative on Diprivan gtt @ 10mcg/kg/min. Diprivan titrated off for sedation vacation at 0915. Pt anxious and biting down ETT. Pt placed back on Diprivan @ 10 mcg/kg/min to ensure comfort as pt is intubated. Awaiting trach placement this afternoon with Dr Martines.
[2017-02-07] MEDS ORDERED: LIDOCAINE 2%-EPI 1:200,000 20 ML VIAL IJ ONE (13:22)
--- NOTE | 2017-02-07 13:24 | NUR ---
ICU/RN - Notes Pt's son Caesar at bedside. Updated on plan of care.
[2017-02-07] MEDS ORDERED: ROCURONIUM BROMIDE 50 MG/5 ML ONE (13:28)
[2017-02-07] MEDS ORDERED: FENTANYL PF 100MCG/2ML AMPUL ONE (13:28)
--- NOTE | 2017-02-07 13:45 | NUR ---
ICU/RN - Notes Pt taken to surgery for trach placement with Dr Martines.
--- NOTE | 2017-02-07 14:00 | NUR ---
RT PATIENT WAS TAKING TO SURGERY AND TRACHED. RETURNED TO ICU IN NO DISTRESS. CONT CURRENT PLAN OF CARE.
--- NOTE | 2017-02-07 14:05 | NUR ---
ICU/RN - Notes Pt received back from OR in stable condition. New trach noted with scant bleeding noted from surgical site. NG tube inserted by MD in OR to left nare, patent and intact. Will continue to monitor pt closely.
[2017-02-07] MEDS: hydrALAZINE HCL IV 20 MG VIAL IV PRN (15:10)
[2017-02-07] MEDS: FIBERSOURCE HN 1,000 ML BOTTLE GT PRN (15:27)
[2017-02-07] MEDS: MORPHINE SULFATE INJ 2 MG/ML DISP.SYRIN IV PRN ×2 (15:36→19:36)
--- NOTE | 2017-02-07 15:36 | NUR ---
ICU/RN - Notes Pt complains of pain from new trach site, facial grimacing and elevated BP. Administered Morphine 2mg IVP as ordered for PRN pain. Comfort measures in place. Will reassess pain accordingly.
[2017-02-07] MEDS: DONEPEZIL 5 MG TABLET GT SCH (21:27)
[2017-02-07] MEDS: FAMOTIDINE (20 MG) 20 MG TABLET GT SCH (21:27)
[2017-02-08] VITALS (46 sets, daily range): BP systolic 95–182; BP diastolic 32–80
[2017-02-08] MEDS: methylPREDNISolone SOD SUCC 40 MG/ML VIAL IV SCH ×5 (01:27→23:23)
[2017-02-08] MEDS: MORPHINE SULFATE INJ 2 MG/ML DISP.SYRIN IV PRN (04:47)
[2017-02-08 04:48] LABS: BASOPHILS # (AUTO) 0.1 /CMM (0.0-0.2); BASOPHILS % (AUTO) 0.6 % (0.0-2.0); EOSINOPHILS % (AUTO) 0.1 % (0.0-6.0); HEMATOCRIT 37 % (33-45); HEMOGLOBIN 12.1 g/dL (11.5-14.8); LYMPHOCYTES # (AUTO) 0.1 /CMM (0.8-4.8); LYMPHOCYTES % (AUTO) 1.1 % (20.0-44.0); MEAN CORPUSCULAR HEMOGLOBIN 30 PG (26.0-33.0); MEAN CORPUSCULAR HGB CONC 33 g/dl (31.0-36.0); MEAN CORPUSCULAR VOLUME 92 fL (82-100); MONOCYTES # (AUTO) 0.1 /CMM (0.1-1.30); MONOCYTES % (AUTO) 0.9 % (2.0-12.0); NEUTROPHILS # (AUTO) 13.2 /CMM (1.8-8.9); NEUTROPHILS % (AUTO) 97.3 % (43.0-81.0); PLATELET COUNT (AUTO) 106 /CMM (150-450); RDW COEFFICIENT OF VARIATION 17.8 (11.5-15.0); RED BLOOD CELL COUNT(AUTO) 4.07 MIL/uL (4.0-5.2); WHITE BLOOD COUNT (AUTO) 13.6 K/uL (4.3-11.0)
[2017-02-08 04:53] LABS: CALCIUM, SERUM 8.3 mg/dL (8.5-10.1); CARBON DIOXIDE 32 mmol/L (21-32); CHLORIDE 109 mmol/L (98-107); CREATININE 0.7 mg/dL (0.6-1.3); GLUCOSE 288 mg/dL (74-106); POTASSIUM 3.8 mmol/L (3.5-5.1); SODIUM SERUM 147 mmol/L (136-145); UREA NITROGEN, BLOOD 38 mg/dL (7-18)
--- NOTE | 2017-02-08 06:47 | NUR ---
RN NOTE PT REMAINS IN NO ACUTE DISTRESS IN BED. PT DID NOT HAVE ANY SIGNIFICANT CHANGE IN CONDITION DURING SHIFT. ALL NEEDS MET, ALL ORDERS CARRIED OUT. WILL ENDORSE CARE TO AM RN FOR CONTINUITY OF CARE. PT TOLERATED VENT SETTING WELL.
[2017-02-08] MEDS: hydrALAZINE HCL IV 20 MG VIAL IV PRN (07:07)
--- NOTE | 2017-02-08 07:45 | NUR ---
ICU/RN - Initial Notes Received pt awake, alert to self. Denies pain or discomfort. Trach to mechanical vent with settings as ordered. Scant amount of blood draining from new trach site. Left nare NG tube kept clamped, pt kept NPO as ordered. Pt for PEG placement this morning. Lujan catheter intact draining urine to gravity. Safety and comfort measures in place. Will continue to monitor pt closely.
[2017-02-08] MEDS: IPRATROPIUM NEB FS 0.5 MG/2.5 ML AMPUL.NEB NEB SCH ×4 (07:59→20:15)
[2017-02-08] MEDS: ALBUTEROL FS 2.5 MG/0.5 ML VIAL.NEB NEB SCH ×4 (07:59→20:15)
[2017-02-08] MEDS: PANTOPRAZOLE 40 MG VIAL IV SCH (08:40)
[2017-02-08] MEDS: Z GUARD REMEDY 2 OZ OINT TP SCH ×2 (08:40→20:28)
--- NOTE | 2017-02-08 09:15 | NUR ---
ICU/RN - Notes PEG placement done at bedside by Dr Garcia and OR team. Pt tolerated surgery well. Per MD, may use GT for meds and resume tube feedings at 1600 today.
[2017-02-08] MEDS: PROSOURCE / PROSTAT (PYXIS) 30 ML UDC GT SCH ×2 (09:29→18:23)
[2017-02-08] MEDS: ASCORBIC ACID 500 MG TABLET PO SCH (09:29)
[2017-02-08] MEDS: LEVOTHYROXINE SODIUM 50 MCG TABLET GT SCH (09:30)
[2017-02-08] MEDS: PREGABALIN 100 MG CAPSULE GT SCH ×3 (09:30→18:25)
[2017-02-08] MEDS: MULTIVITAMINS,THERAGRAN 1 UDTAB TABLET PO SCH (09:30)
[2017-02-08] MEDS: ACIDOPHILUS/BULGARICUS 1 EACH TAB.CHEW GT SCH ×2 (09:30→18:23)
[2017-02-08] MEDS: CARVEDILOL 6.25 MG TABLET GT SCH ×2 (09:33→18:23)
[2017-02-08] MEDS: DILTIAZEM HCL 30 MG TABLET GT SCH ×5 (09:33→22:45)
[2017-02-08] MEDS: FIBERSOURCE HN 1,000 ML BOTTLE GT PRN (18:22)
--- NOTE | 2017-02-08 18:25 | NUR ---
ICU/RN - Notes G-tube feeding started as ordered. Will monitor for tolerance/residuals.
[2017-02-08] MEDS: LORAZEPAM INJ 2 MG/ML VIAL IV PRN (18:48)
--- NOTE | 2017-02-08 18:51 | NUR ---
ICU/RN - Notes Pt complains of anxiousness, administered Ativan 1mg IVP as ordered for PRN anxiety. Will continue to monitor.
--- NOTE | 2017-02-08 19:30 | NUR ---
GLASS FINISHER INITIAL NOTE RECEIVED REPORT FROM HUA BLACKWELL. PT IN BED, AWAKE. TRACHED ON VENT AC 12 TV 400 FIO2 30% PEEP 5. LUNG SOUNDS RHONCHI. BOWEL SOUNDS PRESENT. KHOURY INTACT AND DRAINING ERIKA URINE. PEG INTACT, FIBERSOURCE RUNNING AT 40CC/HR WITH 100CC RESIDUAL, WILL RE-ASSESS. IV PATENT AND INTACT. BED IN LOW LOCKED POSITION. WILL CONTINUE TO MONITOR.
[2017-02-08] MEDS: FAMOTIDINE (20 MG) 20 MG TABLET GT SCH (21:38)
[2017-02-08] MEDS: DONEPEZIL 5 MG TABLET GT SCH (21:38)
--- NOTE | 2017-02-08 22:53 | NUR ---
RECYCLE COORDINATOR AT 2100 HELD CARDIZEM DUE TO LOW BP, UN DID THAT ACTION NOW. ADMINISTERED CARDIZEM FOR BP 131/40. WILL CONTINUE TO MONITOR.
[2017-02-09] VITALS (51 sets, daily range): BP systolic 113–174; BP diastolic 38–102
--- NOTE | 2017-02-09 01:00 | NUR ---
VISCERA WASHER PT CLEANED AND REPOSITIONED FOR COMFORT. WILL CONTINUE TO MONITOR.
[2017-02-09] MEDS: LORAZEPAM INJ 2 MG/ML VIAL IV PRN (01:11)
[2017-02-09 04:39] LABS: EOSINOPHILS % (AUTO) 0.5 % (0.0-6.0); HEMATOCRIT 34 % (33-45); HEMOGLOBIN 11.1 g/dL (11.5-14.8); LYMPHOCYTES # (AUTO) 0.2 /CMM (0.8-4.8); LYMPHOCYTES % (AUTO) 2.3 % (20.0-44.0); MEAN CORPUSCULAR HEMOGLOBIN 31 PG (26.0-33.0); MEAN CORPUSCULAR HGB CONC 33 g/dl (31.0-36.0); MEAN CORPUSCULAR VOLUME 92 fL (82-100); MONOCYTES # (AUTO) 0.1 /CMM (0.1-1.30); MONOCYTES % (AUTO) 0.9 % (2.0-12.0); NEUTROPHILS # (AUTO) 8.5 /CMM (1.8-8.9); NEUTROPHILS % (AUTO) 96.3 % (43.0-81.0); PLATELET COUNT (AUTO) 94 /CMM (150-450); RDW COEFFICIENT OF VARIATION 17.4 (11.5-15.0); RED BLOOD CELL COUNT(AUTO) 3.65 MIL/uL (4.0-5.2); WHITE BLOOD COUNT (AUTO) 8.8 K/uL (4.3-11.0)
[2017-02-09 04:52] LABS: CALCIUM, SERUM 8.4 mg/dL (8.5-10.1); CARBON DIOXIDE 31 mmol/L (21-32); CHLORIDE 113 mmol/L (98-107); CREATININE 0.6 mg/dL (0.6-1.3); GLUCOSE 255 mg/dL (74-106); POTASSIUM 3.5 mmol/L (3.5-5.1); SODIUM SERUM 151 mmol/L (136-145); UREA NITROGEN, BLOOD 40 mg/dL (7-18)
[2017-02-09] MEDS: methylPREDNISolone SOD SUCC 40 MG/ML VIAL IV SCH ×4 (05:31→23:40)
[2017-02-09 05:46] LABS: BAND % (MANUAL) 51 % (0.0-5.0); LYMPHOCYTES % (MANUAL) 1 % (16-48); METAMYELOCYTES % 1 % (0-0); NEUTROPHILS % (MANUAL) 46 (42-76); REACTIVE LYMPHOCYTES 1 % (0-0)
--- NOTE | 2017-02-09 07:05 | NUR ---
RN INITIAL NOTES RECEIVED PT AWAKE, A/OX1. TRACH IN PLACE. TOLERATING VENT WELL. NO RESPIRATORY DISTRESS NOTED. NO SOB NOTED. NO SIGNS OF PAIN NOTED. HOB ELEVATED. GT IN PLACE. ON FIBERSOURCE AT 40ML/HR. WILL CLOSELY MONITOR RESIDUALS. VAN MIDLINE IN PLACE. FC IN PLACE. NO HEMATURIA NOTED. BLE ELEVATED. WILL MONITOR
[2017-02-09] MEDS: IPRATROPIUM NEB FS 0.5 MG/2.5 ML AMPUL.NEB NEB SCH ×4 (08:03→19:40)
[2017-02-09] MEDS: ALBUTEROL FS 2.5 MG/0.5 ML VIAL.NEB NEB SCH ×4 (08:03→19:40)
[2017-02-09] MEDS: PROSOURCE / PROSTAT (PYXIS) 30 ML UDC GT SCH ×2 (08:07→16:16)
[2017-02-09] MEDS: PREGABALIN 100 MG CAPSULE GT SCH ×3 (08:07→16:16)
[2017-02-09] MEDS: LEVOTHYROXINE SODIUM 50 MCG TABLET GT SCH (08:07)
[2017-02-09] MEDS: ASCORBIC ACID 500 MG TABLET PO SCH (08:07)
[2017-02-09] MEDS: ACIDOPHILUS/BULGARICUS 1 EACH TAB.CHEW GT SCH ×2 (08:08→16:16)
[2017-02-09] MEDS: CARVEDILOL 6.25 MG TABLET GT SCH ×2 (08:08→16:16)
[2017-02-09] MEDS: PANTOPRAZOLE 40 MG VIAL IV SCH (08:08)
[2017-02-09] MEDS: Z GUARD REMEDY 2 OZ OINT TP SCH ×2 (08:08→21:46)
[2017-02-09] MEDS: MULTIVITAMINS,THERAGRAN 1 UDTAB TABLET PO SCH (08:08)
[2017-02-09] MEDS: DILTIAZEM HCL 30 MG TABLET GT SCH ×4 (08:09→21:45)
--- NOTE | 2017-02-09 10:35 | NUR ---
RN NOTES SEEN AND EXAMINED BY DR. GUPTA. AWARE OF CURRENT LAB VALUES AND CXR RESULT. PT TOLERATES VENT WELL. TRACH IN PLACE. NO RESPIRATORY DISTRESS NOTED. NO SOB NOTED. KEPT HOB ELEVATED. PER MD, PT OK TO BE DOWNGRADED, WILL MONITOR.
--- NOTE | 2017-02-09 11:11 | NUR ---
RN NOTES SEEN AND EXAMINED BY RONAN GONZALES. AWARE OF PT'S HIGH GTF RESIDUALS, USUALLY >100ML. PT IS ON FIBERSOURCE AT 40ML/HR. MEDS REVIEWED AND ORDERED REGLAN. NOTED AND CARRIED OUT. WILL MONITOR
[2017-02-09] MEDS: METOCLOPRAMIDE HCL 10 MG/2 ML VIAL IV SCH ×3 (11:25→23:40)
--- NOTE | 2017-02-09 12:10 | NUR ---
RN NOTES SEEN AND EXAMINED BY MADELIN PATEL NP. AWARE OF CURRENT LAB VALUES: WBC 8.8, HGB 11.1, HCT 34, PLATELET 94. NO SIGNS OF ACTIVE BLEEDING NOTED. SODIUM 151, POTASSIUM 3.5, BUN 40, CREA 0.6. ALSO AWARE OF CXR RESULT. ORDERED LABS IN AM. WILL MONITOR.
[2017-02-09] MEDS: FIBERSOURCE HN 1,000 ML BOTTLE GT PRN (14:43)
--- NOTE | 2017-02-09 18:34 | NUR ---
RN CLOSING NOTES PT REMAINS STABLE. NO SIGNIFICANT CHANGES. TOLERATES VENT WELL. NO RESPIRATORY DISTRESS NOTED. KEPT HOB ELEVATED. NO SIGNS OF PAIN NOTED. GT IN PLACE. FC IN PLACE. KEPT CLEAN AND DRY. REPOSITIONED Q2. KEPT BLE ELEVATED. KEPT COMFORTABLE. WILL ENDORSE FOR CONTINUITY OF CARE.
--- NOTE | 2017-02-09 19:30 | NUR ---
TEMPERATURE CONTROL INSPECTOR INITIAL NOTE RECEIVED REPORT FROM CATHERINE BLACKWELL. PT IN BED. ASLEEP BUT EASILY AROUSABLE. VENT TRACH, VENT SETTING AC 12, TV 400, FI02 30%, PEEP 5. LUNG SOUNDS RHONCHI. BOWEL SOUNDS PRESENT, GT PATENT AND INTACT. FEEDING RUNNING AT 40CC/HR WITH RESIDUAL OF 100CC. WILL CONTINUE TO MONITOR. KHOURY INTACT AND DRAINING, PINK TINGED URINE. PULSES PRESENT. IV PATENT AND INTACT. REPOSITIONED FOR COMFORT. ORAL CARE PROVIDED. WILL CONTINUE TO MONITOR.
--- NOTE | 2017-02-09 20:13 | NUR ---
PT RECEIVED TRACHED ON VENT. SHLY 8 ON AC MODE. PT IS AWAKE FOLLOWS COMMANDS. TOLERATING VENT SETTINGS. SX'D FOR SML AMT OF PALE SECRETIONS. VENT ALARMS SET AND AUDIBLE. AMBU BAG AT BEDSIDE. VENT PLUGGED INTO RED OUTLET. WILL CONTINUE TO MONITOR. Addendum: 02/09/17 at 2015 by IRENE REYES RT Amended: Links added.
--- NOTE | 2017-02-09 20:45 | NUR ---
PRINT SHOP ASSISTANT REPORT GIVEN TO MARGARITA BLACKWELL. WILL TRANSPORT WITH RT. PT IS STABLE FOR TRANSFER AT THIS TIME.
--- NOTE | 2017-02-09 21:12 | NUR ---
PT TRANSFERRED TO 112-1.
--- NOTE | 2017-02-09 21:15 | NUR ---
WORKERS' COMPENSATION CLAIMS SUPERVISOR OPENING NOTES RECEIVED PATIENT FROM ICU TRANSFER TO ROOM 112-1. REPORT TAKEN FROM ELVIRA BLACKWELL. PATIENT A/A/O X2-3, NON-VERBAL BUT MOUTHS WORDS. TRACH SHILEY #8 INTACT W/ VENT SETTINGS AC 12, TV 400, FIO2 30%, PEEP 5. TOLERATING WELL. NO S/S OF SOB OR RESPIRATORY DISTRESS. ON TELE AV PACING IN THE 70S. LEFT UPPER ARM MIDLINE INTACT & PATENT W/ DRESSING CDI. G-TUBE INTACT & FLUSHING WELL W/ FIBERSOURCE @ 40 ML/HR. RESIDUAL NOTED & GTF HELD @ THIS TIME. KHOURY CATH INTACT & DRAINING YELLOW URINE, SOME SEDIMENTS NOTED. NO S/S OF PAIN OR DISCOMFORT @ THIS TIME. PATIENT REPOSITIONED & MADE COMFORTABLE. SAFETY MEASURES IN PLACE W/ SIDE RAILS UP, BED LOCKED & IN LOWEST POSITION & CALL LIGHT WITHIN REACH. WILL CONTINUE TO MONITOR.
[2017-02-09] MEDS: DONEPEZIL 5 MG TABLET GT SCH (21:45)
[2017-02-09] MEDS: FAMOTIDINE (20 MG) 20 MG TABLET GT SCH (21:45)
[2017-02-10] VITALS: BP 128/42
[2017-02-10 04:00] VITALS: BP 153/46
[2017-02-10] MEDS: methylPREDNISolone SOD SUCC 40 MG/ML VIAL IV SCH ×4 (06:00→23:52)
[2017-02-10] MEDS: METOCLOPRAMIDE HCL 10 MG/2 ML VIAL IV SCH ×4 (06:00→16:20)
[2017-02-10 06:53] LABS: CALCIUM, SERUM 8.5 mg/dL (8.5-10.1); CARBON DIOXIDE 34 mmol/L (21-32); CHLORIDE 113 mmol/L (98-107); CREATININE 0.6 mg/dL (0.6-1.3); GLUCOSE 275 mg/dL (74-106); POTASSIUM 3.7 mmol/L (3.5-5.1); SODIUM SERUM 151 mmol/L (136-145); UREA NITROGEN, BLOOD 39 mg/dL (7-18)
--- NOTE | 2017-02-10 07:30 | NUR ---
RN STELLA RECEIVED PATIENT ON MECHANICAL VENTILATORY SUPPORT SATURATING WELL AFEBRILE AWAKE ALERT X 2 SUCTIONED SECRETION OVER THE TRACH ARE SEROSANGUINEOUS TO BROWNISH IN COLOR SWOLLEN UPPER EXTREMITIES NOTED WITH SMALL BLISTERS NOTED MAINTAINED PATIENT ON TUBE FEEDING MONITORED RESIDUAL PATIENT HAS SEVERE WEAKNESS ON ALL EXTREMITIES PLACED PILLOW OVER BONY PROMINENCE MONITORED URINE OUTPUT
[2017-02-10 08:00] VITALS: BP 131/50
[2017-02-10] MEDS: ACIDOPHILUS/BULGARICUS 1 EACH TAB.CHEW GT SCH ×2 (08:43→16:20)
[2017-02-10] MEDS: DILTIAZEM HCL 30 MG TABLET GT SCH ×4 (08:43→21:46)
[2017-02-10] MEDS: PREGABALIN 100 MG CAPSULE GT SCH ×3 (08:43→16:20)
[2017-02-10] MEDS: LEVOTHYROXINE SODIUM 50 MCG TABLET GT SCH (08:43)
[2017-02-10] MEDS: ASCORBIC ACID 500 MG TABLET PO SCH (08:43)
[2017-02-10] MEDS: PANTOPRAZOLE 40 MG VIAL IV SCH (08:43)
[2017-02-10] MEDS: MULTIVITAMINS,THERAGRAN 1 UDTAB TABLET PO SCH (08:43)
[2017-02-10] MEDS: Z GUARD REMEDY 2 OZ OINT TP SCH ×2 (08:44→21:47)
[2017-02-10] MEDS: PROSOURCE / PROSTAT (PYXIS) 30 ML UDC GT SCH ×2 (08:45→16:20)
[2017-02-10] MEDS: CARVEDILOL 6.25 MG TABLET GT SCH ×2 (08:49→16:18)
[2017-02-10] MEDS: IPRATROPIUM NEB FS 0.5 MG/2.5 ML AMPUL.NEB NEB SCH ×2 (08:53→20:03)
[2017-02-10] MEDS: ALBUTEROL FS 2.5 MG/0.5 ML VIAL.NEB NEB SCH ×2 (08:54→20:03)
[2017-02-10] MEDS ORDERED: METOCLOPRAMIDE HCL 10 MG/2 ML VIAL IV SCH (11:30)
[2017-02-10 12:00] VITALS: BP_SYST 109; BP_SYST 134; BP_DIAS 50; BP_DIAS 67
--- NOTE | 2017-02-10 12:00 | NUR ---
RN STELLA STILL WITH HELD FEEDING DUE TO HIGH RESIDUAL INFORMED MD AND ORDERED TO INCREASE MEDICATION TO AID DIGESTION
[2017-02-10 16:00] VITALS: BP_SYST 147; BP_SYST 160; BP_DIAS 50; BP_DIAS 87
[2017-02-10] MEDS: MORPHINE SULFATE INJ 2 MG/ML DISP.SYRIN IV PRN (16:36)
--- NOTE | 2017-02-10 18:14 | NUR ---
RN STELLA FEEDING STILL ON HOLD WILL RESUME FEEDING AT THE NEXT SHIFT, WILL START AT A SLOW RATE MONITORED CLOSELY ENDORSED TO NOD
[2017-02-10 20:00] VITALS: BP_SYST 123; BP_SYST 124; BP_DIAS 56; BP_DIAS 74
--- NOTE | 2017-02-10 20:00 | NUR ---
TELE 1 RN NOTE PT IN BED ASLEEP, AROUSABLE. A/O X 2, NO SOB, NO DISTRESS OR DISCOMFORT NOTED. DENIES PAIN. ON VENT/TRACH TOLERATING THE SETTINGS WELL. SUCTIONED HER NEEDED. ON TELE AV PACING HR 70. F/C INTACT AND PATENT DRAINING YELLOWISH COLOR URINE. GTF IS ON HOLD DUE TO HIGH RESIDUAL GREATER THAN 150. DR VELASQUEZ VISITED THE PT AND ALSO INFORMED HIM REGARDING HIGH RESIDUAL. PER MD START FEEDING WHEN RESIDUAL IS LOW. VAN WITH MIDLINE INTACT AND PATENT. REPOSITION HER FOR SKIN MANAGEMENT. KEPT HER DRY AND CLEAN. ALL NEEDS ATTENDED. SIDE RAILS UP X 3 AND CALL LIGHT WITHIN REACH. VSS. CONTINUE TO MONITOR HER.
[2017-02-10] MEDS: DONEPEZIL 5 MG TABLET GT SCH (21:46)
[2017-02-10] MEDS: FAMOTIDINE (20 MG) 20 MG TABLET GT SCH (21:46)
--- NOTE | 2017-02-10 22:42 | NUR ---
TELE 1 RN NOTE REPORT GIVEN TO NURSE KOCH FOR CONTINUE TO CARE.
--- NOTE | 2017-02-10 22:45 | NUR ---
CONTROL SUPERVISOR NOTE RECEIVED REPORT FROM NICOLE BLACKWELL. WILL CONTINUE TO MONITOR.
[2017-02-11] VITALS (8 sets, daily range): BP systolic 108–150; BP diastolic 36–80
[2017-02-11] MEDS: methylPREDNISolone SOD SUCC 40 MG/ML VIAL IV SCH ×3 (05:12→22:06)
--- NOTE | 2017-02-11 07:05 | NUR ---
RN INITIAL NOTE PATIENT RECEIVED IN BED SLEEPING. PATIENT IS NON VERBAL. HAS TRACH SHILEY #8, TOLERATING VENT SETTINGS WELL. NO S/S OF RESPIRATORY DISTRESS OR SOB. AV PACED ON TELE MONITOR. HEART RATE:70. KHOURY DRAINING TO GRAVITY. GTUBE, FLUSHED, PATENT, PLACEMENT VERIFIED. PATIENT HAS BEEN HAVING HIGH RESIDUALS. WILL CONTINUE TO MONITOR. SKIN IS WARM AND DRY TO TOUCH. IV SITE FLUSHED, PATENT. SAFETY PRECAUTIONS IMPLEMENTED. BED IN LOCKED, LOW POSITION WITH TWO SIDE RAILS UP. WILL CONTINUE TO MONITOR.
--- NOTE | 2017-02-11 07:17 | NUR ---
MANAGER SUPPLIER CLOSING NOTE PT REMAINED STABLE DURING SHIFT. NO ACUTE DISTRESS NOTED. VENT SETTINGS WELL TOLERATED. KEPT CLEAN AND DRY. ALL NEEDS ATTENDED TO PROMPTLY. HOB ELEVATED. FEEDING HELD D/T HIGH RESIDUALS OF ABOVE 100. AT 6AM NO RESIDUALS NOTED. WILL ENDORSE TO NEXT SHIFT FOR CONTINUITY OF CARE.
[2017-02-11] MEDS: ALBUTEROL FS 2.5 MG/0.5 ML VIAL.NEB NEB SCH ×4 (07:36→20:11)
[2017-02-11] MEDS: IPRATROPIUM NEB FS 0.5 MG/2.5 ML AMPUL.NEB NEB SCH ×4 (07:36→20:11)
[2017-02-11] MEDS: PANTOPRAZOLE 40 MG VIAL IV SCH (08:12)
[2017-02-11] MEDS: PROSOURCE / PROSTAT (PYXIS) 30 ML UDC GT SCH ×2 (08:12→15:57)
[2017-02-11] MEDS: FIBERSOURCE HN 1,000 ML BOTTLE GT PRN (08:12)
[2017-02-11] MEDS: METOCLOPRAMIDE HCL 10 MG/2 ML VIAL IV SCH ×3 (08:13→15:54)
[2017-02-11] MEDS: PREGABALIN 100 MG CAPSULE GT SCH ×3 (08:13→15:54)
[2017-02-11] MEDS: LEVOTHYROXINE SODIUM 50 MCG TABLET GT SCH (08:13)
[2017-02-11] MEDS: ACIDOPHILUS/BULGARICUS 1 EACH TAB.CHEW GT SCH ×2 (08:13→15:54)
[2017-02-11] MEDS: ASCORBIC ACID 500 MG TABLET PO SCH (08:13)
[2017-02-11] MEDS: MULTIVITAMINS,THERAGRAN 1 UDTAB TABLET PO SCH (08:13)
[2017-02-11] MEDS: CARVEDILOL 6.25 MG TABLET GT SCH ×2 (08:14→15:55)
[2017-02-11] MEDS: DILTIAZEM HCL 30 MG TABLET GT SCH ×4 (08:14→22:08)
[2017-02-11] MEDS: Z GUARD REMEDY 2 OZ OINT TP SCH ×2 (08:15→22:19)
[2017-02-11] MEDS: LORAZEPAM INJ 2 MG/ML VIAL IV PRN (08:28)
[2017-02-11 09:55] LABS: BASOPHILS % (AUTO) 0.3 % (0.0-2.0); HEMATOCRIT 30 % (33-45); HEMOGLOBIN 9.8 g/dL (11.5-14.8); LYMPHOCYTES # (AUTO) 0.2 /CMM (0.8-4.8); LYMPHOCYTES % (AUTO) 3.1 % (20.0-44.0); MEAN CORPUSCULAR HEMOGLOBIN 30 PG (26.0-33.0); MEAN CORPUSCULAR HGB CONC 32 g/dl (31.0-36.0); MEAN CORPUSCULAR VOLUME 93 fL (82-100); MONOCYTES # (AUTO) 0.1 /CMM (0.1-1.30); MONOCYTES % (AUTO) 0.9 % (2.0-12.0); NEUTROPHILS # (AUTO) 6.6 /CMM (1.8-8.9); NEUTROPHILS % (AUTO) 95.7 % (43.0-81.0); PLATELET COUNT (AUTO) 66 /CMM (150-450); RDW COEFFICIENT OF VARIATION 17.4 (11.5-15.0); RED BLOOD CELL COUNT(AUTO) 3.25 MIL/uL (4.0-5.2); WHITE BLOOD COUNT (AUTO) 6.9 K/uL (4.3-11.0)
[2017-02-11 10:07] LABS: CALCIUM, SERUM 8.2 mg/dL (8.5-10.1); CARBON DIOXIDE 35 mmol/L (21-32); CHLORIDE 114 mmol/L (98-107); CREATININE 0.8 mg/dL (0.6-1.3); GLUCOSE 269 mg/dL (74-106); POTASSIUM 3.5 mmol/L (3.5-5.1); SODIUM SERUM 152 mmol/L (136-145); UREA NITROGEN, BLOOD 46 mg/dL (7-18)
[2017-02-11 11:15] LABS: BAND % (MANUAL) 12 % (0.0-5.0); LYMPHOCYTES % (MANUAL) 1 % (16-48); NEUTROPHILS % (MANUAL) 87 (42-76)
[2017-02-11] MEDS: IV 1/2NS 1000 ML 1,000 ML IV PRN (12:37)
[2017-02-11] MEDS: MORPHINE SULFATE INJ 2 MG/ML DISP.SYRIN IV PRN (15:54)
--- NOTE | 2017-02-11 19:20 | NUR ---
RN NOTES PT RESTING ON BED. WITH TRACH AND VENT SETTING TOLERATED WELL. CONNECTED TO VENT SETTING AC 12 TV 400 FIO2 30% PEEP5. SUCTIONED WITH YELLOWISH THICK SECRETION. NO ACUTE RESP DISTRESS. PT IS AOX2 RESPONSIVE TO STIMULI. TELE MONITOR REVEALS AV PACING HR 71 SATING 98% WITH IV SITE VAN MIDLINE RUNNING WITH 1/2 NS @ 80 CC/HR INTACT AND PATENT. WARMTH TO TOUCH.AFEBRILE. KHOURY CATH INTACT DRAINED WITH YELLOW COLOR URINE. TURNED AND REPOSITIONED PT COMFORTABLE. KEPT PT CLEAN AND DRY .WILL CONTINUE TO MONITOR.
--- NOTE | 2017-02-11 19:27 | NUR ---
RN CLOSING NOTE CARRIED OUT ALL MD ORDERS, PATIENTS NEEDS ANTICIPATED. WILL GIVE REPORT FOR KUSUM.
[2017-02-11] MEDS: FAMOTIDINE (20 MG) 20 MG TABLET GT SCH (22:06)
[2017-02-11] MEDS: DONEPEZIL 5 MG TABLET GT SCH (22:08)
[2017-02-12] VITALS: BP 134/57
[2017-02-12 04:00] VITALS: BP 130/57
--- NOTE | 2017-02-12 04:30 | NUR ---
RN NOTES PT HELD GTF DUE TO RESIDUAL OF 180 CC. WILL RECHECKED AFTER 2HOURS.
[2017-02-12] MEDS: methylPREDNISolone SOD SUCC 40 MG/ML VIAL IV SCH (05:42)
[2017-02-12] MEDS: IV 1/2NS 1000 ML 1,000 ML IV PRN ×2 (05:45→21:24)
--- NOTE | 2017-02-12 06:10 | NUR ---
RN NOTES RECHECKED RESIDUAL STILL 180 CC HELD FEEDING AND WILL FOLLOW UP TO MD REGARDING THE ORDER AND MEDS. PT ASLEEP WELL ON BED. RESPONSIVE TO STIMULI. KEPT PT CLEAN AND DRY. REPOSITIONED BED BATH DONE TOLERATED WELL TRACH AND VENT SETTING TOLERATED WELL. WILL ENDORSED CONTINUITY OF CARE TO AM NURSE.
[2017-02-12 06:53] LABS: HEMATOCRIT 35 % (33-45); HEMOGLOBIN 11.4 g/dL (11.5-14.8); LYMPHOCYTES # (AUTO) 0.1 /CMM (0.8-4.8); LYMPHOCYTES % (AUTO) 1.3 % (20.0-44.0); MEAN CORPUSCULAR HEMOGLOBIN 31 PG (26.0-33.0); MEAN CORPUSCULAR HGB CONC 33 g/dl (31.0-36.0); MEAN CORPUSCULAR VOLUME 93 fL (82-100); NEUTROPHILS # (AUTO) 8.8 /CMM (1.8-8.9); NEUTROPHILS % (AUTO) 98.7 % (43.0-81.0); PLATELET COUNT (AUTO) 61 /CMM (150-450); RDW COEFFICIENT OF VARIATION 16.7 (11.5-15.0); RED BLOOD CELL COUNT(AUTO) 3.72 MIL/uL (4.0-5.2); WHITE BLOOD COUNT (AUTO) 8.9 K/uL (4.3-11.0)
[2017-02-12 07:05] LABS: CALCIUM, SERUM 8.6 mg/dL (8.5-10.1); CARBON DIOXIDE 32 mmol/L (21-32); CHLORIDE 110 mmol/L (98-107); CREATININE 0.9 mg/dL (0.6-1.3); GLUCOSE 346 mg/dL (74-106); POTASSIUM 3.5 mmol/L (3.5-5.1); SODIUM SERUM 148 mmol/L (136-145); UREA NITROGEN, BLOOD 46 mg/dL (7-18)
[2017-02-12 08:00] VITALS: BP 145/54
[2017-02-12] MEDS: IPRATROPIUM NEB FS 0.5 MG/2.5 ML AMPUL.NEB NEB SCH ×4 (08:37→20:21)
[2017-02-12] MEDS: ALBUTEROL FS 2.5 MG/0.5 ML VIAL.NEB NEB SCH ×4 (08:38→20:21)
[2017-02-12 08:43] LABS: BAND % (MANUAL) 4 % (0.0-5.0); LYMPHOCYTES % (MANUAL) 1 % (16-48); MONOCYTES % (MANUAL) 3 % (0-11.0); NEUTROPHILS % (MANUAL) 92 (42-76)
[2017-02-12] MEDS: ACIDOPHILUS/BULGARICUS 1 EACH TAB.CHEW GT SCH ×2 (08:55→17:45)
[2017-02-12] MEDS: LEVOTHYROXINE SODIUM 50 MCG TABLET GT SCH (08:55)
[2017-02-12] MEDS: METOCLOPRAMIDE HCL 10 MG/2 ML VIAL IV SCH ×3 (08:55→17:45)
[2017-02-12] MEDS: ASCORBIC ACID 500 MG TABLET PO SCH (08:55)
[2017-02-12] MEDS: PREGABALIN 100 MG CAPSULE GT SCH ×3 (08:55→17:45)
[2017-02-12] MEDS: MULTIVITAMINS,THERAGRAN 1 UDTAB TABLET PO SCH (08:56)
[2017-02-12] MEDS: DILTIAZEM HCL 30 MG TABLET GT SCH ×4 (08:57→21:25)
[2017-02-12] MEDS: PROSOURCE / PROSTAT (PYXIS) 30 ML UDC GT SCH ×2 (08:57→17:45)
[2017-02-12] MEDS: PANTOPRAZOLE 40 MG VIAL IV SCH (08:57)
[2017-02-12] MEDS: Z GUARD REMEDY 2 OZ OINT TP SCH ×2 (08:58→21:23)
[2017-02-12] MEDS: CARVEDILOL 6.25 MG TABLET GT SCH ×2 (08:58→17:45)
--- NOTE | 2017-02-12 09:35 | NUR ---
RN NOTE PT WAS PUT ON COOL AEROSOL 28%, BUT PT HAD SHORTNESS OF BREATH AND WAS TRANSFERRED BACK TO [facility] VENTILATOR TO PREVIOUS SETTINGS. PT WAS MORE COMFORTABLE AFTER THAT. O2 SATURATION 100%. WILL CONTINUE TO MONITOR.
[2017-02-12 12:00] VITALS: BP 133/43
[2017-02-12] MEDS: FIBERSOURCE HN 1,000 ML BOTTLE GT PRN (12:51)
[2017-02-12 16:00] VITALS: BP 135/67
--- NOTE | 2017-02-12 17:38 | NUR ---
Trach pt received on mechanical vent, then placed on CA per MD order. Pt was placed back on AC mode per MD, tolerating current vent settings throughout the shift. Vent is plugged into a red outlet, alarms are set and audible, and BVM is at bedside. Addendum: 02/12/17 at 1740 by SABAS ISSA RT Amended: Links added.
[2017-02-12] MEDS: HYDROGEL DRESSING 90 GM TUBE TP SCH (17:46)
--- NOTE | 2017-02-12 19:15 | NUR ---
RN INITIAL NOTES RECEIVED PATIENT ON [facility] VENT SUPPORT WITH SETTINGS OF AC12,TV 400, FIO2 30% AND PEEP 5. PATIENT IS SATURATING AT 100% AND TOLERATING SETTINGS WELL, NO DISTRESS OBSERVED. TRACH SITE STILL WITH SUTURES IN PLACE. NOTED WITH THICK, PINK-TINGED SECRETION LEAKING FROM SURROUNDING OF THE SITE. GT CLAMPED AT THIS TIME, CHECKED RESIDUAL AND NOTED WITH 120cc OF GASTRIC RESIDUAL. PATIENT IS 100% AV PACING WITH HR OF 78. F/C IN PLACE AND DRAINING WITH CLOUDY, YELLOW URINE WITH SEDIMENTS AT THIS TIME. PATIENT REPOSITIONED, SAFETY AND COMFORT ENSURED. BED IN LOW AND LOCKED POSITION. WILL MONITOR CLOSELY.
--- NOTE | 2017-02-12 19:43 | NUR ---
RN CLOSING NOTE PT REMAINED STABLE, BUT HAD RESIDUALS THROUGHOUT THE DAY 80 ML- 110 ML-120ML -200ML. FEEDING HELD SINCE 1800. URINE PINK COLOR WITH SEDIMENTS. ADEQUATE OUTPUT, NO BM. ALL NEEDS MET, MEDS GIVEN ORDERED. KEPT CLEAN AND DRY, CALL LIGHT WITHIN REACH, WILL ENDORSE TO MANAGER MARKET INTELLIGENCE.
[2017-02-12 20:00] VITALS: BP 137/45
[2017-02-12] MEDS: DONEPEZIL 5 MG TABLET GT SCH (21:24)
[2017-02-12] MEDS: FAMOTIDINE (20 MG) 20 MG TABLET GT SCH (21:24)
[2017-02-13] VITALS: BP 122/65
[2017-02-13 04:00] VITALS: BP 122/45
--- NOTE | 2017-02-13 06:36 | NUR ---
RN CLOSING NOTES PATIENT WITH NO ACUTE CHANGE IN CONDITION OBSERVED OVERNIGHT. PATIENT TOLERATING CURRENT VENT SETTINGS, NO DISTRESS. AIRWAY KEPT CLEAR AND PATENT, SUCTIONED NEEDED. REMAINS AV PACING ON TELE MONITOR WITH HR OF 86. PATIENT NOTED WITH WEEPING EDEMA ON BUE, ELEVATED WITH PILLOWS AND KEPT CLEAN AND DRY. IVF ORDERED ON PATIENT'S VAN MIDLINE, INTACT AND PATENT. GT FEEDING HELD MOST OF THE NIGHT, PATIENT'S GASTRIC RESIDUAL STILL NOTED TO BE >150 WITH GT FLUSHES ADMINISTERED ORDERED. PATIENT'S FEEDING HOWEVER IS RESUMED AT THIS TIME, PRIOR TO RESUMPTION OF GT FEEDING, PATIENT'S GASTRIC RESIDUAL IS 50CC. HOB ELEVATED. ALL DUE MEDS GIVEN ORDERED. WOUND TREATMENT DONE. TRACH CARE DONE. PATIENT'S NEEDS ANTICIPATED AND MET. SAFETY AND COMFORT ENSURED. BED IN LOW AND LOCKED POSITION. WILL ENDORSE ACCORDINGLY FOR CONTINUITY OF CARE.
[2017-02-13] MEDS: IPRATROPIUM NEB FS 0.5 MG/2.5 ML AMPUL.NEB NEB SCH ×4 (07:08→19:42)
[2017-02-13] MEDS: ALBUTEROL FS 2.5 MG/0.5 ML VIAL.NEB NEB SCH ×4 (07:08→19:42)
[2017-02-13 08:00] VITALS: BP 113/36
[2017-02-13] MEDS: methylPREDNISolone SOD SUCC 40 MG/ML VIAL IV SCH (08:52)
[2017-02-13] MEDS: LEVOTHYROXINE SODIUM 50 MCG TABLET GT SCH (08:52)
[2017-02-13] MEDS: PREGABALIN 100 MG CAPSULE GT SCH ×3 (08:52→18:00)
[2017-02-13] MEDS: MULTIVITAMINS,THERAGRAN 1 UDTAB TABLET PO SCH (08:54)
[2017-02-13] MEDS: PANTOPRAZOLE 40 MG VIAL IV SCH (08:54)
[2017-02-13] MEDS: ACIDOPHILUS/BULGARICUS 1 EACH TAB.CHEW GT SCH ×2 (08:55→17:59)
[2017-02-13] MEDS: METOCLOPRAMIDE HCL 10 MG/2 ML VIAL IV SCH ×3 (08:55→18:00)
[2017-02-13] MEDS: HYDROGEL DRESSING 90 GM TUBE TP SCH (08:56)
[2017-02-13] MEDS: Z GUARD REMEDY 2 OZ OINT TP SCH ×2 (08:56→21:40)
[2017-02-13] MEDS: ASCORBIC ACID 500 MG TABLET PO SCH (08:56)
[2017-02-13] MEDS: DILTIAZEM HCL 30 MG TABLET GT SCH ×4 (08:57→21:36)
[2017-02-13] MEDS: CARVEDILOL 6.25 MG TABLET GT SCH ×2 (08:58→17:59)
[2017-02-13] MEDS: PROSOURCE / PROSTAT (PYXIS) 30 ML UDC GT SCH ×2 (09:00→18:00)
--- NOTE | 2017-02-13 10:57 | NUR ---
WOUND CARE CONSULT: PT SEEN FOR RASH WITH OPEN SKIN TO SACRAL AREA AND PERINEUM. MULTIPLE IRREGULAR SHAPED OPEN AREAS NOTED. PT ALSO SEEN FOR RT 4TH FINGER SMALL ABRASION AND INTACT BLISTERS TO PALMAR SURFACE. DR HOOVER IN TO EXAMINE PT. SPOKE WITH DR HARRISON AND ORDERS RECEIVED. DISCUSSED WITH NURSING STAFF. PT ON EDY ISOFLEX LOW AIRLOSS BED. PT NOTED TO HAVE MULTIPLE CO-MORBIDITIES INCLUDING ANASARCA WITH WEEPING EDEMA TO BILATERAL ARMS, TRACH-VENT DEPENDENT, IMMOBILITY. WILL SEE PRN. MORRIS IN AGREEMENT WITH PLAN OF CARE. Addendum: 02/13/17 at 1101 by CARLO ASH WNDNU Amended: Links added.
[2017-02-13] MEDS ORDERED: CLOTRIMAZOLE 1% 15 GM TUBE TP SCH (11:00)
[2017-02-13 11:36] LABS: BASOPHILS % (AUTO) 0.6 % (0.0-2.0); EOSINOPHILS % (AUTO) 0.1 % (0.0-6.0); HEMATOCRIT 29 % (33-45); HEMOGLOBIN 9.6 g/dL (11.5-14.8); LYMPHOCYTES # (AUTO) 0.2 /CMM (0.8-4.8); LYMPHOCYTES % (AUTO) 6.8 % (20.0-44.0); MEAN CORPUSCULAR HEMOGLOBIN 30 PG (26.0-33.0); MEAN CORPUSCULAR HGB CONC 33 g/dl (31.0-36.0); MEAN CORPUSCULAR VOLUME 92 fL (82-100); MONOCYTES % (AUTO) 1.4 % (2.0-12.0); NEUTROPHILS # (AUTO) 3.2 /CMM (1.8-8.9); NEUTROPHILS % (AUTO) 91.1 % (43.0-81.0); RDW COEFFICIENT OF VARIATION 16.4 (11.5-15.0); WHITE BLOOD COUNT (AUTO) 3.6 K/uL (4.3-11.0)
[2017-02-13 11:43] LABS: PLATELET COUNT (AUTO) 39 /CMM (150-450)
[2017-02-13 11:51] LABS: BAND % (MANUAL) 16 % (0.0-5.0); LYMPHOCYTES % (MANUAL) 5 % (16-48); MONOCYTES % (MANUAL) 1 % (0-11.0); NEUTROPHILS % (MANUAL) 78 (42-76)
[2017-02-13 12:00] VITALS: BP 104/36
[2017-02-13 12:28] LABS: CALCIUM, SERUM 8.2 mg/dL (8.5-10.1); CARBON DIOXIDE 31 mmol/L (21-32); CHLORIDE 108 mmol/L (98-107); CREATININE 1.2 mg/dL (0.6-1.3); POTASSIUM 3.5 mmol/L (3.5-5.1); SODIUM SERUM 143 mmol/L (136-145); UREA NITROGEN, BLOOD 56 mg/dL (7-18)
[2017-02-13 12:30] LABS: GLUCOSE 383 mg/dL (74-106)
[2017-02-13 12:38] LABS: ABG BASE EXCESS 3.2 mmol/L; ABG OXYGEN SATURATION 92.6 % (92.0-98.5); ABG PCO2 31.8 mmHg (35.0-45.0); ABG PH 7.523 (7.350-7.450); ABG PO2 58.2 mmHg (75.0-100.0); AaDO2 118.3 mmHg; COHb 0.4 % (0.5-1.5); MetHb 0.2 % (0.0-1.5)
[2017-02-13] MEDS ORDERED: DEXTROSE 50%-WATER 50 ML DISP.SYRIN IV PRN (13:00)
[2017-02-13] MEDS: IV 1/2NS 1000 ML 1,000 ML IV PRN (13:32)
[2017-02-13] MEDS: NEOMY SULF/BACITRAC ZN/POLY 15 GM TUBE TP SCH (13:38)
[2017-02-13] MEDS: NYSTATIN/TRIAMCIN CREAM 15 GM TUBE TP SCH ×2 (13:38→18:00)
[2017-02-13] MEDS: INSULIN REGULAR, HUMAN 100 UNIT/ML 3 ML VIAL SQ PRN ×2 (13:51→18:07)
[2017-02-13] MEDS ORDERED: IV NS 0.9% 500 ML BAG IV ONE (14:00)
[2017-02-13] MEDS ORDERED: GLYTROL 1,000 ML BAG GT PRN ×2 (14:30→17:09)
[2017-02-13 16:00] VITALS: BP 120/40
[2017-02-13] MEDS: BLOOD SUGAR DIAGNOSTIC 1 EACH STRIP IN SCH (17:59)
[2017-02-13] MEDS: ACYCLOVIR 800 MG TABLET PO SCH ×2 (18:01→21:37)
--- NOTE | 2017-02-13 19:00 | NUR ---
RN NOTE PT HAD WOUND ASSESSED BY WOUND CARE NURSE, MDS MADE AWARE, PICTURES TAKEN, GI EVENT OPERATIONS MANAGER CELESTINA SEEN PT, ORDERED ACYCLOVIR, CRITICAL LABS WERE ADDRESSED WITH DR HOOVER, ORDERS RECEIVED AND CARRIED OUT. HEAD CT DONE WITH NEGATIVE RESULT. SON VISITED TODAY, SPOKE TO DR. HOOVER. DR GARCIA AND JESI MENCHACA CONSULT OREDERED PT WAS SEEN BY BOTH. TUBE FEEDING CHANGED TO GLYTROL, BUT PT CONTINUES TO HAVE HIGH RESIDUALS. EVENT OPERATIONS MANAGER CELESTINA AWARE. SAFETY MEASURES IMPLEMENTED, PT MADE COMFORTABLE, KEPT CLEAN AND DRY. NO STOOL WITH DAY SHIFT. WILL ENDORSE TO CREEL SELECTOR NURSE FOR KUSUM.
[2017-02-13 20:00] VITALS: BP 103/36
--- NOTE | 2017-02-13 20:00 | NUR ---
RN NOTES RECEIVED PATIENT IN BED WITH NO DISTRESS NOTED. BREATHING EVEN AND UNLABORED. NO PHYSICAL MANIFESTATION OF PAIN OR DISCOMFORT. NON VERBAL. VENT SETTING WELL TOLERATED. NOTED WITH RESIDUAL OF 150ML. HELD FEEDING. GTUBE PATENT AND INTACT. FC IN PLACE DRAINING TEA COLORED URINE. WILL CONTINUE TO MONITOR.
[2017-02-13] MEDS ORDERED: VALACYCLOVIR HCL 500 MG TABLET PO SCH (21:00)
[2017-02-13] MEDS: FAMOTIDINE (20 MG) 20 MG TABLET GT SCH (21:38)
[2017-02-13] MEDS: DONEPEZIL 5 MG TABLET GT SCH (21:39)
[2017-02-14] VITALS: BP 110/37
[2017-02-14] MEDS: BLOOD SUGAR DIAGNOSTIC 1 EACH STRIP IN SCH ×4 (00:51→17:29)
[2017-02-14] MEDS: INSULIN REGULAR, HUMAN 100 UNIT/ML 3 ML VIAL SQ PRN ×4 (00:53→17:30)
[2017-02-14] MEDS: IV 1/2NS 1000 ML 1,000 ML IV PRN (02:15)
[2017-02-14 04:00] VITALS: BP 102/40
--- NOTE | 2017-02-14 06:25 | NUR ---
RN CLOSING NOTES IN BED, NO DISTRESS NOTED. NO SIGNIFICANT CHANGE OF CONDITION. NO PHYSICAL MANIFESTATION OF PAIN OR DISCOMFORT. VITAL SIGNS WNL. WILL ENDORSE TO AM SHIFT FOR CONTINUITY OF CARE
--- NOTE | 2017-02-14 07:30 | NUR ---
RETAIL SALESWORKER INITIAL NOTES RECEIVED PATIENT IN BED SLEEPING, UNABLE TO AROUSE, ON VENTILATOR SETTINGS ORDERED, SATURATING WELL, NO SOB, ON TELE MONITOR AV PACING HR 70, ON FC TO GRAVITY, IV VAN MIDLINE 1/2 NS @ 80 CC/HR, CLEAN AND PATENT, GTUBE FEEDINGS AT 45 ML/HR RESIDUAL NOTED 65CC, WEEPING EDEMA ON UPPER EXTREMITIES NOTED, BED IN LOW AND LOCKED POSITION, TURNED Q2H, WILL CONTINUE TO MONITOR.
[2017-02-14] MEDS: ACYCLOVIR 800 MG TABLET PO SCH ×2 (07:35→10:42)
[2017-02-14] MEDS: ALBUTEROL FS 2.5 MG/0.5 ML VIAL.NEB NEB SCH ×4 (07:49→19:35)
[2017-02-14] MEDS: IPRATROPIUM NEB FS 0.5 MG/2.5 ML AMPUL.NEB NEB SCH ×4 (07:49→19:35)
[2017-02-14 08:00] VITALS: BP 97/45
[2017-02-14 08:31] LABS: PROTHROMBIN TIME 10.4 SECS (9.5-12.7)
[2017-02-14 08:32] LABS: D-DIMER 2.96 mg/L(FEU (0.17-0.50)
[2017-02-14] MEDS: PROSOURCE / PROSTAT (PYXIS) 30 ML UDC GT SCH ×2 (08:51→17:09)
[2017-02-14] MEDS: METOCLOPRAMIDE HCL 10 MG/2 ML VIAL IV SCH (08:52)
[2017-02-14] MEDS: methylPREDNISolone SOD SUCC 40 MG/ML VIAL IV SCH (08:52)
[2017-02-14] MEDS: PANTOPRAZOLE 40 MG VIAL IV SCH (08:52)
[2017-02-14] MEDS: PREGABALIN 100 MG CAPSULE GT SCH (08:53)
[2017-02-14] MEDS: LEVOTHYROXINE SODIUM 50 MCG TABLET GT SCH (08:53)
[2017-02-14] MEDS: ACIDOPHILUS/BULGARICUS 1 EACH TAB.CHEW GT SCH ×2 (08:53→17:09)
[2017-02-14] MEDS: ASCORBIC ACID 500 MG TABLET PO SCH (08:53)
[2017-02-14] MEDS: DILTIAZEM HCL 30 MG TABLET GT SCH ×4 (08:53→21:00)
[2017-02-14] MEDS: MULTIVITAMINS,THERAGRAN 1 UDTAB TABLET PO SCH (08:53)
[2017-02-14] MEDS: CARVEDILOL 6.25 MG TABLET GT SCH ×2 (08:54→17:10)
[2017-02-14] MEDS: Z GUARD REMEDY 2 OZ OINT TP SCH ×2 (08:55→21:11)
[2017-02-14] MEDS: NEOMY SULF/BACITRAC ZN/POLY 15 GM TUBE TP SCH (08:55)
--- NOTE | 2017-02-14 09:00 | NUR ---
CENTRIFUGAL SUPERVISOR NOTES BP MEDS HELD DUE TO LOW BLOOD PRESSURE.
[2017-02-14] MEDS: NYSTATIN/TRIAMCIN CREAM 15 GM TUBE TP SCH ×2 (09:23→17:11)
[2017-02-14 12:00] VITALS: BP 101/39
[2017-02-14] MEDS ORDERED: VANCOMYCIN 1 GM in IV D5W 250 ML IV ONE (12:00)
[2017-02-14] MEDS ORDERED: FEE PK DOSING 1 MIN EA MC ONE (12:19)
[2017-02-14] MEDS: PIPERACILLIN /TAZOBACTAM 2.25 G in IV D5W 50 ML IV SCH ×2 (13:47→18:56)
[2017-02-14 14:38] LABS: CALCIUM, SERUM 7.8 mg/dL (8.5-10.1); CARBON DIOXIDE 29 mmol/L (21-32); CHLORIDE 107 mmol/L (98-107); CREATININE 1.8 mg/dL (0.6-1.3); GLUCOSE 220 mg/dL (74-106); MAGNESIUM 1.9 mg/dL (1.8-2.4); PHOSPHORUS 2.6 mg/dL (2.5-4.9); POTASSIUM 3.9 mmol/L (3.5-5.1); SODIUM SERUM 140 mmol/L (136-145)
[2017-02-14 14:41] LABS: UREA NITROGEN, BLOOD 81 mg/dL (7-18)
[2017-02-14] MEDS: IV D5/ 0.9% NACL 1,000 ML IV PRN (14:56)
--- NOTE | 2017-02-14 15:12 | NUR ---
CONCRETE FENCE BUILDER NOTES PATIENT HAD CT OF HEAD DONE PER DR.IDOKO ALEXIS, MYSELF AND RT PRESENT, NO DISTRESS NOTED, PATIENT RETURNED TO ROOM, FAMILY MEMBER AT BEDSIDE, ALL NEEDS MET ALL QUESRTIO Addendum: 02/14/17 at 1514 by ARTEM ANDERSEN RN ALL QUESTIONS ANSWERED, WILL CONTINUE TO MONITOR,
[2017-02-14] MEDS: VANCOMYCIN 500 MG in IV D5W 100 ML IV SCH (15:58)
[2017-02-14 16:00] VITALS: BP 111/40
--- NOTE | 2017-02-14 18:47 | NUR ---
COUNTER WEIGHER END NOTES PATIENT RESTING IN BED, NO SIGNS OF DISTRESS, NO CHANGE OF MENTAL STATUS AT THIS TIME, ALL NEEDS MET, WILL ENDORSE TO CASE MAKER FOR CONTINUITY OF CARE.
--- NOTE | 2017-02-14 19:35 | NUR ---
BROADCAST TRANSMITTER OPERATOR INITIAL NOTE PT RECEIVED SLEEPING IN BED. OBTUNDED. ON MECH VENT WITH SETTINGS WELL TOLERATED AND SATURATING 99%. TELE-AV PACING 70. IV VAN MIDLINE CLEAN, DRY WITH FLUIDS INFUSING. KHOURY CATHETER IN PLACE AND DRAINING YELLOW WITH RED TINGE URINE BY GRAVITY. HOB ELEVATED. ON ASPIRATION PRECAUTIONS. GTUBE FEEDING NOTED WITH 220ML RESIDUALS. GTUBE CLAMPED AT THIS TIME. GTUBE SITE CLEAN. WILL RECHECK RESIDUALS. WILL CONTINUE TO MONITOR.
[2017-02-14 20:00] VITALS: BP 101/33
[2017-02-14] MEDS: FAMOTIDINE (20 MG) 20 MG TABLET GT SCH (21:11)
[2017-02-14] MEDS: ACYCLOVIR IV 500 MG in IV D5W 100 ML IV SCH (21:11)
[2017-02-14] MEDS: DONEPEZIL 5 MG TABLET GT SCH (21:11)
[2017-02-15] VITALS: BP_SYST 97; BP_SYST 99; BP_DIAS 40; BP_DIAS 45
--- NOTE | 2017-02-15 | NUR ---
SPLICING SUPERVISOR NOTE CHECKED GTUBE AND NOTED WITH 300 ML RESIDUALS. FEEDING STILL ON HOLD. WILL RECHECK AT A LATER TIME. HOB ELEVATED. ON ASPIRATION PRECAUTIONS. REPOSITIONED Q2H. SUCTIONED NEEDED. WILL CONTINUE TO MONITOR.
[2017-02-15] MEDS: PIPERACILLIN /TAZOBACTAM 2.25 G in IV D5W 50 ML IV SCH ×3 (00:44→12:19)
[2017-02-15] MEDS: BLOOD SUGAR DIAGNOSTIC 1 EACH STRIP IN SCH ×5 (00:44→23:40)
[2017-02-15] MEDS: INSULIN REGULAR, HUMAN 100 UNIT/ML 3 ML VIAL SQ PRN ×3 (00:49→23:46)
[2017-02-15 04:00] VITALS: BP 103/35
--- NOTE | 2017-02-15 04:00 | NUR ---
SHOP TAILOR NOTE RECHECKED GTUBE WITH 275ML RESIDUALS NOTED. GTUBE FEEDING REMAINS ON HOLD. HOB ELEVATED. WILL CONTINUE TO MONITOR.
[2017-02-15] MEDS: ACYCLOVIR IV 500 MG in IV D5W 100 ML IV SCH ×3 (05:08→21:37)
[2017-02-15 06:27] LABS: BASOPHILS % (AUTO) 0.1 % (0.0-2.0); EOSINOPHILS % (AUTO) 0.1 % (0.0-6.0); HEMATOCRIT 26 % (33-45); HEMOGLOBIN 8.6 g/dL (11.5-14.8); LYMPHOCYTES # (AUTO) 0.1 /CMM (0.8-4.8); LYMPHOCYTES % (AUTO) 8.2 % (20.0-44.0); MEAN CORPUSCULAR HEMOGLOBIN 30 PG (26.0-33.0); MEAN CORPUSCULAR HGB CONC 33 g/dl (31.0-36.0); MEAN CORPUSCULAR VOLUME 91 fL (82-100); MONOCYTES % (AUTO) 1.1 % (2.0-12.0); NEUTROPHILS # (AUTO) 1.4 /CMM (1.8-8.9); NEUTROPHILS % (AUTO) 90.5 % (43.0-81.0); RDW COEFFICIENT OF VARIATION 16.5 (11.5-15.0); RED BLOOD CELL COUNT(AUTO) 2.89 MIL/uL (4.0-5.2)
[2017-02-15 06:45] LABS: PLATELET COUNT (AUTO) 15 /CMM (150-450); WHITE BLOOD COUNT (AUTO) 1.6 K/uL (4.3-11.0)
[2017-02-15 07:02] LABS: CALCIUM, SERUM 7.8 mg/dL (8.5-10.1); CARBON DIOXIDE 24 mmol/L (21-32); CHLORIDE 104 mmol/L (98-107); GLUCOSE 270 mg/dL (74-106); MAGNESIUM 1.9 mg/dL (1.8-2.4); POTASSIUM 3.8 mmol/L (3.5-5.1); SODIUM SERUM 136 mmol/L (136-145)
[2017-02-15 07:03] LABS: UREA NITROGEN, BLOOD 86 mg/dL (7-18)
[2017-02-15] MEDS: LEVOTHYROXINE SODIUM 25 MCG TABLET GT SCH (07:44)
[2017-02-15] MEDS: ALBUTEROL FS 2.5 MG/0.5 ML VIAL.NEB NEB SCH ×4 (07:55→20:10)
[2017-02-15] MEDS: IPRATROPIUM NEB FS 0.5 MG/2.5 ML AMPUL.NEB NEB SCH ×4 (07:55→20:10)
[2017-02-15 08:00] VITALS: BP 96/46
--- NOTE | 2017-02-15 08:03 | NUR ---
TRIM CREW SUPERVISOR CLOSING NOTE PT REMAINED STABLE DURING SHIFT. NO ACUTE DISTRESS NOTED. HOB ELEVATED. GTUBE CLAMPED AND NOTED WITH HI RESIDUALS 250 ML. ON ASPIRATION PRECAUTIONS. SUCTIONED NEEDED. PROVIDED ORAL CARE AND NOTED MOUTH BLEEDING WITH OPEN BLISTERS ON TONGUE. NO FACIAL GRIMACE NOTED. RECEIVED CRITICAL LAB FOR WBC 1.6 [address] CALLED DR[address] ESPOSITO AND THE SERVICE REFERRED TO CALL [facility] WHO IS COVERING. SPOKE WITH COURTNEY FERRARO. COURTNEY STATED SHE IS NOT COVERING THAT CASE AND SAID TO SPEAK WITH DR. HOOVER. CALLED [facility] AND LEFT MESSAGE TO DR. HOOVER AND AWAITING CALL BACK. WILL ENDORSE TO NEXT SHIFT FOR CONTINUITY OF CARE.
[2017-02-15 08:06] LABS: IMMUNOGLOBULIN A, SERUM 173 mg/dL (64-422); IMMUNOGLOBULIN G, SERUM 291 mg/dL (700-1600); IMMUNOGLOBULIN M, SERUM 28 mg/dL (26-217)
--- NOTE | 2017-02-15 08:10 | NUR ---
MS RN RECEIVED ON BED, LETHARGIC, NOT IN ANY FORM OF DISTRESS,VENT DEPENDENT PATIENT, G TUBE HELD DUE TO RESIDUALS, REPOSITIONED FOR COMFORT,ALL NEEDS ATTENDED.
[2017-02-15] MEDS: CARVEDILOL 6.25 MG TABLET GT SCH ×2 (09:00→17:00)
[2017-02-15] MEDS: DILTIAZEM HCL 30 MG TABLET GT SCH ×4 (09:00→21:00)
[2017-02-15 09:06] LABS: BAND % (MANUAL) 26 % (0.0-5.0); LYMPHOCYTES % (MANUAL) 7 % (16-48); METAMYELOCYTES % 1 % (0-0); MONOCYTES % (MANUAL) 2 % (0-11.0); NEUTROPHILS % (MANUAL) 64 (42-76)
[2017-02-15] MEDS: methylPREDNISolone SOD SUCC 40 MG/ML VIAL IV SCH (09:52)
[2017-02-15] MEDS: VANCOMYCIN 500 MG in IV D5W 100 ML IV SCH (09:52)
[2017-02-15] MEDS: MULTIVITAMINS,THERAGRAN 1 UDTAB TABLET PO SCH (09:52)
[2017-02-15] MEDS: ASCORBIC ACID 500 MG TABLET PO SCH (09:52)
[2017-02-15] MEDS: ACIDOPHILUS/BULGARICUS 1 EACH TAB.CHEW GT SCH ×2 (09:52→17:26)
[2017-02-15] MEDS: PANTOPRAZOLE 40 MG VIAL IV SCH (09:52)
[2017-02-15] MEDS: NYSTATIN/TRIAMCIN CREAM 15 GM TUBE TP SCH ×2 (09:54→17:26)
[2017-02-15] MEDS: NEOMY SULF/BACITRAC ZN/POLY 15 GM TUBE TP SCH (09:54)
[2017-02-15] MEDS: Z GUARD REMEDY 2 OZ OINT TP SCH ×2 (09:57→21:37)
--- NOTE | 2017-02-15 10:00 | NUR ---
MS RN CHECK G TUBE FOR RESIDUAL, STILL 200-300ML OUT, CONTINUE TO HOLD FEEDING PER ORDER.WILL MONITOR PATIENT.
[2017-02-15] MEDS: PROSOURCE / PROSTAT (PYXIS) 30 ML UDC GT SCH ×2 (10:05→17:26)
[2017-02-15 12:00] VITALS: BP 103/37
[2017-02-15 16:00] VITALS: BP 89/43
[2017-02-15 16:37] LABS: INR 1.05 (0.87-1.13); PROTHROMBIN TIME 10.9 SECS (9.5-12.7)
[2017-02-15] MEDS: MEROPENEM 500 MG in IV NS 0.9% 50 ML IV SCH (19:16)
[2017-02-15] MEDS: MICAFUNGIN SODIUM 100 MG in IV NS 0.9% 100 ML IV SCH (19:16)
--- NOTE | 2017-02-15 19:30 | NUR ---
MASTER CERTIFIED RV TECHNICIAN INITIAL NOTE PT RECEIVED SLEEPING IN BED. OBTUNDED. ON MECH VENT WITH SETTINGS WELL TOLERATED AND SATURATING 99%. TELE-AV PACING 74. IV VAN MIDLINE CLEAN, DRY WITH FLUIDS INFUSING. KHOURY CATHETER IN PLACE AND DRAINING YELLOW WITH RED TINGE URINE WITH SEDIMENT BY GRAVITY. HOB ELEVATED. ON ASPIRATION PRECAUTIONS. GTUBE FEEDING NOTED WITH 75ML RESIDUALS. GTUBE CLAMPED AT THIS TIME. GTUBE SITE CLEAN. WILL RECHECK RESIDUALS. WILL CONTINUE TO MONITOR.
[2017-02-15 20:00] VITALS: BP 99/31
[2017-02-15] MEDS: FAMOTIDINE (20 MG) 20 MG TABLET GT SCH (21:37)
[2017-02-15] MEDS: DONEPEZIL 5 MG TABLET GT SCH (21:37)
--- NOTE | 2017-02-15 22:30 | NUR ---
BISCUIT FACTORY WORKER NOTE RECHECKED GTUBE WITH 75ML RESIDUALS NOTED. GTUBE SITE NOTED WITH SLIGHT LEAKING. HOB ELEVATED. WILL CONTINUE TO MONITOR.
[2017-02-16] VITALS: BP 94/69
--- NOTE | 2017-02-16 00:30 | NUR ---
FILTER TENDER NOTE RESIDUALS STILL 75ML. GTUBE SITE CLEAN AT THIS TIME. WILL CONTINUE TO MONITOR.
[2017-02-16] MEDS: VANCOMYCIN 500 MG in IV D5W 100 ML IV SCH ×2 (01:00→20:38)
[2017-02-16 04:00] VITALS: BP 101/32
--- NOTE | 2017-02-16 04:00 | NUR ---
EYELET RIVETER NOTE PT GTUBE RECHECKED WITH 75ML RESIDUALS STILL NOTED. ORAL CARE PERFORMED AND NOTED WITH BLISTERS IN MOUTH AND BLEEDING SLIGHTLY. HOB ELEVATED. ASPIRATION PRECAUTIONS MAINTAINED. SUCTIONED NEEDED. WILL CONTINUE TO MONITOR.
[2017-02-16] MEDS: MEROPENEM 500 MG in IV NS 0.9% 50 ML IV SCH ×2 (04:46→16:17)
[2017-02-16] MEDS: ACYCLOVIR IV 500 MG in IV D5W 100 ML IV SCH ×3 (05:15→21:39)
[2017-02-16] MEDS: BLOOD SUGAR DIAGNOSTIC 1 EACH STRIP IN SCH ×3 (05:15→17:31)
[2017-02-16] MEDS: INSULIN REGULAR, HUMAN 100 UNIT/ML 3 ML VIAL SQ PRN ×3 (05:19→17:33)
[2017-02-16 07:27] LABS: CREATINE KINASE, TOTAL 330 U/L (26-192)
[2017-02-16 07:29] LABS: HEMATOCRIT 25 % (33-45); HEMOGLOBIN 8.5 g/dL (11.5-14.8); MEAN CORPUSCULAR HEMOGLOBIN 30 PG (26.0-33.0); MEAN CORPUSCULAR HGB CONC 34 g/dl (31.0-36.0); MEAN CORPUSCULAR VOLUME 91 fL (82-100); RDW COEFFICIENT OF VARIATION 17.3 (11.5-15.0); RED BLOOD CELL COUNT(AUTO) 2.79 MIL/uL (4.0-5.2)
[2017-02-16 07:31] LABS: CREATINE KINASE MB 3.8 ng/mL (0-3.6)
[2017-02-16 07:32] LABS: ALANINE AMINOTRANSFERASE 34 U/L (12-78); ALKALINE PHOSPHATASE 82 U/L (46-116); ASPARTATE AMINOTRANSFERASE 51 U/L (15-37); BILIRUBIN,TOTAL 0.4 mg/dL (0.2-1.0); CALCIUM, SERUM 7.5 mg/dL (8.5-10.1); CARBON DIOXIDE 24 mmol/L (21-32); CHLORIDE 102 mmol/L (98-107); CREATININE 2.6 mg/dL (0.6-1.3); GLUCOSE 271 mg/dL (74-106); MAGNESIUM 1.8 mg/dL (1.8-2.4); PHOSPHORUS 4.2 mg/dL (2.5-4.9); POTASSIUM 4.3 mmol/L (3.5-5.1); SODIUM SERUM 136 mmol/L (136-145); TOTAL PROTEIN, SERUM 4.3 g/dL (6.4-8.2)
--- NOTE | 2017-02-16 07:34 | NUR ---
EDUCATION AND OUTREACH COORDINATOR CLOSING NOTE PT REMAINED STABLE DURING SHIFT. NO ACUTE DISTRESS NOTED. HOB ELEVATED. SUCTIONED NEEDED. KEPT CLEAN AND DRY. REPOSITIONED Q2H. GTUBE IN PLACE AND FLUSHING WELL. 75 ML RESIDUALS NOTED AT THIS TIME. IV IN PLACE. KHOURY CATHETER IN PLACE. VENT SETTINGS WELL TOLERATED. WILL ENDORSE TO NEXT SHIFT FOR CONTINUITY OF CARE.
[2017-02-16 07:37] LABS: UREA NITROGEN, BLOOD 93 mg/dL (7-18)
[2017-02-16 07:40] LABS: INR 1.1 (0.87-1.13); PROTHROMBIN TIME 11.5 SECS (9.5-12.7)
[2017-02-16] MEDS: IPRATROPIUM NEB FS 0.5 MG/2.5 ML AMPUL.NEB NEB SCH ×4 (07:47→20:16)
[2017-02-16] MEDS: ALBUTEROL FS 2.5 MG/0.5 ML VIAL.NEB NEB SCH ×4 (07:47→20:16)
[2017-02-16] MEDS: LEVOTHYROXINE SODIUM 25 MCG TABLET GT SCH (07:49)
[2017-02-16 07:56] LABS: APPEARANCE,URINE CLOUDY (CLEAR); BILIRUBIN,URINE NEGATIVE (NEGATIVE); BLOOD, URINE 3+ Ery/uL (NEGATIVE); COLOR,URINE ORANGE (YELLOW); KETONES,URINE NEGATIVE (NEGATIVE); LEUKOCYTE ESTERASE ,URINE 2+ (NEGATIVE); NITRITE, URINE NEGATIVE (NEGATIVE); PH,URINE 6.5 (5.0-8.0); PROTEIN,URINE 2+ mg/dl (NEGATIVE); UGLUCOSE NEGATIVE (NEGATIVE); UROBILINOGEN,URINE 0.2 EU/dL (0.2)
[2017-02-16 08:00] VITALS: BP 95/36
[2017-02-16 08:08] LABS: PLATELET COUNT (AUTO) 14 /CMM (150-450); WHITE BLOOD COUNT (AUTO) 1.4 K/uL (4.3-11.0)
[2017-02-16 08:16] LABS: CREATININE, URINE 22.1 MG/DL (30.0-125.0); URINE TOTAL PROTEIN 261.9 mg/dL (0-11.9)
[2017-02-16] MEDS: ACIDOPHILUS/BULGARICUS 1 EACH TAB.CHEW GT SCH ×2 (08:25→16:17)
[2017-02-16] MEDS: PROSOURCE / PROSTAT (PYXIS) 30 ML UDC GT SCH ×2 (08:25→16:17)
[2017-02-16] MEDS: PANTOPRAZOLE 40 MG VIAL IV SCH (08:25)
[2017-02-16] MEDS: ASCORBIC ACID 500 MG TABLET PO SCH (08:25)
[2017-02-16] MEDS: methylPREDNISolone SOD SUCC 40 MG/ML VIAL IV SCH (08:25)
[2017-02-16] MEDS: MULTIVITAMINS,THERAGRAN 1 UDTAB TABLET PO SCH (08:25)
[2017-02-16] MEDS: NYSTATIN/TRIAMCIN CREAM 15 GM TUBE TP SCH ×2 (08:26→16:22)
[2017-02-16] MEDS: Z GUARD REMEDY 2 OZ OINT TP SCH ×2 (08:27→20:38)
[2017-02-16] MEDS: DILTIAZEM HCL 30 MG TABLET GT SCH ×4 (08:28→20:38)
[2017-02-16] MEDS: CARVEDILOL 6.25 MG TABLET GT SCH ×2 (08:29→16:41)
[2017-02-16 08:36] LABS: ALBUMIN 0.8 g/dL (3.4-5.0)
[2017-02-16] MEDS: IV D5/ 0.9% NACL 1,000 ML IV PRN (08:49)
[2017-02-16 08:54] LABS: RBC,URINE 51-80 /HPF (0-2)
[2017-02-16 08:55] LABS: BACTERIA,URINE Few /HPF (None Seen); SQUAMOUS EPITHELIAL CELL,UR Few /HPF (None Seen); YEAST,URINE Few /HPF (None Seen)
[2017-02-16] MEDS ORDERED: ALBUMIN 25% 25 GM in PREMIX 1 EA IV SCH (09:00)
[2017-02-16] MEDS: NEOMY SULF/BACITRAC ZN/POLY 15 GM TUBE TP SCH ×2 (09:00→11:49)
[2017-02-16 09:01] LABS: D-DIMER 16.48 mg/L(FEU (0.17-0.50)
[2017-02-16 09:34] LABS: BAND % (MANUAL) 2 % (0.0-5.0); LYMPHOCYTES % (MANUAL) 9 % (16-48); MONOCYTES % (MANUAL) 2 % (0-11.0); NEUTROPHILS % (MANUAL) 87 (42-76)
[2017-02-16] MEDS ORDERED: GLYTROL 1,000 ML BAG GT PRN (10:00)
[2017-02-16 10:07] LABS: EOSINOPHIL,URINE Rare
[2017-02-16 12:00] VITALS: BP 88/40
[2017-02-16 16:00] VITALS: BP 90/30
[2017-02-16] MEDS: MICAFUNGIN SODIUM 100 MG in IV NS 0.9% 100 ML IV SCH (17:00)
--- NOTE | 2017-02-16 18:41 | NUR ---
Tele/RN - Notes Patient obtunded on mechanical vent, tolerating current settings, remain afebrile, no s/s of pain. Tube feeding Glytrol resumed at 20 ml/hr, tolerating well, no n/v. Gastric residual checked q6h, 120 cc of greenish output obtained. Aspiration precautions maintained. Patient's condition remain guarded, code status discussed with luther Maynard at bedside still prefers Full code. Continue IV antibiotics and IVF to maintain hydration. Lujan cath in place, low urine output, Md aware. Will continue with current medical management.
--- NOTE | 2017-02-16 19:05 | NUR ---
INTERACTIVE DIGITAL MEDIA SPECIALIST OPENING NOTES RECEIVED REPORT FROM AM RN. PATIENT OBTUNDED W/ TRACH INTACT & VENT SETTINGS AC 12, TV 400, FIO2 40%, PEEP 5. NO RESPIRATORY DISTRESS NOTED. ON TELE W/ AV PACING IN THE 70S. LEFT UPPER ARM MIDLINE INTACT & PATENT W/ DRESSING CDI & IVF D5 NS @ 80 ML/HR. G-TUBE INTACT & FLUSHING WELL W/ GLYTROL @ 20 ML/HR. SOME RESIDUAL NOTED. KHOURY CATH DRAINING ERIKA URINE W/ LITTLE OUTPUT. NO S/S OF PAIN OR DISCOMFORT @ THIS TIME. SAFETY MEASURES IN PLACE W/ SIDE RAILS UP, BED LOCKED & IN LOWEST POSITION & CALL LIGHT WITHIN REACH. WILL CONTINUE TO MONITOR.
[2017-02-16 20:00] VITALS: BP 95/39
--- NOTE | 2017-02-16 20:18 | NUR ---
PT RCVD ON [facility] VENT WITH NOTED SETTINGS. VENT PLUGGED INTO RED OUTLET,VENT ALARM WORKING AND AUDIBLE, STATISTICAL MACHINE SERVICER CUFF CHECKED,SUCTIONED SMALL AMOUNT OF PALE YELLOW THICK SECRETIONS. NO RESP DISTRESS AT THIS TIME. BREATHING TX GIVEN ORDERED,NO ADVERSE REACTION NOTED. AMBU BAG AT BEDSIDE, WILL CONTINUE TO MONITOR THE PT. Addendum: 02/17/17 at 0539 by JOY ALVARADO RT SUCTIONED SMALL AMOUNT OF THICK PALE YELLOW SECRETIONS WITH BLOOD TINGED
[2017-02-16] MEDS: FAMOTIDINE (20 MG) 20 MG TABLET GT SCH (21:39)
[2017-02-16] MEDS: DONEPEZIL 5 MG TABLET GT SCH (21:39)
[2017-02-17] VITALS (77 sets, daily range): BP systolic 78–164; BP diastolic 36–74
[2017-02-17] MEDS: BLOOD SUGAR DIAGNOSTIC 1 EACH STRIP IN SCH ×5 (00:17→23:49)
[2017-02-17] MEDS: INSULIN REGULAR, HUMAN 100 UNIT/ML 3 ML VIAL SQ PRN ×5 (00:17→23:50)
[2017-02-17] MEDS: IV D5/ 0.9% NACL 1,000 ML IV PRN (02:41)
--- NOTE | 2017-02-17 04:00 | NUR ---
RN NOTES CALLED [facility] & SPOKE TO DR RAYGOZA REGARDING PT'S LOW BP IN THE 70S. RECEIVED ORDER FOR NS 500 BOLUS & RECHECK BP. ORDER NOTED & CARRIED OUT.
[2017-02-17] MEDS ORDERED: IV NS 0.9% 500 ML IV ONE ×2 (04:30→05:00)
--- NOTE | 2017-02-17 05:00 | NUR ---
RN NOTES PATIENT STILL W/ DECREASED BP IN THE 70S. CALLED & SPOKE TO DR RAYGOZA & RECEIVED ORDER FOR ANOTHER NS BOLUS 500 & TRANSFER TO ICU & START LEVOPHED IF BP DOESN'T IMPROVE. ORDER NOTED & CARRIED OUT. CHARGE NURSE AWARE.
[2017-02-17] MEDS ORDERED: NOREPINEPHRINE 4 MG/4 ML AMPUL IV ONE ×3 (05:07→05:09)
[2017-02-17] MEDS: NOREPINEPHRINE 16 MG in IV D5W 500 ML IV PRN ×2 (05:17→09:22)
[2017-02-17] MEDS: MEROPENEM 500 MG in IV NS 0.9% 50 ML IV SCH ×2 (05:47→17:27)
--- NOTE | 2017-02-17 06:30 | NUR ---
RN NOTES TRANSFERRED PATIENT TO ICU ROOM 264. REPORT GIVEN TO GERRY BLACKWELL FOR KUSUM.
--- NOTE | 2017-02-17 06:30 | NUR ---
DIRECTOR OF CURRICULUM AND INSTRUCTION RCD REPORT AT THIS TIME. PT TRANSFERRED FROM [facility] FOR HYPOTENSION.
[2017-02-17] MEDS: ACYCLOVIR IV 500 MG in IV D5W 100 ML IV SCH ×3 (06:31→20:14)
--- NOTE | 2017-02-17 07:45 | NUR ---
ICU/RN - Initial Notes Received pt obtunded. Trach to mechanical vent, with settings as ordered. No s/s of pain or discomfort. GT kept clamped at this time, pt noted with gastric residuals 275 mL. Lujan catheter intact, anuric, minimal output noted. Pt hypotensive, on levophed titrated accordingly. Awaiting PICC line placement. VAN ML intact with IVF infusing well. Safety and comfort measures in place. Will continue to monitor pt closely.
[2017-02-17] MEDS: IPRATROPIUM NEB FS 0.5 MG/2.5 ML AMPUL.NEB NEB SCH ×4 (07:51→19:58)
[2017-02-17] MEDS: ALBUTEROL FS 2.5 MG/0.5 ML VIAL.NEB NEB SCH ×4 (07:51→19:58)
[2017-02-17] MEDS: MULTIVITAMINS,THERAGRAN 1 UDTAB TABLET PO SCH (08:44)
[2017-02-17] MEDS: PANTOPRAZOLE 40 MG VIAL IV SCH (08:44)
[2017-02-17] MEDS: LEVOTHYROXINE SODIUM 25 MCG TABLET GT SCH (08:44)
[2017-02-17] MEDS: ASCORBIC ACID 500 MG TABLET PO SCH (08:44)
[2017-02-17] MEDS: ACIDOPHILUS/BULGARICUS 1 EACH TAB.CHEW GT SCH ×2 (08:44→17:27)
[2017-02-17] MEDS: DILTIAZEM HCL 30 MG TABLET GT SCH ×4 (08:45→20:14)
[2017-02-17] MEDS: NYSTATIN/TRIAMCIN CREAM 15 GM TUBE TP SCH ×2 (08:45→17:27)
[2017-02-17] MEDS: Z GUARD REMEDY 2 OZ OINT TP SCH ×2 (08:45→20:15)
[2017-02-17] MEDS: methylPREDNISolone SOD SUCC 40 MG/ML VIAL IV SCH (08:45)
[2017-02-17] MEDS: NEOMY SULF/BACITRAC ZN/POLY 15 GM TUBE TP SCH (08:45)
[2017-02-17] MEDS: PROSOURCE / PROSTAT (PYXIS) 30 ML UDC GT SCH ×2 (08:46→17:27)
[2017-02-17] MEDS: CARVEDILOL 6.25 MG TABLET GT SCH ×2 (08:46→17:00)
[2017-02-17 09:45] LABS: CALCIUM, SERUM 6.9 mg/dL (8.5-10.1); CARBON DIOXIDE 22 mmol/L (21-32); CHLORIDE 103 mmol/L (98-107); CREATININE 2.7 mg/dL (0.6-1.3); GLUCOSE 191 mg/dL (74-106); SODIUM SERUM 135 mmol/L (136-145)
[2017-02-17 09:48] LABS: UREA NITROGEN, BLOOD 91 mg/dL (7-18)
--- NOTE | 2017-02-17 12:00 | NUR ---
ICU/RN - Notes Gastric residuals of 300mL, Amy Brewster CROSS ENTERPRISE INTEGRATOR made aware, with orders received to keep pt NPO.
[2017-02-17 12:09] LABS: *SPE A/G RATIO 0.6 (0.7-1.7); *SPE ALBUMIN 1.3 g/dL (2.9-4.4); *SPE ALPHA-1-GLOBULIN 0.3 g/dL (0.0-0.4); *SPE ALPHA-2-GLOBULIN 0.9 g/dL (0.4-1.0); *SPE BETA GLOBULIN 0.7 g/dL (0.7-1.3); *SPE GLOBULIN, TOTAL 2.3 g/dL (2.2-3.9); *SPE M-SPIKE Not Observed g/dL (Not Observed); *SPEGAMMA GLOBULIN 0.3 g/dL (0.4-1.8)
--- NOTE | 2017-02-17 12:20 | NUR ---
ICU/RN - Notes Amy Brewster NP (Gastroenterology) made aware of findings on CXR - Lucency beneath the right diaphragm, concerning for intraperitoneal free air. Per METAL HANDLER, obtain CXR of left lateral decubitus view, and will discuss findings with Dr Garcia.
[2017-02-17] MEDS: VANCOMYCIN 500 MG in IV D5W 100 ML IV SCH (13:46)
[2017-02-17 16:14] LABS: HEMATOCRIT 21 % (33-45); LYMPHOCYTES # (AUTO) 0.4 /CMM (0.8-4.8); LYMPHOCYTES % (AUTO) 17.3 % (20.0-44.0); MEAN CORPUSCULAR HEMOGLOBIN 30 PG (26.0-33.0); MEAN CORPUSCULAR HGB CONC 34 g/dl (31.0-36.0); MEAN CORPUSCULAR VOLUME 90 fL (82-100); MONOCYTES # (AUTO) 0.5 /CMM (0.1-1.30); MONOCYTES % (AUTO) 22.1 % (2.0-12.0); NEUTROPHILS # (AUTO) 1.2 /CMM (1.8-8.9); NEUTROPHILS % (AUTO) 60.6 % (43.0-81.0); RDW COEFFICIENT OF VARIATION 16.7 (11.5-15.0); RED BLOOD CELL COUNT(AUTO) 2.31 MIL/uL (4.0-5.2)
[2017-02-17 16:30] LABS: PLATELET COUNT (AUTO) 14 /CMM (150-450)
--- NOTE | 2017-02-17 16:35 | NUR ---
ICU/MORTGAGE BROKER REPORTED H/H-7.O/21.PLT-14.DR GUPTA NOTIFIED.1 UNIT PRBC ORDERED.
[2017-02-17 17:38] LABS: BAND % (MANUAL) 4 % (0.0-5.0); LYMPHOCYTES % (MANUAL) 5 % (16-48); NEUTROPHILS % (MANUAL) 87 (42-76)
[2017-02-17 17:39] LABS: MONOCYTES % (MANUAL) 4 % (0-11.0)
[2017-02-17] MEDS: MICAFUNGIN SODIUM 100 MG in IV NS 0.9% 100 ML IV SCH (17:55)
--- NOTE | 2017-02-17 18:25 | NUR ---
ICU/RN - Notes Per blood bank, antibodies noted in blood and needs to be sent to [facility] [place] for investigation. PRBC unit will not be available until tomorrow. Charge nurse made aware.
--- NOTE | 2017-02-17 20:02 | NUR ---
LAB CALLED AND NOTIFIED ME THAT THE PATIENT NEEDS TO BE TESTED FOR ANTIBODIES BY [facility], AND THE RESULTS WILL NOT BE AVAILABLE UNTIL TOMORROW MORNING, THEREFORE THE UNIT OF BLOOD CANNOT BE GIVEN UNTIL THEN.
[2017-02-17] MEDS: FAMOTIDINE (20 MG) 20 MG TABLET GT SCH (21:26)
[2017-02-17] MEDS: DONEPEZIL 5 MG TABLET GT SCH (21:26)
[2017-02-17] MEDS ORDERED: DIATR MEGLU/DIATRIZOATE SODIUM 30 ML BOTTLE (GASTROGRAPHIN) ONE (23:06)
--- NOTE | 2017-02-17 23:28 | NUR ---
kub with gastrografin done at bedside. per radiology ct abdomen needs to be on hold until pt passes gastrografin through bowels, vehicle refinisher aware
[2017-02-18] VITALS (106 sets, daily range): BP systolic 59–138; BP diastolic 4–64
[2017-02-18] MEDS: IV D5/ 0.9% NACL 1,000 ML IV PRN ×2 (00:07→16:49)
[2017-02-18] MEDS: NOREPINEPHRINE 16 MG in IV D5W 500 ML IV PRN ×3 (04:17→17:27)
[2017-02-18] MEDS: MEROPENEM 500 MG in IV NS 0.9% 50 ML IV SCH ×2 (05:01→16:47)
[2017-02-18] MEDS: BLOOD SUGAR DIAGNOSTIC 1 EACH STRIP IN SCH ×4 (05:01→23:17)
[2017-02-18] MEDS: ACYCLOVIR IV 500 MG in IV D5W 100 ML IV SCH ×3 (05:01→20:06)
[2017-02-18] MEDS: INSULIN REGULAR, HUMAN 100 UNIT/ML 3 ML VIAL SQ PRN ×4 (05:12→23:18)
[2017-02-18 06:39] LABS: CARBON DIOXIDE 20 mmol/L (21-32); CHLORIDE 102 mmol/L (98-107); CREATININE 2.9 mg/dL (0.6-1.3); GLUCOSE 257 mg/dL (74-106); POTASSIUM 4.3 mmol/L (3.5-5.1); SODIUM SERUM 133 mmol/L (136-145)
[2017-02-18 06:42] LABS: UREA NITROGEN, BLOOD 91 mg/dL (7-18)
[2017-02-18] MEDS: VANCOMYCIN 500 MG in IV D5W 100 ML IV SCH (07:26)
[2017-02-18] MEDS: ALBUTEROL FS 2.5 MG/0.5 ML VIAL.NEB NEB SCH ×4 (07:35→20:26)
[2017-02-18] MEDS: IPRATROPIUM NEB FS 0.5 MG/2.5 ML AMPUL.NEB NEB SCH ×4 (07:35→20:26)
--- NOTE | 2017-02-18 07:45 | NUR ---
ICU/RN - Initial Notes Received pt obtunded. Trach to mechanical vent, with settings as ordered. No s/s of pain or discomfort. No gag reflex noted when suctioned.GT kept clamped at this time, pt noted with gastric residuals ~300mL mL. Lujan catheter intact, anuric, minimal output noted. Pt hypotensive, on levophed titrated accordingly. Awaiting PICC line placement. VAN ML intact with IVF infusing well. Safety and comfort measures in place. Will continue to monitor pt closely.
--- NOTE | 2017-02-18 08:00 | NUR ---
ICU/RN - Notes Pt's rectal temperature 91.[address] measures [address] place.
--- NOTE | 2017-02-18 08:45 | NUR ---
ICU/RN - Notes Dr Price spoke with pt's son Caesar via telephone regarding pt's current condition. Code status changed to DNR per MD.
[2017-02-18 08:47] LABS: EOSINOPHILS % (AUTO) 0.2 % (0.0-6.0); HEMATOCRIT 23 % (33-45); HEMOGLOBIN 7.7 g/dL (11.5-14.8); LYMPHOCYTES # (AUTO) 0.2 /CMM (0.8-4.8); LYMPHOCYTES % (AUTO) 6.5 % (20.0-44.0); MEAN CORPUSCULAR HEMOGLOBIN 30 PG (26.0-33.0); MEAN CORPUSCULAR HGB CONC 34 g/dl (31.0-36.0); MEAN CORPUSCULAR VOLUME 90 fL (82-100); MONOCYTES # (AUTO) 0.6 /CMM (0.1-1.30); MONOCYTES % (AUTO) 23.4 % (2.0-12.0); NEUTROPHILS # (AUTO) 1.9 /CMM (1.8-8.9); NEUTROPHILS % (AUTO) 69.9 % (43.0-81.0); RDW COEFFICIENT OF VARIATION 17.1 (11.5-15.0); RED BLOOD CELL COUNT(AUTO) 2.53 MIL/uL (4.0-5.2); WHITE BLOOD COUNT (AUTO) 2.7 K/uL (4.3-11.0)
[2017-02-18] MEDS: CARVEDILOL 6.25 MG TABLET GT SCH ×2 (09:00→16:32)
[2017-02-18] MEDS: ACIDOPHILUS/BULGARICUS 1 EACH TAB.CHEW GT SCH ×2 (09:00→16:32)
[2017-02-18] MEDS: MULTIVITAMINS,THERAGRAN 1 UDTAB TABLET PO SCH (09:00)
[2017-02-18] MEDS: DILTIAZEM HCL 30 MG TABLET GT SCH ×5 (09:00→20:29)
[2017-02-18] MEDS: PROSOURCE / PROSTAT (PYXIS) 30 ML UDC GT SCH ×2 (09:00→16:32)
[2017-02-18] MEDS: ASCORBIC ACID 500 MG TABLET PO SCH (09:00)
[2017-02-18 09:12] LABS: *SPE A/G RATIO 0.4 (0.7-1.7); *SPE ALPHA-1-GLOBULIN 0.3 g/dL (0.0-0.4); *SPE ALPHA-2-GLOBULIN 1.1 g/dL (0.4-1.0); *SPE BETA GLOBULIN 0.6 g/dL (0.7-1.3); *SPE GLOBULIN, TOTAL 2.3 g/dL (2.2-3.9); *SPE M-SPIKE 0.1 g/dL (Not Observed); *SPEGAMMA GLOBULIN 0.2 g/dL (0.4-1.8)
[2017-02-18] MEDS: PANTOPRAZOLE 40 MG VIAL IV SCH (09:30)
[2017-02-18] MEDS: methylPREDNISolone SOD SUCC 40 MG/ML VIAL IV SCH (09:30)
[2017-02-18] MEDS: LEVOTHYROXINE SODIUM 25 MCG TABLET GT SCH (09:33)
[2017-02-18] MEDS: Z GUARD REMEDY 2 OZ OINT TP SCH ×2 (09:34→20:07)
[2017-02-18] MEDS: NYSTATIN/TRIAMCIN CREAM 15 GM TUBE TP SCH ×2 (09:34→16:47)
[2017-02-18] MEDS: NEOMY SULF/BACITRAC ZN/POLY 15 GM TUBE TP SCH (09:34)
[2017-02-18 09:35] LABS: PLATELET COUNT (AUTO) 17 /CMM (150-450)
[2017-02-18 09:54] LABS: BAND % (MANUAL) 5 % (0.0-5.0); LYMPHOCYTES % (MANUAL) 5 % (16-48); MONOCYTES % (MANUAL) 9 % (0-11.0); NEUTROPHILS % (MANUAL) 81 (42-76)
--- NOTE | 2017-02-18 11:50 | NUR ---
ICU/RN - Notes Amy Brewster ELECTRICAL ENGINEER MEP at bedside for evaluation. New orders received. Pt placed G tube to low intermittent suction. Greenish drainage noted.
[2017-02-18] MEDS: METOCLOPRAMIDE HCL 10 MG/2 ML VIAL IV SCH ×3 (12:48→23:17)
--- NOTE | 2017-02-18 16:00 | NUR ---
ICU/RN - Notes Dr Thomas Woods at bedside for lumbar puncture. Unsuccessful lumbar puncture, unable to obtain fluid.
[2017-02-18] MEDS: MICAFUNGIN SODIUM 100 MG in IV NS 0.9% 100 ML IV SCH (17:22)
--- NOTE | 2017-02-18 18:46 | NUR ---
RT NOTE PT REMAINS IN STABLE CONDITION. PT VENTILATED VIA TRACHEOSTOMY TUBE. SETTINGS PRESCRIBED. ALARMS SET PER PROTOCOL AND AUDIBLE. AMBU BAG AT BED SIDE. VENT PLUGGED IN TO RED OUTLET. FAMILY AT BED SIDE. NO DISTRESS NOTED. Addendum: 02/18/17 at 1848 by JENNIFER DUNHAM RT Amended: Links added.
[2017-02-18] MEDS: PHENYLEPHRINE 80 MG in IV D5W 250 ML IV PRN (19:54)
--- NOTE | 2017-02-18 20:00 | NUR ---
FLAT LOCK MACHINE OPERATOR - notes - Received pt obtunded. Trach to mechanical vent, with settings as ordered. No s/s of pain or discomfort. No cough or gag reflex noted when suctioned. GT to low intermittent suction per md order at this time. Lujan catheter intact, anuric, minimal output noted. Pt hypotensive, on Levophed and neosynephrine titrated accordingly. AUGIE PICC line and VAN ML intact with IVF infusing well. Safety and comfort measures in place. Will continue to monitor pt closely.
[2017-02-18] MEDS: FAMOTIDINE (20 MG) 20 MG TABLET GT SCH (21:40)
[2017-02-18] MEDS: DONEPEZIL 5 MG TABLET GT SCH (21:40)
[2017-02-19] VITALS (80 sets, daily range): BP systolic 68–131; BP diastolic 35–75
[2017-02-19] MEDS: PHENYLEPHRINE 80 MG in IV D5W 250 ML IV PRN ×3 (03:04→14:56)
[2017-02-19] MEDS: ACYCLOVIR IV 500 MG in IV D5W 100 ML IV SCH ×2 (04:58→12:46)
[2017-02-19] MEDS: MEROPENEM 500 MG in IV NS 0.9% 50 ML IV SCH (04:58)
[2017-02-19] MEDS: BLOOD SUGAR DIAGNOSTIC 1 EACH STRIP IN SCH ×2 (05:04→11:29)
[2017-02-19] MEDS: METOCLOPRAMIDE HCL 10 MG/2 ML VIAL IV SCH ×2 (05:05→11:33)
[2017-02-19] MEDS: INSULIN REGULAR, HUMAN 100 UNIT/ML 3 ML VIAL SQ PRN ×2 (05:12→11:31)
[2017-02-19 05:23] LABS: EOSINOPHILS % (AUTO) 0.5 % (0.0-6.0); HEMATOCRIT 28 % (33-45); HEMOGLOBIN 9.6 g/dL (11.5-14.8); LYMPHOCYTES # (AUTO) 0.4 /CMM (0.8-4.8); LYMPHOCYTES % (AUTO) 5.3 % (20.0-44.0); MEAN CORPUSCULAR HEMOGLOBIN 31 PG (26.0-33.0); MEAN CORPUSCULAR HGB CONC 34 g/dl (31.0-36.0); MEAN CORPUSCULAR VOLUME 90 fL (82-100); NEUTROPHILS # (AUTO) 6.6 /CMM (1.8-8.9); NEUTROPHILS % (AUTO) 94.2 % (43.0-81.0); RDW COEFFICIENT OF VARIATION 16.5 (11.5-15.0); RED BLOOD CELL COUNT(AUTO) 3.14 MIL/uL (4.0-5.2)
[2017-02-19 05:40] LABS: PLATELET COUNT (AUTO) 24 /CMM (150-450)
[2017-02-19 05:42] LABS: PLATELET COUNT (AUTO) 24 /CMM (150-450)
[2017-02-19 05:46] LABS: CALCIUM, SERUM 6.5 mg/dL (8.5-10.1); CARBON DIOXIDE 19 mmol/L (21-32); CHLORIDE 98 mmol/L (98-107); CREATININE 3.1 mg/dL (0.6-1.3); GLUCOSE 306 mg/dL (74-106); POTASSIUM 4.5 mmol/L (3.5-5.1); SODIUM SERUM 127 mmol/L (136-145); VANCOMYCIN,TROUGH 25 ug/ml (12-20)
[2017-02-19 05:51] LABS: UREA NITROGEN, BLOOD 86 mg/dL (7-18)
[2017-02-19 05:56] LABS: FIBRINOGEN ACTIVITY 463 Mg/dL (213-485); INR 1.29 (0.87-1.13); PARTIAL THROMBOPLASTIN TIME 53 SEC (23-34); PROTHROMBIN TIME 13.4 SECS (9.5-12.7)
[2017-02-19 06:23] LABS: D-DIMER > 35.20 mg/L(FEU (0.17-0.50)
[2017-02-19] MEDS: LEVOTHYROXINE SODIUM 25 MCG TABLET GT SCH (07:30)
--- NOTE | 2017-02-19 07:41 | NUR ---
INITIAL RECRUITER SPECIALIST NOTE RCVD PT WITH EYES OPEN, UNABLE TO FOLLOW SIMPLE COMMANDS, V-PACING ON TELE ON TWO PRESSORS MAINTAINING BP WITHIN PARAMETERS. TOLERATING ORDERED VENT SETTINGS, WHEEZING UPON AUSCULTATION NOTED. KHOURY TO GRAVITY DRAINING CRANBERRY COLORED URINE. G-TUBE PLACEMENT VERIFIED BY AUSCULTATION/ASPIRATION. IV SITES C/D/I/PATENT. NO S/O INFILTRATION/PHLEBITIS OBSERVED UPON FLUSHING. IVF INFUSING ORDERED. WILL CONTINUE TO MONITOR PT FOR SAFETY AND COMFORT. CALL LIGHT WITHIN REACH. BED IN LOW AND LOCKED POSITION.
[2017-02-19 07:57] LABS: LYMPHOCYTES % (MANUAL) 14 % (16-48); MONOCYTES % (MANUAL) 3 % (0-11.0); NEUTROPHILS % (MANUAL) 83 (42-76)
[2017-02-19] MEDS ORDERED: VANCOMYCIN 500 MG in IV D5W 100 ML IV SCH (08:00)
[2017-02-19] MEDS: ALBUTEROL FS 2.5 MG/0.5 ML VIAL.NEB NEB SCH ×3 (08:08→15:09)
[2017-02-19] MEDS: IPRATROPIUM NEB FS 0.5 MG/2.5 ML AMPUL.NEB NEB SCH ×3 (08:08→15:09)
--- NOTE | 2017-02-19 08:08 | NUR ---
RT PT RECEIVED TRACHED WITH A SHILEY 8, PT IS ON THE VENT WITH NOTED SETTINGS. PT DOES NOT FOLLOW COMMANDS OR RESPOND TO STIMULI. VENT ALARMS ARE SET AND AUDIBLE WITH BVM BY BEDSIDE. FX ARTIST CUFF PRESSURE NOTED. VENT IS PLUGGED INTO RED OUTLET. SX SMALL THICK YELLOW SECRETIONS. WILL CONTINUE TO MONITOR. Addendum: 02/19/17 at 1115 by ROCK YOUSIF RT Amended: Links added.
[2017-02-19] MEDS: DILTIAZEM HCL 30 MG TABLET GT SCH ×2 (08:24→12:46)
[2017-02-19] MEDS: methylPREDNISolone SOD SUCC 40 MG/ML VIAL IV SCH (08:24)
[2017-02-19] MEDS: PANTOPRAZOLE 40 MG VIAL IV SCH (08:24)
[2017-02-19] MEDS: IV D5/ 0.9% NACL 1,000 ML IV PRN (08:24)
[2017-02-19] MEDS: PROSOURCE / PROSTAT (PYXIS) 30 ML UDC GT SCH (08:25)
[2017-02-19] MEDS: ASCORBIC ACID 500 MG TABLET PO SCH (08:25)
[2017-02-19] MEDS: CARVEDILOL 6.25 MG TABLET GT SCH (08:25)
[2017-02-19] MEDS: ACIDOPHILUS/BULGARICUS 1 EACH TAB.CHEW GT SCH (08:25)
[2017-02-19] MEDS: MULTIVITAMINS,THERAGRAN 1 UDTAB TABLET PO SCH (08:25)
[2017-02-19] MEDS: NYSTATIN/TRIAMCIN CREAM 15 GM TUBE TP SCH (08:26)
[2017-02-19] MEDS: Z GUARD REMEDY 2 OZ OINT TP SCH (08:26)
[2017-02-19] MEDS: NEOMY SULF/BACITRAC ZN/POLY 15 GM TUBE TP SCH (08:27)
--- NOTE | 2017-02-19 09:15 | NUR ---
CHEMICAL MILLING PROCESSOR NOTE PT'S SON AT BEDSIDE UPDATED ON PT'S CONDITION. FRAME TENDER AT BEDSIDE PRAYING FOR PT. RN COMFORTED PT'S SON DURING PROCESS. PT'S SON APPEARS TO LEAN TOWARDS COMFORT CARE AT THIS TIME. RONAN LEE INFORMED NO NEW ORDERS RCVD. WILL CONTINUE TO MONITOR. Addendum: 02/19/17 at 1545 by CHRIS NDIAYE RN ADDENDUM RONAN LEE AWARE OF PT'S PINK COLORED URINE AND VERY LOW URINARY OUTPUT.
--- NOTE | 2017-02-19 10:19 | NUR ---
SPOKE WITH ROSALVA ROMERO. PT STILL UNSTABLE, CREATININE 3.1 WHICH IS TOO HIGH TO ADMINISTER IV CONTRAST.
--- NOTE | 2017-02-19 11:12 | NUR ---
SEED SALES MANAGER NOTE RONAN GONZALES FOR DR. VELASQUEZ IN UNIT INFORMED THAT NO OUTPUT FROM PEG SO FAR DURING SHIFT. SHE RECOMMENDED TO MOVE FORWARD WITH TUBE FEEDING AT A RATE OF 15 ML/HR. INFORMED HER THAT PT HAS IVF INFUSING, SHE RECOMMENDED TO CONTINUE WITH IVF PENDING PT'S TOLERANCE OF TUBE FEEDING. WILL CONTINUE TO MONITOR.
[2017-02-19] MEDS: NOREPINEPHRINE 16 MG in IV D5W 500 ML IV PRN (11:32)
[2017-02-19] MEDS ORDERED: RENAL NOVASOURCE 1,000 ML BOTTLE GT PRN (12:30)
--- NOTE | 2017-02-19 16:45 | NUR ---
ICU/RN DR MITCHELL AT BED SIDE.TALK TO THE FAMILY.PER FAMILY REQUEST .STOP ALL MEDS .AND COMFORT CARE.ALL PRESSORS STOP.FAMILY AT BEDSIDE.
--- NOTE | 2017-02-19 16:52 | NUR ---
KAPOK MACHINE OPERATOR NOTE PT'S SON AT BEDSIDE MADE DECISION TO PURSUE COMFORT MEASURES. DR. GUPTA AND RONAN LEE INFORMED. DR. MITCHELL AT BEDSIDE SPOKE WITH PT'S SON AND GAVE ORDERS TO WITHDRAW CARE INCLUDING VASOPRESSORS AND VENT. RT AT BEDSIDE PLACING PT ON TRACH COLLAR. PT'S SON, YULY, ACKNOWLEDGED INFORMATION AND AGREED TO PROCEED.
--- NOTE | 2017-02-19 17:22 | NUR ---
BREAD RACKER NOTE PT , PT'S SON AT BEDSIDE. DORIS COATES TO CONTACT [facility] PER PROTOCOL. PT'S BELONGINGS INCLUDING JEWELRY FROM [employer] HANDED TO PT'S SON, YULY. YULY GIVEN CONTACT INFORMATION TO CLAIM PT'S REMAINS.
[2017-02-19] MEDS ORDERED: LORAZEPAM INJ 2 MG/ML VIAL IV PRN (17:30)
[2017-02-19] MEDS ORDERED: MORPHINE SULFATE INJ 10 MG/ML DISP.SYRIN IM PRN (17:30)
[2017-02-20] MEDS ORDERED: ACYCLOVIR IV 500 MG in IV D5W 100 ML IV SCH (01:00)
[2017-02-20] MEDS ORDERED: VANCOMYCIN 500 MG in IV D5W 100 ML IV SCH (08:00)
[2017-02-22 12:07] LABS: *HSV 1 DNA PCR Negative (Negative); *HSV 2 DNA PCR Negative (Negative)
== END 2017-02-19 17:07 | disposition expired | DRG 4 ==
LOC: ER 13:52 → ICU 15:59 → TELE-TD 02-09 20:51 → TELE1 02-09 21:06 → ICU 02-17 06:11
PROVIDERS: ADMIT Legal Medicine; ATTEND Legal Medicine
PROC: 5A1955Z Respiratory Ventilation, Greater than 96 Consecutive Hours (ICD-10-PCS; principal; 2017-01-24)
PROC: 0BH17EZ Insertion of Endotracheal Airway into Trachea, Via Natural or Artificial Opening (ICD-10-PCS; 2017-01-24)
PROC: 05H633Z Insertion of Infusion Device into Left Subclavian Vein, Percutaneous Approach (ICD-10-PCS; 2017-01-25)
PROC: B547ZZA Ultrasonography of Left Subclavian Vein, Guidance (ICD-10-PCS; 2017-01-25)
PROC: 5A09357 Assistance with Respiratory Ventilation, Less than 24 Consecutive Hours, Continuous Positive Airway Pressure (ICD-10-PCS; 2017-01-29)
PROC: 5A1955Z Respiratory Ventilation, Greater than 96 Consecutive Hours (ICD-10-PCS; 2017-02-02)
PROC: 0BH17EZ Insertion of Endotracheal Airway into Trachea, Via Natural or Artificial Opening (ICD-10-PCS; 2017-02-02)
PROC: 30233N1 Transfusion of Nonautologous Red Blood Cells into Peripheral Vein, Percutaneous Approach (ICD-10-PCS; 2017-02-05)
PROC: 0B110F4 Bypass Trachea to Cutaneous with Tracheostomy Device, Open Approach (ICD-10-PCS; 2017-02-07)
PROC: 0DH63UZ Insertion of Feeding Device into Stomach, Percutaneous Approach (ICD-10-PCS; 2017-02-08)
PROC: 0DD58ZX Extraction of Esophagus, Via Natural or Artificial Opening Endoscopic, Diagnostic (ICD-10-PCS; 2017-02-08)
DX: A41.9 Sepsis, unspecified organism (principal); N17.0 Acute kidney failure with tubular necrosis; R65.21 Severe sepsis with septic shock; D65 Disseminated intravascular coagulation [defibrination syndrome]; E43 Unspecified severe protein-calorie malnutrition; J18.9 Pneumonia, unspecified organism; D61.818 Other pancytopenia; G92 Toxic encephalopathy; J96.02 Acute respiratory failure with hypercapnia; J96.01 Acute respiratory failure with hypoxia; J44.0 Chronic obstructive pulmonary disease with (acute) lower respiratory infection; E87.0 Hyperosmolality and hypernatremia; I13.0 Hypertensive heart and chronic kidney disease with heart failure and stage 1 through stage 4 chronic kidney disease, or unspecified chronic kidney disease; J44.1 Chronic obstructive pulmonary disease with (acute) exacerbation; Z99.11 Dependence on respirator [ventilator] status; N39.0 Urinary tract infection, site not specified; J45.901 Unspecified asthma with (acute) exacerbation; L89.159 Pressure ulcer of sacral region, unspecified stage; I50.9 Heart failure, unspecified; R13.10 Dysphagia, unspecified; Z99.81 Dependence on supplemental oxygen; F03.90 Unspecified dementia, unspecified severity, without behavioral disturbance, psychotic disturbance, mood disturbance, and anxiety; E03.9 Hypothyroidism, unspecified; Z91.040 Latex allergy status; Z79.82 Long term (current) use of aspirin; Z79.899 Other long term (current) drug therapy; R91.1 Solitary pulmonary nodule; I25.10 Atherosclerotic heart disease of native coronary artery without angina pectoris; F41.9 Anxiety disorder, unspecified; F32.9 Major depressive disorder, single episode, unspecified; Z87.891 Personal history of nicotine dependence; Z87.01 Personal history of pneumonia (recurrent); Z79.51 Long term (current) use of inhaled steroids; Z66 Do not resuscitate; Z51.5 Encounter for palliative care; M19.90 Unspecified osteoarthritis, unspecified site; N18.9 Chronic kidney disease, unspecified; K21.0 Gastro-esophageal reflux disease with esophagitis; R41.0 Disorientation, unspecified; D64.9 Anemia, unspecified; K22.8 Other specified diseases of esophagus; E87.6 Hypokalemia; D63.8 Anemia in other chronic diseases classified elsewhere; L98.9 Disorder of the skin and subcutaneous tissue, unspecified; M41.9 Scoliosis, unspecified; B35.6 Tinea cruris; T37.5X5A Adverse effect of antiviral drugs, initial encounter; Y92.89 Other specified places as the place of occurrence of the external cause; D47.2 Monoclonal gammopathy
CPT/HCPCS: 31720; 36415; 36600; 43246; 70450-TC; 71010-TC; 74000-TC; 76770-TC; 80048-TC; 80053-TC; 80076-TC; 80202-TC; 81000-TC; 82232; 82272-TC; 82550-TC; 82553-TC; 82570-TC; 82746; 82784; 82803-TC; 82962-TC; 83605-TC; 83735-TC; 83880; 83970; 84100-TC; 84132-TC; 84155; 84155-TC; 84165; 84300-TC; 84443-TC; 84484-TC; 85025-TC; 85396; 85730-TC; 86334; 86694; 86850-TC; 86921-TC; 87040-TC; 87081-TC; 87086-TC; 88305-TC; 88342; 89051-TC; 94002-TC; 94003-TC; 94660; 94760-TC; 94762-TC; 94799-TC; 95819-TC; 99082-TC; A4216; A4606; A6248; A6402; A7526; C1751; C9113; J0133; J0330; J0360; J0690; J0692; J1630; J1650; J1815; J2060; J2185; J2248; J2270; J2370; J2543; J2704; J2765; J2920; J2930; J3010; J3370; J3475; J3480; J3490; J7030; J7040; J7042; J7050; J7060; P9016-BL; P9047; Q9963; Z7610